=== PATIENT | male | born 1985 ===

== ENCOUNTER 2023-07-02 08:56 | Emergency (ER) | payer OTHER, SELFPAY ==
[2023-07-02 09:06] VITALS: BP 160/80; PULSE 89; RESP 18; TEMP 37.1; O2SAT 100; BMI 21.8
[2023-07-02 09:28] LABS: IDNOW Serial# BCCEAD1C
--- NOTE | 2023-07-02 09:34 | ED.GENADULT ---
HPI - General Adult General Chief complaint: Dizziness Stated complaint: dizziness Time Seen by Provider: 07/02/23 09:20 Source: patient Mode of arrival: ambulatory Limitations: no limitations History of Present Illness HPI narrative: This is a 37 years old male presented to the emergency department with chief complaint of chills malaise weakness. He states that he has been using cocaine. He does no want to go to rehab he states that he just got out of the rehab Onset (ago): day(s) (2) Radiation: non-radiation Severity: moderate Pain Consistency: constant Relieving factors: none Related Data Allergies Allergy/AdvReac Type Severity Reaction Status Date / Time No Known Allergies Allergy Unverified 05/13/20 17:17 [No Known Allergies*] Review of Systems Constitutional: Constitutional: Reports no additional constitutional complaints Cardiovascular: Cardiovascular: Reports no additional cardiovascular complaints Neurologic: Reports system reviewed and no additional complaints, except as documented [facility] Past Medical History [facility] Narrative: cocaine use Social History Social History Unable to assess alcohol history related to: Refusing to respond Smoked in Last 30 Days: Yes Use of substances other than those prescribed or required for medical reasons: Yes Substance Use Type: Crack/Cocaine and Marijuana Advance Directives: No Advance Directives Information Provided: No Physical Exam ED Vital Signs: Vital Signs - 24 hr 07/02/23 09:06 07/02/23 09:50 07/02/23 12:41 Temperature 98.8 F 98 F Pulse Rate 89 86 Respiratory Rate 18 20 14 Blood Pressure 160/80 H 110/70 Pulse Oximetry 100 96 Oxygen Delivery Method Room Air Room Air BMI result Body Mass Index 21.8 Const General: cooperative Nutritional Appearance: well nourished Orientation/consciousness: patient oriented x3 HENMT Head: Yes normal to inspection Ears: hearing grossly normal bilaterally Face and sinus: Yes normal facial exam Mouth: Normal oral and palatal mucosa present Throat: Yes posterior oropharynx normal Neck Neck: Yes normal visual inspection Thyroid: Thyroid normal Resp Effort & Inspection: normal respiratory effort Auscultation: clear to auscultation bilaterally Cardio Jugular venous distension: no JVD Palpation: normal PMI Rate: regular rate Rhythm: regular rhythm GI Inspection: Yes normal to inspection Palpation (GI): Soft to palpation, not firm and nontender Percussion: Yes normal to percussion Auscultation: normal bowel sounds Skin General skin exam: no rashes or lesions noted and elasticity normal Lesions: no lesions Rashes: no rashes Neuro General: patient oriented x3 Cranial nerves: Yes CN's II-XII intact bilaterally Course Reevaluation(s) Reevaluation #1: seen by reading recovery teacher decline detox Time: 14:17 Medications Administered Discontinued Medications Generic Name Dose Route Start Last Admin Trade Name fEraq PRN Reason Stop Dose Admin Ibuprofen 800 mg 07/02/23 09:25 07/02/23 09:39 Ibuprofen 800 Mg Tablet PO 07/02/23 09:26 800 mg ONCE ONE Administration Ondansetron HCl 4 mg 07/02/23 09:25 07/02/23 09:39 Ondansetron Odt 4 Mg Tab.Rapdis TRANSLINGU 07/02/23 09:26 4 mg ONCE ONE Administration Medical Decision Making Medical Decision Making [facility] Narrative: Patient presented complaining of generalized malaise dizziness he has been using cocaine. will obtain blood work and reassess Differential Diagnosis Differential Diagnoses: The differential diagnosis associated with the presentation includes Cocaine abuse/drug withdrawal/infection Admission/Observation Consideration of admission/observation: Escalation of care including admission/observation considered Lab Data [facility] Lab Attestation statement: I reviewed the patient's lab results. 07/02/23 09:44 07/02/23 09:44 Labs: Lab Results 07/02/23 07/02/23 Range/Units 09:09 09:44 WBC 10.2 (4.8-10.8) X10*3/uL RBC 4.73 (4.60-5.80) X10*6/uL Hgb 14.8 (14.0-18.0) g/dl Hct 42.5 (42.0-52.0) % MCV 89.9 (80.0-98.0) fL MCH 31.3 (27.0-33.0) pg MCHC 34.8 (31.0-36.0) g/dl RDW 12.7 (11.0-16.0) % Plt Count 383 (160-400) X10*3/uL MPV 8.5 L (9.4-12.4) fL Immature Gran % (Auto) 0.5 H (0.0-0.4) % Neut % (Auto) 63.1 (45-73) % Lymph % (Auto) 24.7 (20-40) % [place] % (Auto) 9.8 (2-11) % Eos % (Auto) 1.5 (0-4) % Baso % (Auto) 0.4 (0-2) % Lymph # (Auto) 2.5 (1.2-4.9) X10*3/uL [place] # (Auto) 1.0 (0.1-1.2) X10*3/uL Eos # (Auto) 0.2 (0.0-0.4) X10*3/uL Baso # (Auto) 0.0 (0.0-0.2) X10*3/uL Abs Immat Gran (auto) 0.05 H (0.00-0.03) X10*3/uL Absolute Neuts (auto) 6.5 (2.0-8.3) x10*3/uL Absolute Nucleated RBC 0.000 (0.0-0.012) X10*3/uL Nucleated RBC % (auto) 0.0 (0.0-0.2) /100WBC Sodium 140 (135-145) mmol/L Potassium 3.7 (3.3-5.1) mmol/L Chloride 102 (96-108) mmol/L Carbon Dioxide 25 (22-29) mmol/L Anion Gap 17 (12-20) BUN 13 (9-16) mg/dL Creatinine 0.94 (0.5-1.4) mg/dL Estim Creat Clear Calc 115.0 Estimated GFR > 60 Random Glucose 84 (60-115) mg/dL Calcium 10.2 (8.4-10.2) mg/dL Total Bilirubin 0.7 (0.0-1.0) mg/dL AST 20 (5-37) U/L ALT 14 (0-40) U/L Alkaline Phosphatase 67 (39-117) U/L Total Protein 8.1 H (6.5-8.0) g/dL Albumin 4.7 (3.5-5.0) g/dL COVID-19 ([facility]SELMO) Negative (Negative) COVID-19 Clin Com See Note Chronic Conditions Patient?s care impacted by: Other (substance abuse) Social Determinants Patient?s care significantly limited by Social Determinants of Health including: Inadequate housing homeless,drug abuse Discharge Plan Discharge Clinical Impression: Drug abuse, Cocaine abuse Patient Disposition: Home, Self-Care Instructions: Cocaine Abuse (ED) Additional Instructions: Follow-up with your primary care physician you declined detox return if you are worse Referrals: Physician,None [Primary Care Provider] - 2 days
[2023-07-02] MEDS: Ibuprofen 800 MG TABLET PO (09:39)
[2023-07-02] MEDS: Ondansetron ODT 4 MG TAB.RAPDIS TRANSLINGU (09:39)
[2023-07-02 09:50] VITALS: RESP 20; TEMP 36.6
[2023-07-02 09:50] LABS: MANUAL DIFF FLAG NO
[2023-07-02 09:52] LABS: Basophils Percent Auto 0.4 % (0-2); Eosinophils Absolute Auto 0.2 X10*3/uL (0.0-0.4); Eosinophils Percent Auto 1.5 % (0-4); Hematocrit 42.5 % (42.0-52.0); Hemoglobin 14.8 g/dl (14.0-18.0); Imm Gran Abs Auto 0.05 X10*3/uL (0.00-0.03); Imm Gran Pct Auto 0.5 % (0.0-0.4); Lymphocytes Absolute Auto 2.5 X10*3/uL (1.2-4.9); Lymphocytes Percent Auto 24.7 % (20-40); Mean Corpuscular HGB Conc 34.8 g/dl (31.0-36.0); Mean Corpuscular Hemoglobin 31.3 pg (27.0-33.0); Mean Corpuscular Volume 89.9 fL (80.0-98.0); Mean Platelet Volume 8.5 fL (9.4-12.4); Monocytes Percent Auto 9.8 % (2-11); Neutrophils Absolute Auto 6.5 x10*3/uL (2.0-8.3); Neutrophils Percent Auto 63.1 % (45-73); Platelet Count 383 X10*3/uL (160-400); Red Blood Count 4.73 X10*6/uL (4.60-5.80); Red Cell Distribution Width 12.7 % (11.0-16.0); White Blood Count 10.2 X10*3/uL (4.8-10.8)
[2023-07-02 10:13] LABS: Alanine Aminotransferase 14 U/L (0-40); Albumin Level 4.7 g/dL (3.5-5.0); Alkaline Phosphatase 67 U/L (39-117); Anion Gap 17 (12-20); Aspartate Amino Transferase 20 U/L (5-37); Bilirubin Total 0.7 mg/dL (0.0-1.0); Blood Urea Nitrogen 13 mg/dL (9-16); Calcium 10.2 mg/dL (8.4-10.2); Carbon Dioxide 25 mmol/L (22-29); Chloride 102 mmol/L (96-108); Estimated Glomerular Filt Rate > 60; Glucose Random 84 mg/dL (60-115); Potassium 3.7 mmol/L (3.3-5.1); Sodium 140 mmol/L (135-145); Total Protein 8.1 g/dL (6.5-8.0)
[2023-07-02 11:35] LABS: COVID-19 Test Negative (Negative)
[2023-07-02 12:41] VITALS: BP 110/70; PULSE 86; RESP 14; O2SAT 96
--- NOTE | 2023-07-02 12:43 | MHC.RECOVSUP ---
Met with pt in ED6h who is here for dizziness. Pt informs he has been using about an 8 ball of cocaine nasally every day but has no interest in ATS at this time. Pt provided resources and has no other questions or concerns at this time.
== END 2023-07-02 14:30 | disposition home or self-care (01) ==
PROVIDERS: Emergency Provider Emergency Medicine
DX: R42 Dizziness and giddiness (principal); F14.10 Cocaine abuse, uncomplicated; F12.90 Cannabis use, unspecified, uncomplicated; Z71.51 Drug abuse counseling and surveillance of drug abuser; Z11.52 Encounter for screening for COVID-19; Z20.822 Contact with and (suspected) exposure to COVID-19; Z79.899 Other long term (current) drug therapy
CPT/HCPCS: 36415; 80053; 85025; 87635; 99283; 99284

== ENCOUNTER 2023-09-06 11:33 | Emergency (ER) | payer OTHER, SELFPAY ==
--- NOTE | ~2023-09-06 | XR_ITS ---
EXAMINATION: XR CHEST 12:23 PM CLINICAL INFORMATION: Chest pain COMPARISON: None available. TECHNIQUE: Frontal view of the chest was obtained. FINDINGS: No significant abnormality is noted involving the heart, lungs, mediastinum, bony thorax or soft tissues. XR/XR chest 1V IMPRESSION: No acute disease
--- NOTE | 2023-09-06 11:34 | ECG_ITS ---
Test Reason : chest pain/OD Blood Pressure : / mmHG Vent. Rate : 070 BPM Atrial Rate : 070 BPM P-R Int : 154 ms QRS Dur : 090 ms QT Int : 394 ms P-R-T Axes : 082 055 076 degrees QTc Int : 425 ms Normal sinus rhythm Normal ECG When compared with ECG of 22-JUL-2008 12:40, No significant change was found Referred By: Generic ED Physician Electronically Signed By:SEBASTIEN MATA MD
[2023-09-06 11:50] VITALS: BP 110/73; PULSE 82; RESP 20; TEMP 36.6; O2SAT 98; BMI 19.8
[2023-09-06 12:35] LABS: MANUAL DIFF FLAG NO
[2023-09-06 12:37] LABS: Basophils Percent Auto 0.2 % (0-2); Eosinophils Percent Auto 0.1 % (0-4); Hematocrit 39.8 % (42.0-52.0); Hemoglobin 13.7 g/dl (14.0-18.0); Imm Gran Abs Auto 0.07 X10*3/uL (0.00-0.03); Imm Gran Pct Auto 0.4 % (0.0-0.4); Lymphocytes Absolute Auto 1.5 X10*3/uL (1.2-4.9); Lymphocytes Percent Auto 8.3 % (20-40); Mean Corpuscular HGB Conc 34.4 g/dl (31.0-36.0); Mean Corpuscular Hemoglobin 31.1 pg (27.0-33.0); Mean Corpuscular Volume 90.5 fL (80.0-98.0); Mean Platelet Volume 8.6 fL (9.4-12.4); Monocytes Absolute Auto 1.3 X10*3/uL (0.1-1.2); Neutrophils Absolute Auto 15.6 x10*3/uL (2.0-8.3); Platelet Count 322 X10*3/uL (160-400); Red Cell Distribution Width 14.4 % (11.0-16.0); White Blood Count 18.5 X10*3/uL (4.8-10.8)
[2023-09-06] MEDS: ondansetron HCL 4 MG/2 ML VIAL IVPUSH (12:38)
[2023-09-06] MEDS: 0.9 % Sodium Chloride 1,000 ML 999 ML IV (12:38)
--- NOTE | 2023-09-06 12:43 | ED_ITS ---
HPI - General Adult General Chief complaint: ETOH/Substance Use Stated complaint: OD? Time Seen by Provider: 09/06/23 12:05 Source: patient Mode of arrival: ambulatory Limitations: no limitations History of Present Illness HPI narrative: 37-year-old male came in for evaluation of left-sided chest pain after smoked crack cocaine about 2 hours earlier. Patient only use cocaine by smoking no IV abuse, no family history of heart disease, chest pain is localized to the left side of the chest with no radiation the about 10. in severity. Related Data Allergies Allergy/AdvReac Type Severity Reaction Status Date / Time No Known Allergies Allergy Unverified 05/13/20 17:17 [No Known Allergies*] Review of Systems 2 Review of Systems: All other systems are reviewed and are negative Constitutional: Reports as per HPI and Reports no additional constitutional complaints Eyes: Reports as per HPI and Reports no additional eye complaints Reports system reviewed and no additional complaints, except as documented Cardiovascular: Reports as per HPI and Reports no additional cardiovascular complaints Respiratory: Reports as per HPI and Reports no additional respiratory complaints Gastrointestinal: Reports as per HPI and Reports no additional gastrointestinal complaints Genitourinary: Reports no additional female genitourinary complaints Musculoskeletal: Reports no additional musculoskeletal complaints Skin/Breast: Reports system reviewed and no additional complaints, except as docu Psychiatric: Reports no additional psychiatric complaints Endocrine: Reports no additional endocrine complaints Hematologic/Lymphatic: Reports no additional hematologic/lymphatic complaints Allergic/Immunologic: Reports no additional allergic/immunologic complaints Reports system reviewed and no additional complaints, except as documented and Reports Abnormal speech present [facility] Social History Social History Unable to assess alcohol history related to: Refusing to respond Substance Use Type: Crack/Cocaine and Marijuana Advance Directives: No Physical Exam ED Vital Signs: Vital Signs - 24 hr 09/06/23 11:50 09/06/23 14:31 Temperature 97.9 F Pulse Rate 82 55 Respiratory Rate 20 14 Blood Pressure 110/73 103/67 Pulse Oximetry 98 100 Oxygen Delivery Method Room Air Room Air BMI result Body Mass Index 19.8 Vital signs have been reviewed and appear to be correct. Blood pressure elevated. Heart rate normal. Respiratory rate normal. Temperature normal. Oxygen saturation normal. Appearance: Alert. Oriented X3. No acute distress. Head: Normal external exam. Normocephalic. Atraumatic. No Child signs noted. No raccoon eyes noted Eyes: PERRLA. EOMI. Conjunctiva and sclera normal. Eyelids normal. ENT: TM's Normal. Pharynx normal. Uvula midline. Moist mucous membranes. No trismus noted. No drooling noted. No muffled voice noted. Neck: Normal inspection. Neck supple. FROM. No adenopathy. Thyroid Normal. No meningeal signs. No neck mass noted. CVS: Normal heart rate and rhythm. Heart sound normal. No murmurs noted. Pulses normal throughout. Respiratory: No respiratory distress. Painless inspiration. Breath sounds normal. No wheezes/rales/rhonchi noted. Chest nontender. No accessory muscle usage noted or decreased air movement noted. Abdomen: Soft and nontender. Bowel sounds normal in all 4 quadrants. No distention noted. No organomegaly noted. No visible injury noted. Back: No CVA tenderness. Full range of motion noted. Skin: Skin warm and dry. Normal skin color. Normal skin turgor. No rashes/lesions/lacerations noted. Extremities: No lower extremity edema. Extremities exhibit normal range of motion. Extremities nontender. Neuro: Oriented X 3. Cranial nerve exam: II-XII are grossly intact No motor deficit. No sensory deficit. Reflexes normal. Course Reevaluation(s) Reevaluation #1: 37-year-old male came in for chest pain after using cocaine, EKG is unremarkable and troponin is negative x2 patient now is chest pain-free. Time: 15:57 Medications Administered Discontinued Medications Generic Name Dose Route Start Last Admin Trade Name Freq PRN Reason Stop Dose Admin Sodium Chloride 1,000 mls @ 999 mls/hr 09/06/23 12:13 09/06/23 12:38 Ns IV 09/06/23 13:13 999 mls/hr .Q1H1M ONE Administration Ondansetron HCl 4 mg 09/06/23 12:13 09/06/23 12:38 Ondansetron Hcl 4 Mg/2 Ml Vial IVPUSH 09/06/23 12:14 4 mg ONCE ONE Administration Medical Decision Making Differential Diagnosis Differential Diagnoses: The differential diagnosis associated with the presentation includes ( ACS, pneumothorax, pleural effusion, pneumonia, electrolyte abnormality, severe anemia.) Admission/Observation Consideration of admission/observation: Escalation of care including admission/observation considered Lab Data [facility] Lab Attestation statement: I reviewed the patient's lab results. 09/06/23 12:29 09/06/23 12:29 Labs: Lab Results 09/06/23 09/06/23 Range/Units 12:29 15:16 WBC 18.5 H (4.8-10.8) X10*3/uL RBC 4.40 L (4.60-5.80) X10*6/uL Hgb 13.7 L (14.0-18.0) g/dl Hct 39.8 L (42.0-52.0) % MCV 90.5 (80.0-98.0) fL MCH 31.1 (27.0-33.0) pg MCHC 34.4 (31.0-36.0) g/dl RDW 14.4 (11.0-16.0) % Plt Count 322 (160-400) X10*3/uL MPV 8.6 L (9.4-12.4) fL Immature Gran % (Auto) 0.4 (0.0-0.4) % Neut % (Auto) 84.0 H (45-73) % Lymph % (Auto) 8.3 L (20-40) % [place] % (Auto) 7.0 (2-11) % Eos % (Auto) 0.1 (0-4) % Baso % (Auto) 0.2 (0-2) % Lymph # (Auto) 1.5 (1.2-4.9) X10*3/uL [place] # (Auto) 1.3 H (0.1-1.2) X10*3/uL Eos # (Auto) 0.0 (0.0-0.4) X10*3/uL Baso # (Auto) 0.0 (0.0-0.2) X10*3/uL Abs Immat Gran (auto) 0.07 H (0.00-0.03) X10*3/uL Absolute Neuts (auto) 15.6 H (2.0-8.3) x10*3/uL Absolute Nucleated RBC 0.000 (0.0-0.012) X10*3/uL Nucleated RBC % (auto) 0.0 (0.0-0.2) /100WBC Sodium 139 (135-145) mmol/L Potassium 4.0 (3.3-5.1) mmol/L Chloride 106 (96-108) mmol/L Carbon Dioxide 25 (22-29) mmol/L Anion Gap 12 (12-20) BUN 11 (9-16) mg/dL Creatinine 0.83 (0.5-1.4) mg/dL Estim Creat Clear Calc 118.4 Estimated GFR > 60 Random Glucose 63 (60-115) mg/dL Calcium 9.4 D (8.4-10.2) mg/dL Total Bilirubin 0.6 (0.0-1.0) mg/dL Direct Bilirubin 0.2 (0.0-0.5) mg/dL AST 15 (5-37) U/L ALT 9 (0-40) U/L Alkaline Phosphatase 50 (39-117) U/L Troponin I High Sens 4.3 6.1 (<3.5-35.0) ng/L B-Natriuretic Peptide 17 (<100) pg/mL Total Protein 6.4 L (6.5-8.0) g/dL Albumin 4.0 (3.5-5.0) g/dL Lipase 21 (8-78) U/L Influenza Type A (PCR) NEGATIVE (Negative) Influenza Type B (PCR) NEGATIVE (Negative) RSV RNA Qual (PCR) NEGATIVE (Negative) SARS-CoV-2 RNA (RT-PCR) NEGATIVE (Negative) Independent Interpretation I performed an independent interpretation of an: EKG ( Normal sinus rhythm at 70 beats per minutes, normal intervals, no ST-T changes. no change from prior EKG) and Plain X-Ray ( Chest: No acute intrathoracic pathology.) Radiology Impression Discussion of test interpretation with radiology: I have reviewed the radiologist's reading. Discharge Plan Discharge Clinical Impression: Chest pain, Substance abuse Patient Disposition: Home, Self-Care Instructions: Polysubstance Abuse (ED)
[2023-09-06 12:49] LABS: Alanine Aminotransferase 9 U/L (0-40); Alkaline Phosphatase 50 U/L (39-117); Anion Gap 12 (12-20); Aspartate Amino Transferase 15 U/L (5-37); Bilirubin Direct 0.2 mg/dL (0.0-0.5); Bilirubin Total 0.6 mg/dL (0.0-1.0); Blood Urea Nitrogen 11 mg/dL (9-16); Calcium 9.4 mg/dL (8.4-10.2); Carbon Dioxide 25 mmol/L (22-29); Chloride 106 mmol/L (96-108); Creatinine Clr Calc Pharmacy 118.4; Estimated Glomerular Filt Rate > 60; Glucose Random 63 mg/dL (60-115); Lipase 21 U/L (8-78); Sodium 139 mmol/L (135-145); Total Protein 6.4 g/dL (6.5-8.0)
[2023-09-06 12:54] LABS: B Type Natriuretic Peptide 17 pg/mL (<100)
[2023-09-06 12:56] LABS: Troponin-I High Sensitivity 4.3 ng/L (<3.5-35.0)
[2023-09-06 13:21] LABS: Influenza A PCR NEGATIVE (Negative); Influenza B PCR NEGATIVE (Negative); Resp Syncy Virus RNA Qual PCR NEGATIVE (Negative); SARS COV2 PCR INHOUSE NEGATIVE (Negative)
[2023-09-06 14:31] VITALS: BP 103/67; PULSE 55; RESP 14; O2SAT 100
[2023-09-06 15:42] LABS: Troponin-I High Sensitivity 6.1 ng/L (<3.5-35.0)
[2023-09-06 16:00] VITALS: BP 116/66; PULSE 51; RESP 16; TEMP 36.7; O2SAT 99
== END 2023-09-06 16:31 | disposition home or self-care (01) ==
PROVIDERS: Emergency Provider Emergency Medicine
DX: R07.9 Chest pain, unspecified (principal); F19.10 Other psychoactive substance abuse, uncomplicated; Z11.52 Encounter for screening for COVID-19; Z20.822 Contact with and (suspected) exposure to COVID-19
CPT/HCPCS: 0241U; 36415; 71045; 80048; 80076; 83690; 83880; 84484; 85025; 93005; 96374; 99284; J2405

== ENCOUNTER → 2023-09-06 11:34 | Outpatient (BNV) | payer OTHER, SELFPAY | PROVIDERS: Emergency Provider Emergency Medicine; Visit Provider Internal Medicine Cardiovascular Disease | DX: R07.9 Chest pain, unspecified (principal) | CPT/HCPCS: 93010 ==

== ENCOUNTER 2023-10-12 17:31 | Emergency (ER) | payer OTHER, SELFPAY ==
--- NOTE | 2023-10-12 | ECG_ITS ---
Test Reason : CP Blood Pressure : / mmHG Vent. Rate : 072 BPM Atrial Rate : 072 BPM P-R Int : 146 ms QRS Dur : 084 ms QT Int : 384 ms P-R-T Axes : 065 072 068 degrees QTc Int : 420 ms Normal sinus rhythm Normal ECG When compared with ECG of 06-SEP-2023 11:38, No significant change was found Referred By: Generic ED Physician Electronically Signed By:Joselito Dickson
--- NOTE | ~2023-10-12 | XR_ITS ---
EXAMINATION: XR CHEST CLINICAL INFORMATION: Chest pain. COMPARISON: Chest radiograph 09/06/2023. TECHNIQUE: PA view of the chest was obtained. FINDINGS: Normal heart size. No focal airspace opacities, pleural effusion or pneumothorax. No acute osseous findings. Visualized upper abdomen is within normal limits. XR/XR chest 1V IMPRESSION: No acute cardiopulmonary findings.
[2023-10-12 17:34] VITALS: BP 125/81; PULSE 86; RESP 18; TEMP 37.3; O2SAT 96; BMI 21.8
[2023-10-12 17:57] LABS: MANUAL DIFF FLAG NO
[2023-10-12 18:01] LABS: Basophils Percent Auto 0.3 % (0-2); Eosinophils Absolute Auto 0.1 X10*3/uL (0.0-0.4); Hematocrit 39.8 % (42.0-52.0); Hemoglobin 13.5 g/dl (14.0-18.0); Imm Gran Abs Auto 0.03 X10*3/uL (0.00-0.03); Imm Gran Pct Auto 0.3 % (0.0-0.4); Lymphocytes Absolute Auto 3.1 X10*3/uL (1.2-4.9); Lymphocytes Percent Auto 34.1 % (20-40); Mean Corpuscular HGB Conc 33.9 g/dl (31.0-36.0); Mean Corpuscular Hemoglobin 31.3 pg (27.0-33.0); Mean Corpuscular Volume 92.1 fL (80.0-98.0); Mean Platelet Volume 8.3 fL (9.4-12.4); Monocytes Absolute Auto 0.6 X10*3/uL (0.1-1.2); Monocytes Percent Auto 6.2 % (2-11); Neutrophils Absolute Auto 5.2 x10*3/uL (2.0-8.3); Neutrophils Percent Auto 58.1 % (45-73); Platelet Count 438 X10*3/uL (160-400); Red Blood Count 4.32 X10*6/uL (4.60-5.80); Red Cell Distribution Width 14.7 % (11.0-16.0); White Blood Count 8.9 X10*3/uL (4.8-10.8)
[2023-10-12 18:16] LABS: Anion Gap 11 (12-20); Blood Urea Nitrogen 10 mg/dL (9-16); Calcium 8.9 mg/dL (8.4-10.2); Carbon Dioxide 26 mmol/L (22-29); Chloride 108 mmol/L (96-108); Creatinine Clr Calc Pharmacy 146.6; Estimated Glomerular Filt Rate > 60; Glucose Random 98 mg/dL (60-115); Potassium 4.2 mmol/L (3.3-5.1); Sodium 141 mmol/L (135-145)
[2023-10-12 18:25] LABS: Troponin-I High Sensitivity < 2.7 ng/L (<3.5-35.0)
[2023-10-12 18:41] LABS: Influenza A PCR NEGATIVE (Negative); Influenza B PCR NEGATIVE (Negative); Resp Syncy Virus RNA Qual PCR NEGATIVE (Negative); SARS COV2 PCR INHOUSE NEGATIVE (Negative)
[2023-10-12 20:16] VITALS: BP 116/74; PULSE 57; RESP 17; TEMP 37.1; O2SAT 98
--- NOTE | 2023-10-12 21:00 | ED_ITS ---
HPI - Chest Pain General Chief Complaint: Chest Pain Stated Complaint: chest npain Time Seen by Provider: 10/12/23 20:59 Source: patient Mode of arrival: ambulatory Limitations: no limitations History of Present Illness HPI narrative: 38 yo male with remote history of asthma but no INH use recently he is a smoker presents with two complaints 1.) R lower dental pain for weeks but no facial swelling it comes and goes and hurts up and down his face. 2) uri symptoms cough runny nose and sore throat with chest tightness and sore chest to touch for 3 days no hx of cardiac issues. has taken no medications MD complaint: chest pain Onset (ago): day(s) (3) Timing of current episode: constant Prior episodes: Yes Onset: during rest Pain location: substernal Pain radiation: none Severity: moderate Quality: tightness Relieving factors: nothing Exacerbating factors: palpation Context: recent illness Associated symptoms: other (dental pain, runny nose cough, sore throat) Treatment prior to arrival: none Related Data Previous Rx's Medication Instructions Recorded albuterol sulfate 90 mcg/actuation 2 puff inhalation QID PRN 10/12/23 aerosol inhaler shortness of breath or wheezing #6.7 grams amoxicillin 500 mg capsule 500 mg PO TID 7 days #21 caps 10/12/23 ibuprofen 600 mg tablet 600 mg PO Q6H PRN pain #30 tabs 10/12/23 Allergies Allergy/AdvReac Type Severity Reaction Status Date / Time No Known Allergies Allergy Verified 10/12/23 17:36 [No Known Allergies*] Review of Systems 2 Review of Systems: Constitutional : No Fever, No Chills ENT/Mouth : No swallowing difficulty, no change in voice, positive dental pain, positive jaw pain, no facial swelling, pos runny nose, pos sore throat Eyes: No Eye Pain, No Swelling Cardiovascular : pos Chest Pain, No SOB Respiratory : pos Cough, No Sputum Gastrointestinal : No Nausea, No Vomiting, No Diarrhea Genitourinary : No Dysuria Musculoskeletal : No Myalgias Skin : No rash Neuro : No Weakness, No Numbness, No Headache All other systems reviewed and are negative [facility] Past Medical History Attestation statement: The following information was validated with the patient. Medical History Asthma Social History Social History (Updated 10/12/23 @ 21:25 by Anneliese Chu DO) Unable to assess alcohol history related to: Refusing to respond Patient Tobacco Use Status: Current everyday Tobacco user Substance Use Type: Crack/Cocaine and Marijuana Physical Exam 2 Vital Signs: Vital Signs: Last Vital Signs Temp 98.8 F 10/12/23 20:16 Pulse 57 10/12/23 20:16 Resp 17 10/12/23 20:16 BP 116/74 10/12/23 20:16 Pulse Ox 98 10/12/23 20:16 O2 Del Method Room Air 10/12/23 20:16 BMI result Body Mass Index 21.8 Appearance: Alert. Oriented X3. No acute distress. Eyes: Pupils equal, round and reactive to light. ENT: Pharynx normal. R lower molar impacted with sig decay and pulp exposed - no fluctuance, no trismus, no submandibular or sublingual swelling and no abscess seen or felt. R TM was normal Neck: Normal inspection. Neck supple. CVS: Normal heart rate and rhythm. Pulses normal. Chest: ttp along anterior chest wall costochondral border Respiratory: No respiratory distress. Breath sounds slightly diminished bilaterally. Abdomen: Soft and nontender. Skin: Skin warm and dry. Normal skin color. Normal skin turgor. Extremities: No lower extremity edema. Neuro: Oriented X 3. No motor deficit. No sensory deficit. Medical Decision Making Medical Decision Making [facility] Narrative: 38 yo male with smoker here with c/o toothache chest wall pain and with URI symptoms at this time no risk factors for ACS, he is PERC negative - suspect toothache and URI with costochondritis will obtain EKG, trop x 1 given pain for 3 days, CXR for pneumonia - start on INH, amoxicillin given exposed pulp of tooth and motrin. He has no deeper space infection of the mouth. Not toxic appearing. Differential Diagnosis Differential Diagnoses: The differential diagnosis associated with the presentation includes toothache, costochondritis, viral syndrome Admission/Observation Consideration of admission/observation: Escalation of care including admission/observation considered labs and EKG reassuring Lab Data [facility] Lab Attestation statement: I reviewed the patient's lab results. 10/12/23 17:52 10/12/23 17:52 Labs: Lab Results 10/12/23 Range/Units 17:52 WBC 8.9 (4.8-10.8) X10*3/uL RBC 4.32 L (4.60-5.80) X10*6/uL Hgb 13.5 L (14.0-18.0) g/dl Hct 39.8 L (42.0-52.0) % MCV 92.1 (80.0-98.0) fL MCH 31.3 (27.0-33.0) pg MCHC 33.9 (31.0-36.0) g/dl RDW 14.7 (11.0-16.0) % Plt Count 438 H D (160-400) X10*3/uL MPV 8.3 L (9.4-12.4) fL Immature Gran % (Auto) 0.3 (0.0-0.4) % Neut % (Auto) 58.1 (45-73) % Lymph % (Auto) 34.1 (20-40) % [place] % (Auto) 6.2 (2-11) % Eos % (Auto) 1.0 (0-4) % Baso % (Auto) 0.3 (0-2) % Lymph # (Auto) 3.1 (1.2-4.9) X10*3/uL [place] # (Auto) 0.6 (0.1-1.2) X10*3/uL Eos # (Auto) 0.1 (0.0-0.4) X10*3/uL Baso # (Auto) 0.0 (0.0-0.2) X10*3/uL Abs Immat Gran (auto) 0.03 (0.00-0.03) X10*3/uL Absolute Neuts (auto) 5.2 (2.0-8.3) x10*3/uL Absolute Nucleated RBC 0.000 (0.0-0.012) X10*3/uL Nucleated RBC % (auto) 0.0 (0.0-0.2) /100WBC Sodium 141 (135-145) mmol/L Potassium 4.2 (3.3-5.1) mmol/L Chloride 108 (96-108) mmol/L Carbon Dioxide 26 (22-29) mmol/L Anion Gap 11 L (12-20) BUN 10 (9-16) mg/dL Creatinine 0.73 (0.5-1.4) mg/dL Estim Creat Clear Calc 146.6 Estimated GFR > 60 Random Glucose 98 (60-115) mg/dL Calcium 8.9 (8.4-10.2) mg/dL Troponin I High Sens < 2.7 D (<3.5-35.0) ng/L Influenza Type A (PCR) NEGATIVE (Negative) Influenza Type B (PCR) NEGATIVE (Negative) RSV RNA Qual (PCR) NEGATIVE (Negative) SARS-CoV-2 RNA (RT-PCR) NEGATIVE (Negative) Independent Interpretation I performed an independent interpretation of an: EKG and Plain X-Ray (normal ) Interpretation: Rate: 72 Rhythm: NSR [place]: normal Normal P waves. Normal ADELINA. Normal QRS complex. ST T wave : normal no HOMAR qTC: normal prior studies: no acute ischemia The study has been interpreted contemporaneously by me. . Radiology Impression Discussion of test interpretation with radiology: I have reviewed the radiologist's reading. Prescription Management I considered prescription management with: Antibiotic and Other Discharge Plan Discharge Clinical Impression: Tooth ache, Acute costochondritis Patient Disposition: Home, Self-Care Instructions: Costochondritis (ED), Toothache (ED) Additional Instructions: return for worsening pain facial swelling fevers your blood tests, ekg and chest xray were normal your viral swabs for covid were negative finish all antibiotics you may have diarrhea please take a probioitic more than 8 loose stools a day is not normal Prescriptions: New amoxicillin 500 mg capsule 500 mg PO TID 7 Days Qty: 21 0RF ibuprofen 600 mg tablet 600 mg PO Q6H PRN (Reason: pain) Qty: 30 0RF albuterol sulfate 90 mcg/actuation HFA aerosol inhaler 2 puff inhalation QID PRN (Reason: shortness of breath or wheezing) Qty: 6.7 0RF
[2023-10-12] MEDS: Ibuprofen 600 MG TABLET PO (21:31)
[2023-10-12] MEDS: Albuterol Sulfate 90 MCG 8 GM INHALER 2 PUFF INHALE (21:31)
[2023-10-12] MEDS: Amoxicillin 500 MG CAPSULE PO (21:31)
== END 2023-10-12 21:52 | disposition home or self-care (01) ==
PROVIDERS: Emergency Provider Emergency Medicine
DX: M94.0 Chondrocostal junction syndrome [Tietze] (principal); K08.89 Other specified disorders of teeth and supporting structures; R07.89 Other chest pain; F17.200 Nicotine dependence, unspecified, uncomplicated; R05.9 Cough, unspecified; J02.9 Acute pharyngitis, unspecified; Z20.822 Contact with and (suspected) exposure to COVID-19; Z20.828 Contact with and (suspected) exposure to other viral communicable diseases
CPT/HCPCS: 0241U; 36415; 71045; 80048; 84484; 85025; 93005; 99284

== ENCOUNTER → 2023-10-12 17:45 | Outpatient (BNV) | payer OTHER, SELFPAY | PROVIDERS: Emergency Provider Emergency Medicine; Visit Provider Internal Medicine Cardiovascular Disease | DX: R07.9 Chest pain, unspecified (principal) | CPT/HCPCS: 93010 ==

== ENCOUNTER 2024-02-03 00:36 | Inpatient (IN) | payer OTHER, SELFPAY ==
[2024-02-03] VITALS (12 sets, daily range): BP systolic 112–130; BP diastolic 67–85; PULSE 58–94; RESP 17–20; TEMP 36.7–38.2; O2SAT 97–99; BMI 21.1
--- NOTE | ~2024-02-03 | CT_ITS ---
EXAMINATION: CT FEMUR WITH CONTRAST, RIGHT CLINICAL INFORMATION: COMPARISON: None available. TECHNIQUE: CT through the right femur was obtained after the uneventful administration of 85 mL of Omnipaque 350 intravenous contrast. Coronal and sagittal reformats were dated on a dedicated workstation for comparison. This CT examination was performed using dose optimization techniques as appropriate, variously including the following: *Automated exposure control *Adjustment of mA and/or kV according to patient size (this includes techniques or standardized protocols for targeted exams where dose is matched to indication/reason for exam; i.e. extremities or head) *Use of iterative reconstruction technique DLP: 470 mGy-cm FINDINGS: Marked skin thickening and subjacent subcutaneous fat stranding of the right anterolateral proximal thigh. Small, 2 cm focus of subcutaneous packing material centered near the location of greatest skin thickening, likely correlates to location of recent drainage. No discrete, rim-enhancing fluid collections identified. Inflammatory fat stranding about the anterior thigh musculature without definite evidence of intramuscular extension. Mildly enlarged right inguinal lymph nodes, measuring up to 1.2 cm in short axis, likely reactive. Osseous structures unremarkable without osseous cortical erosions, periosteal reaction, or osteopenia. Visualized right knee joint unremarkable. Visualized intrapelvic contents unremarkable. CT/CT femur RT w IV con IMPRESSION: 1. Marked skin thickening and subjacent subcutaneous fat stranding of the right anterolateral proximal thigh, in keeping with the provided history of skin/soft tissue infection. No discrete, rim-enhancing fluid collection identified or evidence of extension into the thigh musculature/osseous involvement. 2. Small, 2 cm focus of subcutaneous packing material centered near the location of greatest skin thickening, likely correlates to location of recent drainage. 3. Mildly enlarged right inguinal lymph nodes, likely reactive.
--- NOTE | ~2024-02-03 | CT_ITS ---
EXAMINATION: CT HEAD WITHOUT CONTRAST CLINICAL INFORMATION: Fall. Blurred vision. COMPARISON: None. TECHNIQUE: Contiguous axial imaging was performed from the skullbase to vertex without intravenous administration of contrast. This CT examination was performed using dose optimization techniques as appropriate, variously including the following: *Automated exposure control *Adjustment of mA and/or kV according to patient size (this includes techniques or standardized protocols for targeted exams where dose is matched to indication/reason for exam; i.e. extremities or head) *Use of iterative reconstruction technique DLP: 803 mGy-cm. FINDINGS: There is no evidence of acute intracranial hemorrhage or territorial infarction. No abnormal mass effect or midline shift is seen. No extra-axial fluid collections are identified. There is mild prominence of the lateral ventricles, otherwise nonspecific. The third and fourth ventricles are normal in size. There is no abnormal attenuation within the brain parenchyma. There is a fluid level in the aditus ad antrum with soft tissue opacification of the left mastoid air cells. Although not targeted for evaluation, the tympanic membrane on the left side appears retracted and a portion of the short process of the incus in the left middle ear cavity is eroded with focal soft tissue density at this site in the fossa incudis. There are some areas of osseous thinning in the tegmen mastoideum on the left side as well. The right mastoid air cells and visualized portions of the paranasal sinuses are fairly well aerated. The adenoid soft tissues are prominent, measuring up to 2 cm in oblique AP dimension. CT/CT head/brain wo IV con IMPRESSION: No acute intracranial pathology. Mild disproportionate prominence of the lateral ventricles may be developmental. No obvious obstructing lesion visible. Adenoid tonsillar hypertrophy. Fluid level in the aditus ad antrum with soft tissue opacification of the left mastoid air cells. Areas of osseous thinning in the tegmen mastoideum as well. Additional soft tissue density at the expected site of the reported short process of the incus in the epitympanum of the left middle ear cavity. Perceived retraction of the tympanic membrane. The possibility of chronic otomastoiditis and an underlying cholesteatoma cannot be ruled out. Recommend follow-up ENT evaluation to guide further management.
--- NOTE | ~2024-02-03 | US_ITS ---
EXAMINATION: US SCROTUM CLINICAL INFORMATION: Lump right scrotum. COMPARISON: None available. TECHNIQUE: A sonogram of the scrotum was performed assessing preston-scale appearance and color Doppler flow. Spectral Doppler analysis of the arterial and venous flow were performed in the testes bilaterally. FINDINGS: RIGHT: Right testicle measures 3.4 x 4.5 x 2.1 cm, volume 17.0 mL. Innumerable echogenic foci scattered within the testicle are characteristic of microcalcifications. Spectral Doppler analysis of the arterial and venous flow is normal in the right testis. 0.5 x 0.3 x 0.4 cm cyst in the right epididymal head. No right hydrocele or varicocele is seen. Right epididymal Doppler flow is normal. No significant hydrocele. No significant varicocele. LEFT: Left testicle measures 4.9 x 2.3 x 2.8 cm, volume 15.8 mL. Innumerable echogenic foci scattered within the testicle are characteristic of microcalcifications. Spectral Doppler analysis of the arterial and venous flow is normal in the left testis. Left epididymal head is normal in size. No left hydrocele or varicocele is seen. Left epididymal Doppler flow is normal. A small echogenic focus in the left scrotum may represent a scrotal colin. No significant hydrocele. No significant varicocele. US/US scrotum IMPRESSION: 1. 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 2. A 0.5 cm cyst in the right epididymal head. 3. A small echogenic focus in the left scrotum may represent a scrotal colin. This study was presented today February 05, 2024 for interpretation. Stat results provided at this time as requested by referring provider.
[2024-02-03 01:18] LABS: Basophils Absolute Auto 0.1 X10*3/uL (0.0-0.2); Basophils Percent Auto 0.3 % (0-2); Eosinophils Absolute Auto 0.1 X10*3/uL (0.0-0.4); Eosinophils Percent Auto 0.3 % (0-4); Hematocrit 36.6 % (42.0-52.0); Hemoglobin 12.6 g/dl (14.0-18.0); Imm Gran Abs Auto 0.09 X10*3/uL (0.00-0.03); Imm Gran Pct Auto 0.5 % (0.0-0.4); Lymphocytes Absolute Auto 1.4 X10*3/uL (1.2-4.9); Lymphocytes Percent Auto 7.9 % (20-40); MANUAL DIFF FLAG NO; Mean Corpuscular HGB Conc 34.4 g/dl (31.0-36.0); Mean Corpuscular Hemoglobin 31.6 pg (27.0-33.0); Mean Corpuscular Volume 91.7 fL (80.0-98.0); Mean Platelet Volume 8.2 fL (9.4-12.4); Monocytes Absolute Auto 1.2 X10*3/uL (0.1-1.2); Neutrophils Absolute Auto 14.8 x10*3/uL (2.0-8.3); Platelet Count 376 X10*3/uL (160-400); Red Blood Count 3.99 X10*6/uL (4.60-5.80); White Blood Count 17.6 X10*3/uL (4.8-10.8)
[2024-02-03 01:32] LABS: Alanine Aminotransferase 13 U/L (0-40); Alkaline Phosphatase 72 U/L (39-117); Anion Gap 14 (12-20); Aspartate Amino Transferase 18 U/L (5-37); Bilirubin Total 0.2 mg/dL (0.0-1.0); Blood Urea Nitrogen 10 mg/dL (9-16); Calcium 9.7 mg/dL (8.4-10.2); Carbon Dioxide 29 mmol/L (22-29); Chloride 98 mmol/L (96-108); Creatinine Clr Calc Pharmacy 138.4; Estimated Glomerular Filt Rate > 60; Glucose Random 101 mg/dL (60-115); Potassium 3.9 mmol/L (3.3-5.1); Sodium 137 mmol/L (135-145); Total Protein 7.5 g/dL (6.5-8.0)
--- NOTE | 2024-02-03 02:50 | ED_ITS ---
HPI - Skin/Abscess/Foreign Bdy General Chief complaint: Skin/Abscess/Foreign Body Stated complaint: leg pain Time Seen by Provider: 02/03/24 02:44 Source: patient Mode of arrival: EMS Limitations: no limitations History of Present Illness ED Provider: Dr. Vic Singleton HPI narrative: 38-year-old male with a history of asthma and cocaine use disorder who presents emergency department for evaluation of pain in his right upper thigh. Patient states that he uses crack cocaine mixed with fentanyl, he smokes 5-10 times a day and did smoke prior to coming to the emergency department. He states that when he uses drugs he picks at his skin after especially after using cocaine. He states he noticed a small red dot on his right thigh that then became larger and more painful. He states this is grown over the last 10 days. States the wound was draining white pus. He states that a fever at home. He states that the red areas very warm to the touch. He states he is feeling fatigued, he denied chest pain shortness of breath, nausea, vomiting or diarrhea. Related Data Previous Rx's ?Medication ?Instructions ?Recorded albuterol sulfate 90 mcg/actuation 2 puff inhalation QID PRN 10/12/23 aerosol inhaler shortness of breath or wheezing #6.7 grams amoxicillin 500 mg capsule 500 mg PO TID 7 days #21 caps 10/12/23 ibuprofen 600 mg tablet 600 mg PO Q6H PRN pain #30 tabs 10/12/23 Allergies Allergy/AdvReac Type Severity Reaction Status Date / Time No Known Allergies Allergy Verified 02/03/24 00:50 [No Known Allergies*] Review of Systems 2 Review of Systems: Yes all other systems are reviewed and are negative PMFSH Past Medical History Medical History Asthma Social History Social History Unable to assess alcohol history related to: Refusing to respond Patient Tobacco Use Status: Current everyday Tobacco user Substance Use Type: Crack/Cocaine and Marijuana Advance Directives: No Advance Directives Information Provided: No Physical Exam 2 Vital Signs: Vital Signs: Last Vital Signs Temp 99.2 F 02/03/24 02:05 Pulse 88 02/03/24 02:05 Resp 18 02/03/24 02:05 BP 115/71 02/03/24 02:05 Pulse Ox 97 02/03/24 02:05 O2 Del Method Room Air 02/03/24 02:05 BMI result Body Mass Index 21.1 Vital signs were no Exam: General: Awake, alert in no distress Head: Normocephalic, atraumatic EENT: PERRL, Lids normal, sclera normal, conjunctiva normal, nose normal , ears normal, throat without erythema or exudates Neck: Supple, no adenopathy Lung: breath sounds symmetric, no wheezing, rales or rhonchi Chest: symmetric movement, nontender Heart: regular rate and rhythm, normal S1, S2 no murmurs or rubs Abdomen: soft, non-tender, nondistended, normal bowel sounds Back: no vertebral tenderness, no CVAT Extremities: Right lateral thigh has a large area of erythema measuring approximately 10 cm, the area is firm but there is central flocculence. The erythema is warm to the touch. He has other small lesions on both legs which she states are due to him picking his skin Neuro: Awake, alert, oriented, normal speech, moves all extremities symmetrically Psych: Pleasant, cooperative Medical Decision Making Medical Decision Making MDM Narrative: 38-year-old male with a history of asthma he smokes cocaine and crack corneal in 5-10 times a day, used prior to coming to the emergency department who presents emergency department for evaluation of right lateral thigh redness, swelling and pain. He states that it started out as a small red dot that has grown to a large area of redness that has warm to the touch in his very painful to the touch. Patient states that the wound was draining white pus. He states that he had a fever at home, he felt fatigued had no other concerning symptoms. Vital signs were normal. Exam was significant for a large area of erythema to his right thigh which was firm but also had a central area of flocculence. Differential diagnosis: ?Includes but is not limited to abscess, indurated cellulitis, electrolyte abnormalities, anemia Following was ordered: CBC, CMP, CRP, ESR, blood cultures x2, lactic acid, wound culture. Patient was treated with the following: Zosyn 4.5 g IV, normal saline x1 L, patient does not want pain medications at this time Course: 03:30 My independent interpretation patient's laboratory evaluation as follows: Elevated WBC 99162 with a left shift 84 neutrophils 7 lymphocytes.. Normocytic anemia with an H&H of 12 and 36.6. I did incise and drain the abscess and only a small amount of purulent material (less than 10 cc) was expressed from the incision. I did open up the incision site and more deeply explored the wound with hemostats and was not able to get more purulent material out of the wound. The patient most likely has an indurated cellulitis. The wound was packed patient was ordered to get Zosyn 4.5 g IV and vancomycin 1750 mg IV Patient does not want pain medications at this time. I will obtain a CT scan of the soft tissue your around the femur to see if there is a deeper abscess that I was unable to access through my incision. I did discuss admission admission with the covering hospitalist, . Admission/Observation Consideration of admission/observation: Escalation of care including admission/observation considered Lab Data MDM Lab Attestation statement: I reviewed the patient's lab results. 02/03/24 01:13 02/03/24 01:13 Labs: Lab Results 02/03/24 Range/Units 01:13 WBC 17.6 H (4.8-10.8) X10*3/uL RBC 3.99 L (4.60-5.80) X10*6/uL Hgb 12.6 L (14.0-18.0) g/dl Hct 36.6 L (42.0-52.0) % MCV 91.7 (80.0-98.0) fL MCH 31.6 (27.0-33.0) pg MCHC 34.4 (31.0-36.0) g/dl RDW 13.0 (11.0-16.0) % Plt Count 376 (160-400) X10*3/uL MPV 8.2 L (9.4-12.4) fL Immature Gran % (Auto) 0.5 H (0.0-0.4) % Neut % (Auto) 84.0 H (45-73) % Lymph % (Auto) 7.9 L (20-40) % [place] % (Auto) 7.0 (2-11) % Eos % (Auto) 0.3 (0-4) % Baso % (Auto) 0.3 (0-2) % Lymph # (Auto) 1.4 (1.2-4.9) X10*3/uL [place] # (Auto) 1.2 (0.1-1.2) X10*3/uL Eos # (Auto) 0.1 (0.0-0.4) X10*3/uL Baso # (Auto) 0.1 (0.0-0.2) X10*3/uL Abs Immat Gran (auto) 0.09 H (0.00-0.03) X10*3/uL Absolute Neuts (auto) 14.8 H (2.0-8.3) x10*3/uL Absolute Nucleated RBC 0.000 (0.0-0.012) X10*3/uL Nucleated RBC % (auto) 0.0 (0.0-0.2) /100WBC Sodium 137 (135-145) mmol/L Potassium 3.9 (3.3-5.1) mmol/L Chloride 98 (96-108) mmol/L Carbon Dioxide 29 (22-29) mmol/L Anion Gap 14 (12-20) BUN 10 (9-16) mg/dL Creatinine 0.75 (0.5-1.4) mg/dL Estim Creat Clear Calc 138.4 Estimated GFR > 60 Random Glucose 101 (60-115) mg/dL Calcium 9.7 D (8.4-10.2) mg/dL Total Bilirubin 0.2 (0.0-1.0) mg/dL AST 18 (5-37) U/L ALT 13 (0-40) U/L Alkaline Phosphatase 72 (39-117) U/L Total Protein 7.5 (6.5-8.0) g/dL Albumin 4.0 (3.5-5.0) g/dL Chronic Conditions Patient?s care impacted by: Other (Polysubstance use disorder (cocaine and fentanyl-smokes it)) Procedures Abscess I/D Site: lower extremity (Right lateral thigh) Side (if applicable): right Local Anesthetic: lidocaine 1% Amount of anesthesia used (mL): 10 Technique: incised with blade Amount of fluid expressed (mL): 10 Sent for culture/gram staining?: Yes Irrigation: No Packing used?: plain Discharge Plan Discharge Prescriptions: No Action amoxicillin 500 mg capsule 500 mg PO TID 7 Days Qty: 21 0RF ibuprofen 600 mg tablet 600 mg PO Q6H PRN (Reason: pain) Qty: 30 0RF albuterol sulfate 90 mcg/actuation HFA aerosol inhaler 2 puff inhalation QID PRN (Reason: shortness of breath or wheezing) Qty: 6.7 0RF Print Language: Sudanese
--- NOTE | 2024-02-03 03:40 | MHC.EDTECH ---
wound to right to right upper thigh dressed with non adherent telfa and wrapped. Patient tolerated procedure well.
[2024-02-03 03:43] LABS: C Reactive Protein 8.24 mg/dL (< or = 0.50)
[2024-02-03] MEDS: iohexoL 350 MG/ML 100 ML INFUS..BTL 85 ML IV (04:00)
[2024-02-03 04:02] LABS: Erythrocyte Sedimentation Rate 27 MM/HR (0-15)
[2024-02-03] MEDS: Lidocaine HCl 1 % MPF 5 ML VIAL INFILTRATI ×4 (04:04)
[2024-02-03] MEDS: 0.9 % Sodium Chloride 1,000 ML 999 ML IV (04:05)
[2024-02-03] MEDS: vancomycin HCL 1,000 MG, vancomycin HCL 750 MG in 0.9 % Sodium Chloride 500 ML 267.5 MG IV (04:05)
--- NOTE | 2024-02-03 04:14 | P.HPHOSP_ITS ---
History of Present Illness Date of Service: 02/03/24 Chief Complaint: thigh infection This is a 38-year-old male with pertinent history of mild intermittent asthma not on home oxygen, Polysubstance use disorder who presents to the emergency department for concerns of right thigh infection. Patient states this has been ongoing for a while. Initially he noticed red spot on his right upper thigh with subsequently became larger. It is associated with warmth and is painful to touch. Patient has difficulty walking and hence presented to the ER on the day of presentation. He denies history of skin infections in the past. Endorses generalized malaise and fatigability. Patient does endorse that he picks at his skin. Smoked fentanyl mixed with crack cocaine on the day of presentation. No fever, chills, chest discomfort, palpitations, shortness of breath, abdominal pain, changes in urinary or bowel habits. In the emergency department, patient was found to be septic. Right thigh abscess drained by ER provider with foul-smelling purulent drainage Review of Systems 2 Constitutional: Constitutional: Reports malaise and Reports weakness ENT: Reports system reviewed and no additional complaints, except as documented Cardiovascular: Cardiovascular: Reports no additional cardiovascular complaints Respiratory: Respiratory: Reports no additional respiratory complaints Gastrointestinal: Gastrointestinal: Reports no additional gastrointestinal complaints Genitourinary: Genitourinary: Reports no additional male genitourinary complaints Neurologic: Reports weakness PMFSH Medical History Asthma Pertinent family history: No family history of early CAD Social History Unable to assess alcohol history related to: Refusing to respond Patient Tobacco Use Status: Current everyday Tobacco user Substance Use Type: Crack/Cocaine and Marijuana Advance Directives: No Advance Directives Information Provided: No Meds Allergies Allergy/AdvReac Type Severity Reaction Status Date / Time No Known Allergies Allergy Verified 02/03/24 00:50 [No Known Allergies*] Active Medications: Current Medications Sodium Chloride (Ns) 1,000 mls @ 999 mls/hr IV .Q1H1M STA Stop: 02/03/24 04:22 Last Admin: 02/03/24 04:05 Dose: 999 mls/hr Vancomycin HCl 1,000 mg/Vancomycin HCl 750 mg/ Sodium Chloride 535 mls @ 267.5 mls/hr IV ONCE ONE Stop: 02/03/24 05:37 Last Admin: 02/03/24 04:05 Dose: 267.5 mls/hr Physical Exam 2 Vital Signs and Narrative: Vital Signs: Last Vital Signs Temp 100.7 F H 02/03/24 04:00 Pulse 77 02/03/24 04:00 Resp 18 02/03/24 04:00 BP 129/83 02/03/24 04:00 Pulse Ox 99 02/03/24 04:00 O2 Del Method Room Air 02/03/24 04:00 BMI result Body Mass Index 21.1 Middle-aged male lying in bed in no distress Neck supple, no JVD Regular rate and rhythm, S1-S2 heard Regular breath sounds bilaterally, no wheezing or crackles appreciated Abdomen soft nontender, no guarding, no rigidity Patient is awake, alert and oriented to self, place, time and person ; no focal motor deficit Psych: Normal mood Right upper thigh with erythema, warmth, tenderness and fluctuance as pictured below Skin: Other: Results Labs 02/03/24 01:13 02/03/24 01:13 Labs: Laboratory Results - last 24 hr 02/03/24 01:13 MCV 91.7 MCH 31.6 MCHC 34.4 RDW 13.0 Plt Count 376 MPV 8.2 L Immature Gran % (Auto) 0.5 H Neut % (Auto) 84.0 H Lymph % (Auto) 7.9 L [place] % (Auto) 7.0 Eos % (Auto) 0.3 Baso % (Auto) 0.3 Lymph # (Auto) 1.4 [place] # (Auto) 1.2 Eos # (Auto) 0.1 Baso # (Auto) 0.1 Abs Immat Gran (auto) 0.09 H Absolute Neuts (auto) 14.8 H Absolute Nucleated RBC 0.000 Nucleated RBC % (auto) 0.0 ESR 27 H Anion Gap 14 Estim Creat Clear Calc 138.4 Estimated GFR > 60 Random Glucose 101 Calcium 9.7 D Total Bilirubin 0.2 AST 18 ALT 13 Alkaline Phosphatase 72 C-Reactive Protein 8.24 H Total Protein 7.5 Albumin 4.0 Assessment and Plan (1) Cellulitis of right thigh: Status: Acute (2) Abscess of right thigh: Status: Acute Plan This is a 38-year-old male with pertinent history of mild intermittent asthma not on home oxygen, Polysubstance use disorder who presents to the emergency department for concerns of right thigh infection. #. Sepsis due to right thigh abscess with cellulitis: Resuscitated with IV crystalloids. Initiating IV antibiotics. Lactic acid and blood culture obtained. Abscess was drained by ER provider and culture sent. CT pending to look for underlying abscess #. Mild intermittent asthma: Not on oxygen. No exacerbation during admission. Continue home inhaler #. Polysubstance use disorder: Monitor for withdrawal. Addiction Team consulted. COWS q shift DVT prophylaxis: Lovenox Full code Admit as inpatient and will require two night minimum hospital stay for IV antibiotics (as above), which is not possible in a lesser acute setting. Quality Stroke Does the patient have a stroke diagnosis?: No VTE Prior VTE?: No VTE Risk Level:: Medical - moderate - high VTE Device Contraindication: Treatment Not Indicated VTE Drug Contraindication: N/A - Med Ordered
[2024-02-03] MEDS: Enoxaparin Sodium 40 MG/0.4 ML SYRINGE SUBCUT (05:13)
[2024-02-03] MEDS: Acetaminophen 325 MG TABLET 650 MG PO ×2 (05:14→11:57)
--- NOTE | 2024-02-03 05:30 | PC.NURSE ---
abx delayed, awaiting pharmacy verification
--- NOTE | 2024-02-03 06:12 | PC.NURSE ---
med rec completed, pt reports he does not take any of the meds he is prescribed
[2024-02-03 06:19] LABS: Basophils Percent Auto 0.2 % (0-2); Eosinophils Absolute Auto 0.1 X10*3/uL (0.0-0.4); Eosinophils Percent Auto 0.4 % (0-4); Hematocrit 32.7 % (42.0-52.0); Hemoglobin 11.3 g/dl (14.0-18.0); Imm Gran Abs Auto 0.18 X10*3/uL (0.00-0.03); Imm Gran Pct Auto 1.1 % (0.0-0.4); Lymphocytes Absolute Auto 2.5 X10*3/uL (1.2-4.9); Lymphocytes Percent Auto 14.7 % (20-40); MANUAL DIFF FLAG SCAN; Mean Corpuscular HGB Conc 34.6 g/dl (31.0-36.0); Mean Corpuscular Hemoglobin 32.2 pg (27.0-33.0); Mean Corpuscular Volume 93.2 fL (80.0-98.0); Mean Platelet Volume 8.5 fL (9.4-12.4); Monocytes Absolute Auto 1.9 X10*3/uL (0.1-1.2); Monocytes Percent Auto 11.2 % (2-11); Neutrophils Absolute Auto 12.3 x10*3/uL (2.0-8.3); Neutrophils Percent Auto 72.4 % (45-73); Platelet Count 355 X10*3/uL (160-400); Red Blood Count 3.51 X10*6/uL (4.60-5.80); SCAN SMEAR FLAG 1
[2024-02-03 06:20] LABS: Anion Gap 8 (12-20); Blood Urea Nitrogen 7 mg/dL (9-16); Calcium 8.6 mg/dL (8.4-10.2); Carbon Dioxide 30 mmol/L (22-29); Chloride 102 mmol/L (96-108); Creatinine Clr Calc Pharmacy 142.2; Estimated Glomerular Filt Rate > 60; Glucose Random 124 mg/dL (60-115); Potassium 3.5 mmol/L (3.3-5.1); Sodium 136 mmol/L (135-145)
[2024-02-03 06:20] LABS: Amphetamine Screen Urine Not Detected (Not Detect); Barbiturates, Urine Not Detected (Not Detect); Benzodiazepines Screen Urine Not Detected (Not Detect); Buprenorphine Scr Not Detected (Not Detect); Cannabinoid Screen Urine POSITIVE (Not Detect); Cocaine Screen Urine POSITIVE (Not Detect); Fentanyl, urine POSITIVE (Not Detect); Methadone Screen, Urine Not Detected (Not Detect); Opiate Screen Urine POSITIVE (Not Detect); Oxycodone Screen Urine Not Detected (Not Detect); Phencyclidine Screen Urine Not Detected (Not Detect)
[2024-02-03] MEDS: Piperacillin Sodium/Tazobactam 4.5 GM in 0.9 % Sodium Chloride 100 ML IV ×4 (06:29→22:57)
[2024-02-03 07:04] LABS: Lactic Acid 0.7 mmol/L (0.5-2.0)
[2024-02-03 07:15] LABS: SLIDE REVIEW VERIFIED
--- NOTE | 2024-02-03 07:37 | PHA.PROG ---
Admission Date/Time: February 03, 2024 04:12 Indication: SEPSIS Weight in k.575 kg Adjusted body weight in K.97 Salol body weight in K.9 Obesity Dosing Indication % IBW: 21.1 Serum Creatinine - Last 168 Hours 02/03/24 02/03/24 01:13 06:00 Creatinine 0.75 0.73 Estimated CrCl and GFR - Last 168 Hours 02/03/24 02/03/24 01:13 06:00 Estim Creat Clear Calc 138.4 142.2 Estimated GFR > 60 > 60 Vancomycin Loading Dose: 1750 MG Current Vancomycin Dosing Regimen: 1250 MG Q12H Vancomycin Monitoring using AUC goal of 400 - 600 range with trough as surrogate marker:AUC 549 TROUGH 16.3 Date and Time for next Vancomycin Level to be drawn: 02/03 @1400 Pharmacist Comments on Vancomycin Plan: Vancomycin dosing will take advantage of [employer] as a clinical decision support tool that uses Bayesian modeling to calculate individual patient's pharmacokinetic parameters and forecast the patient's drug concentration time course with the target goal AUC 24 range of 400 - 600 mg/L/hr.
--- NOTE | 2024-02-03 09:23 | HO.PM.IMPN ---
Subjective Subjective Date of Service: 02/03/24 Interval History: feeling withdrawal Physical Exam Vital Signs: Vital Signs: Last Vital Signs Temp 99.4 F 02/03/24 08:15 Pulse 89 02/03/24 06:08 Resp 18 02/03/24 06:08 BP 112/74 02/03/24 06:08 Pulse Ox 97 02/03/24 06:08 O2 Del Method Room Air 02/03/24 06:08 BMI result Body Mass Index 21.1 General: AO X 3, diaphoretic Resp: CTA bilateral, no accessory muscles used CVS: S1,S2,RRR GI: soft, non tender, non distended Neuro: motor grossly intact, alert Psych: appropriate affect, appropriate insight skin: erytehma, bascess right thigh Objective Data Active Medications Acetaminophen (Acetaminophen 325 Mg Tablet) 650 mg PO Q6H PRN PRN Reason: Pain, Mild (Pain Scale 1-3) Last Admin: 02/03/24 05:14 Dose: 650 mg Documented By: LUCY Enoxaparin Sodium (Enoxaparin Sodium 40 Mg/0.4 Ml Syringe) 40 mg SUBCUT Q24H [facility] Last Admin: 02/03/24 05:13 Dose: 40 mg Documented By: LUCY Piperacillin Sod/Tazobactam (Sod 4.5 gm/ Sodium Chloride) 100 mls @ 200 mls/hr IV Q6H [facility] Last Infusion: 02/03/24 08:33 Dose: Infused Documented By: ALBERTO Vancomycin HCl 1,250 mg/ (Sodium Chloride) 250 mls @ 166.667 mls/hr IV Q12H [facility] Melatonin (Melatonin 3 Mg Tablet) 6 mg PO BEDTIME PRN PRN Reason: Insomnia Ondansetron HCl (Ondansetron Hcl 4 Mg/2 Ml Vial) 4 mg IVPUSH Q8H PRN PRN Reason: Nausea and Vomiting Pharmacy Consult (Consult Rx Vancomycin Dosing) 1 each MISCELLANE DAILY PRN PRN Reason: Consult order Sodium Chloride (0.9 % Sodium Chloride Flush 3 Ml Syringe) 3 ml IVFLUSH QSHIFT [facility] Labs 02/03/24 06:00 02/03/24 06:00 Labs: Laboratory Results - last 24 hr 02/03/24 02/03/24 02/03/24 01:13 05:58 06:00 MCV 91.7 93.2 MCH 31.6 32.2 MCHC 34.4 34.6 RDW 13.0 13.0 Plt Count 376 355 MPV 8.2 L 8.5 L Immature Gran % (Auto) 0.5 H 1.1 H Neut % (Auto) 84.0 H 72.4 Lymph % (Auto) 7.9 L 14.7 L [place] % (Auto) 7.0 11.2 H Eos % (Auto) 0.3 0.4 Baso % (Auto) 0.3 0.2 Lymph # (Auto) 1.4 2.5 [place] # (Auto) 1.2 1.9 H Eos # (Auto) 0.1 0.1 Baso # (Auto) 0.1 0.0 Abs Immat Gran (auto) 0.09 H 0.18 H Absolute Neuts (auto) 14.8 H 12.3 H Absolute Nucleated RBC 0.000 0.000 Nucleated RBC % (auto) 0.0 0.0 Smear Tech's Comments VERIFIED ESR 27 H Anion Gap 14 8 L Estim Creat Clear Calc 138.4 142.2 Estimated GFR > 60 > 60 Random Glucose 101 124 H Lactic Acid Calcium 9.7 D 8.6 D Total Bilirubin 0.2 AST 18 ALT 13 Alkaline Phosphatase 72 C-Reactive Protein 8.24 H Total Protein 7.5 Albumin 4.0 Urine Opiates Screen POSITIVE H Ur Buprenorphine Scrn Not Detected Ur Oxycodone Screen Not Detected Urine Methadone Screen Not Detected Urine Fentanyl Screen POSITIVE H Ur Barbiturates Screen Not Detected Ur Phencyclidine Scrn Not Detected Ur Amphetamines Screen Not Detected U Benzodiazepines Scrn Not Detected Urine Cocaine Screen POSITIVE H U Marijuana (THC) Screen POSITIVE H 02/03/24 06:31 MCV MCH MCHC RDW Plt Count MPV Immature Gran % (Auto) Neut % (Auto) Lymph % (Auto) [place] % (Auto) Eos % (Auto) Baso % (Auto) Lymph # (Auto) [place] # (Auto) Eos # (Auto) Baso # (Auto) Abs Immat Gran (auto) Absolute Neuts (auto) Absolute Nucleated RBC Nucleated RBC % (auto) Smear Tech's Comments ESR Anion Gap Estim Creat Clear Calc Estimated GFR Random Glucose Lactic Acid 0.7 Calcium Total Bilirubin AST ALT Alkaline Phosphatase C-Reactive Protein Total Protein Albumin Urine Opiates Screen Ur Buprenorphine Scrn Ur Oxycodone Screen Urine Methadone Screen Urine Fentanyl Screen Ur Barbiturates Screen Ur Phencyclidine Scrn Ur Amphetamines Screen U Benzodiazepines Scrn Urine Cocaine Screen U Marijuana (THC) Screen Microbiology Microbiology Results: Microbiology 02/03/24 Unknown Gram Stain - Final Leg Right Assessment and Plan (1) Cellulitis of right thigh: Status: Acute Plan 38M PMH mild intermittent asthma, polysubstance use disorder presented with fevers, erythema and pain of the right thigh Sepsis due to right thigh abscess and cellulitis Continue IV vancomycin and Zosyn, follow-up cultures Polysubstance dependence with withdrawal Addiction team eval Mild intermittent asthma P.r.n. bronchodilators DVT prophylaxis with Lovenox Full Code Reason for continued hospitalization: Awaiting cultures Quality Stroke Does the patient have a stroke diagnosis?: No VTE Prior VTE?: No VTE Risk Level:: Medical - moderate - high VTE Device Contraindication: Treatment Not Indicated VTE Drug Contraindication: N/A - Med Ordered
[2024-02-03] MEDS: 0.9 % Sodium Chloride Flush 3 ML SYRINGE IVFLUSH ×3 (09:36→22:57)
--- NOTE | 2024-02-03 10:19 | PHA.MEDREC ---
Pharmacy Consult ? Medication Reconciliation Pharmacy has completed the medication reconciliation. Tried to talk to patient but he kept falling asleep while talking so used pharmacy claims for med rec (Dr. Johnson was made aware of this).
[2024-02-03] MEDS: Ibuprofen 400 MG TABLET PO (11:57)
[2024-02-03] MEDS: vancomycin HCL 1,250 MG in 0.9 % Sodium Chloride 250 ML 166.67 MG IV (15:23)
[2024-02-03] MEDS: buPROPion HCl XL 150 MG TAB.ER.24H PO (16:37)
[2024-02-03] MEDS: methADONE HCl 20 MG/2 ML ORAL.CONC 10 MG PO (16:37)
[2024-02-03] MEDS: Nicotine 21 MG PATCH.TD24 TRANSDERMA (16:37)
[2024-02-03] MEDS: hydrOXYzine HCL 50 MG TABLET 100 MG PO (20:54)
[2024-02-03] MEDS: cloNIDine HCL 0.1 MG TABLET PO (20:57)
[2024-02-04] VITALS (11 sets, daily range): BP systolic 100–125; BP diastolic 55–81; PULSE 54–64; RESP 18; TEMP 36.4–37.4; O2SAT 98–99
[2024-02-04] MEDS: Acetaminophen 325 MG TABLET 650 MG PO ×3 (02:58→15:36)
[2024-02-04] MEDS: vancomycin HCL 1,250 MG in 0.9 % Sodium Chloride 250 ML 166.67 MG IV (03:59)
--- NOTE | 2024-02-04 05:16 | PC.NURSE ---
MESSAGE RECEIVED FROM MEDICAL ADMINISTRATIVE ASSISTANT THAT PATIENT HAD A PRELIMINARY BLOOD CULTURE RESULT OF ONE OUT OF TWO SETS GRAM + COCCI IN CLUSTERS. HOSPITALIST ON DUTY WAS SENT A NOTE TO VERIFY THAT HE ALSO RECEIVED MESSAGE AND TO LET HIM KNOW PATIENT ALREADY ON ZOSYN AND VANCOMYCIN. HOSPITALIST DID RESPOND OKAY TO HAVING READ BOTH. WILL CONTINUE TO MONITOR PATIENT ALSO DECLINED HIS SCHEDULED LOVENOX INJECTION AND ALERTED TO THAT TOO.
[2024-02-04] MEDS: Piperacillin Sodium/Tazobactam 4.5 GM in 0.9 % Sodium Chloride 100 ML IV (05:34)
[2024-02-04 06:14] LABS: Hematocrit 35.9 % (42.0-52.0); Hemoglobin 12.2 g/dl (14.0-18.0); Mean Corpuscular Hemoglobin 32.3 pg (27.0-33.0); Mean Platelet Volume 8.5 fL (9.4-12.4); Platelet Count 390 X10*3/uL (160-400); Red Blood Count 3.78 X10*6/uL (4.60-5.80); Red Cell Distribution Width 13.3 % (11.0-16.0); White Blood Count 11.9 X10*3/uL (4.8-10.8)
[2024-02-04 06:28] LABS: Anion Gap 11 (12-20); Blood Urea Nitrogen 8 mg/dL (9-16); Calcium 9.4 mg/dL (8.4-10.2); Carbon Dioxide 30 mmol/L (22-29); Chloride 105 mmol/L (96-108); Creatinine Clr Calc Pharmacy 119.3; Estimated Glomerular Filt Rate > 60; Glucose Fasting 108 mg/dL (60-99); Potassium 4.7 mmol/L (3.3-5.1); Sodium 141 mmol/L (135-145)
--- NOTE | 2024-02-04 07:00 | CA_ITS ---
Transthoracic Echocardiogram Patient (Last, First, Middle): Maurice Cabrera, Gender: Male Date of : 1985 Age: 38 Procedure Date: 02/04/2024 Procedure Type: Transthoracic Echocardiogram Location: S3E Height: 185.42 cm Weight: 72.58 kg BSA: 1.96 m2 Heart Rate: 54 bpm BP: 120 / 57 mmHg Salt Lifter: SB Referring MD: Rosalio Johnson MD Symptoms: staph bacteremia Study Quality: Adequate ECG Rhythm: Bradycardia Conclusions: - The left ventricular systolic function is normal. The calculated ejection fraction is 61% by biplane method. - No obvious valvular pathology seen on this study. - There is mild dilatation of the ascending aorta measuring 3.60 cm. - Long, linear structure in sinus of valsalva (1.1cm), possibly aortic plaque. Findings Left Ventricle Mildly increased left ventricular cavity size. There is normal left ventricular wall thickness. The left ventricular systolic function is normal. The calculated ejection fraction is 61% by biplane method. There is no evidence of regional wall motion abnormalities. Diastolic function is normal for age. Right Ventricle Mildly increased right ventricular cavity size. There is normal right ventricular systolic function. Atria Mild biatrial enlargement. Aortic Valve There is a normal trileaflet aortic valve. There is no aortic valve stenosis. There is no aortic valve regurgitation. Mitral Valve The mitral valve appears normal. There is trace mitral valve regurgitation. There is no mitral valve stenosis. Pulmonic Valve There is trace pulmonic valve regurgitation. Tricuspid Valve Normal tricuspid valve structure. There is mild tricuspid valve regurgitation. There is no evidence of pulmonary hypertension. Great Vessels The aortic arch is normal in size. There is mild dilatation of the ascending aorta measuring 3.60 cm. Long, linear structure in sinus of valsalva (1.1cm), possibly aortic plaque. Venous The inferior vena cava is normal in size and collapses greater than 50% with inspiration. Pericardium/Pleural There is no evidence of pericardial effusion. Prior Study Comparison No prior study available for comparison. Recommendations, Care & Conclusions No obvious valvular pathology seen on this study. Measurements 2D Linear Measurements IVSd: 0.80 0.6-0.9/0.6-1.0 cm LVIDd: 5.70 3.9-5.3/4.2-5.9 cm LVIDd Index: 2.91 2.4-3.2/2.2-3.1 cm/m2 LVIDs: 3.52 2.0-3.6 cm LVPWd: 0.83 0.7-1.1 cm LA Diam: 4.00 2.7-3.8/3.0-4.0 cm LAIDs Index: 2.04 1.5-2.3 cm/m2 LV Mass: 216.99 67-162/88-224 g LV Mass Index: 110.71 43-95/49-115 g/m2 LVOT Diam: 2.60 3.0+(-)1.3 cm 2D Systolic Function EF 4C: 59.90 >55% EF 2C: 63.60 >55% EF BiP: 61.40 >55% Mitral Valve MV Pk E: 0.79 MV PK A: 0.40 MV Decel Time: 227.00 E/A: 2.00 E'Lateral: 14.40 E'Medial: 11.00 E/E' Med: 7.20 E/E' Lat: 5.50 PHT: 66.00 MVA PHT: 3.33 Decel [place]: 3.48 Aortic Valve AoV Pk Pato: 1.33 AoV Pk Grad: 7.00 BRIAN: 4.84 LVOT LVOT Pk Pato: 1.21 LVOT Mn Pato: 0.82 LVOT VTI: 0.22 LVOT Pk Grad: 6.00 LVOT Mn Grad: 3.00 LVOT Diam: 2.60 LVOT Area: 5.31 Diastolic Function MV Pk E: 0.79 MV Pk A: 0.40 E/A: 2.00 E'Medial: 11.00 E/E' Med: 7.20 E' Laterial: 14.40 E/E' Lat: 5.50 Right Ventricle TAPSE (mm): 26.30 TVS' Pato: 17.30 Tricuspid Valve TR Pk Pato: 2.18 TR Pk Grad: 19.00 RA Press: 3.00 RVSP: 22.00 Great Vessels Aorta Sinus of Valsalva: 3.20 2.0-3.5 cm Ao Asc: 3.60 2.1-3.4 cm Ao Arch: 2.90 Ao Desc: 1.70 Pulmonary Veins Pulm Vein S/D 0.90 Pulmonary Valve PV Pk Pato: 0.96 Peak PV Grad: 4.00 Updated in Other Vendor System with Status of Final Perico Wilburn MD electronically signed on 02/05/2024 10:39:27 AM with status of Final
[2024-02-04] MEDS: buPROPion HCl XL 150 MG TAB.ER.24H PO (08:50)
[2024-02-04] MEDS: cloNIDine HCL 0.1 MG TABLET PO ×2 (08:50→20:55)
[2024-02-04] MEDS: Nicotine 21 MG PATCH.TD24 TRANSDERMA (08:50)
[2024-02-04] MEDS: 0.9 % Sodium Chloride Flush 3 ML SYRINGE IVFLUSH ×3 (08:53→20:57)
--- NOTE | 2024-02-04 09:10 | HO.PM.IMPN ---
Subjective Subjective Date of Service: 02/04/24 Interval History: withdrawal symptoms Physical Exam Vital Signs: Vital Signs: Last Vital Signs Temp 97.5 F 02/04/24 07:30 Pulse 63 02/04/24 07:30 Resp 18 02/04/24 07:30 BP 120/57 L 02/04/24 08:50 Pulse Ox 98 02/04/24 07:30 O2 Del Method Room Air 02/04/24 07:30 BMI result Body Mass Index 21.1 General: AO X 3, no acute distress Resp: CTA bilateral, no accessory muscles used CVS: S1,S2,RRR GI: soft, non tender, non distended Neuro: motor grossly intact, alert Psych: appropriate affect, appropriate insight skin: erytehma, bascess right thigh Objective Data Active Medications Acetaminophen (Acetaminophen 325 Mg Tablet) 650 mg PO Q6H PRN PRN Reason: Pain, Mild (Pain Scale 1-3) Last Admin: 02/04/24 08:53 Dose: 650 mg Documented By: SARBJIT Albuterol Sulfate (Albuterol Sulfate 90 Mcg 8 Gm Inhaler) 2 puff INHALE QID PRN PRN Reason: wheezing Bupropion HCl (Bupropion Hcl Xl 150 Mg Tab.Er.24h) 150 mg PO DAILY [facility] Last Admin: 02/04/24 08:50 Dose: 150 mg Documented By: SARBJIT Clonidine HCl (Clonidine Hcl 0.1 Mg Tablet) 0.1 mg PO BID [facility]; Protocol Last Admin: 02/04/24 08:50 Dose: 0.1 mg Documented By: SARBJIT Enoxaparin Sodium (Enoxaparin Sodium 40 Mg/0.4 Ml Syringe) 40 mg SUBCUT Q24H [facility] Last Admin: 02/04/24 04:02 Dose: Not Given Documented By: KENTON Non-Admin Reason: Patient Refused Hydroxyzine HCl (Hydroxyzine Hcl 50 Mg Tablet) 100 mg PO BEDTIME [facility] Last Admin: 02/03/24 20:54 Dose: 100 mg Documented By: KENTON Vancomycin HCl 1,250 mg/ (Sodium Chloride) 250 mls @ 166.667 mls/hr IV Q12H [facility] Last Infusion: 02/04/24 05:29 Dose: Infused Documented By: KENTON Melatonin (Melatonin 3 Mg Tablet) 6 mg PO BEDTIME PRN PRN Reason: Insomnia Nicotine (Nicotine 21 Mg Patch.Td24) 21 mg TRANSDERMA DAILY [facility] Last Admin: 02/04/24 08:50 Dose: 21 mg Documented By: SARBJIT Ondansetron HCl (Ondansetron Hcl 4 Mg/2 Ml Vial) 4 mg IVPUSH Q8H PRN PRN Reason: Nausea and Vomiting Pharmacy Consult (Consult Rx Vancomycin Dosing) 1 each MISCELLANE DAILY PRN PRN Reason: Consult order Sodium Chloride (0.9 % Sodium Chloride Flush 3 Ml Syringe) 3 ml IVFLUSH QSHIFT [facility] Last Admin: 02/04/24 08:53 Dose: 3 ml Documented By: SARBJIT Labs 02/04/24 05:48 02/04/24 05:48 Labs: Laboratory Results - last 24 hr 02/04/24 05:48 MCV 95.0 MCH 32.3 MCHC 34.0 RDW 13.3 Plt Count 390 MPV 8.5 L Absolute Nucleated RBC 0.000 Nucleated RBC % (auto) 0.0 Anion Gap 11 L Estim Creat Clear Calc 119.3 Estimated GFR > 60 Fasting Glucose 108 H Calcium 9.4 D Microbiology Microbiology Results: Microbiology 02/03/24 Unknown Gram Stain - Final Leg Right Routine Culture - Preliminary Staphylococcus aureus 02/03/24 03:43 Blood Culture - Preliminary Blood - Venous Staphylococcus aureus 02/03/24 01:13 Blood Culture - Preliminary Blood - Venous No growth after 24 hours. Assessment and Plan (1) Cellulitis of right thigh: Status: Acute Plan 38M PMH mild intermittent asthma, polysubstance use disorder presented with fevers, erythema and pain of the right thigh Sepsis due to right thigh abscess and cellulitis complicated by staph aureus bacteremia Continue IV vancomycin Will DC Andriyn, follow-up cultures ID rebeca barker Polysubstance dependence with withdrawal Addiction team eval Mild intermittent asthma P.r.n. bronchodilators DVT prophylaxis with Lovenox Full Code Reason for continued hospitalization: Awaiting cultures Quality Stroke Does the patient have a stroke diagnosis?: No VTE Prior VTE?: No VTE Risk Level:: Medical - moderate - high VTE Device Contraindication: Treatment Not Indicated VTE Drug Contraindication: N/A - Med Ordered
[2024-02-04] MEDS: methADONE HCl 20 MG/2 ML ORAL.CONC 30 MG PO (09:38)
--- NOTE | 2024-02-04 10:16 | HO.ADDICTCON ---
History of Present Illness Date of Service: 02/04/24 Chief Complaint: thigh infection Reason for Consult: opiate use-withdrawal Sources of Information: patient interviewed and chart reviewed HPI Narrative: Patient is a 38 year old male currently medically admitted with abscess of the right thigh Consult requested as patient reported substance use at time of admission. Initially patient declined MOUD (methadone) but after some time and increase in withdrawal sx, he was open to it and received methadone 30mg with good effect. Seen in room 354, he was awake, alert, pleasant and engaged in interview. Reports that methadone made him feel so much better . Denies any withdrawal sx Substance use history: -starting using cocaine at age 17 -starting using opiates in July 2023 -smokes both cocaine and heroin daily--using 3-4 bags of heroin/fentanyl daily -reports history of alcohol use disorder, but has not had any alcohol in a long time -Denies any other substance use -Reports 6 lifetime overdoses -strong family history of addiction--father, and many siblings Treatment History -numerous admissions to various levels of substance use treatment -2 [place] commitments (which patient sought out for himself) February 2023 and November 2023 -reports he was started on vivitrol during most recent [place] 35 stay -no other medications trialed Review of Systems Constitutional: Reports as per HPI Diagnostics Vital Signs (24Hr): Vital Signs - 24 hr 02/03/24 15:08 02/03/24 19:33 02/03/24 20:57 Temperature 98.6 F 98.9 F Pulse Rate 68 58 Respiratory Rate 17 18 Blood Pressure 118/85 125/77 130/78 Pulse Oximetry 98 98 Oxygen Delivery Method Room Air Room Air 02/04/24 02:47 02/04/24 03:58 02/04/24 04:06 Temperature 99.3 F 98.5 F 98.5 F Pulse Rate 62 Respiratory Rate 18 18 Blood Pressure 100/55 L Pulse Oximetry 99 Oxygen Delivery Method Room Air 02/04/24 07:30 02/04/24 08:50 Temperature 97.5 F Pulse Rate 63 Respiratory Rate 18 Blood Pressure 115/71 120/57 L Pulse Oximetry 98 Oxygen Delivery Method Room Air BMI result Body Mass Index 21.1 Labs 02/04/24 05:48 02/04/24 05:48 Labs: Laboratory Results - last 48 hr 06/05/2002/03/24 02/03/24 01:13 05:58 06:00 WBC 17.6 H 17.0 H RBC 3.99 L 3.51 L Hgb 12.6 L 11.3 L Hct 36.6 L 32.7 L MCV 91.7 93.2 MCH 31.6 32.2 MCHC 34.4 34.6 RDW 13.0 13.0 Plt Count 376 355 MPV 8.2 L 8.5 L Immature Gran % (Auto) 0.5 H 1.1 H Neut % (Auto) 84.0 H 72.4 Lymph % (Auto) 7.9 L 14.7 L Esmeralda % (Auto) 7.0 11.2 H Eos % (Auto) 0.3 0.4 Baso % (Auto) 0.3 0.2 Lymph # (Auto) 1.4 2.5 Esmeralda # (Auto) 1.2 1.9 H Eos # (Auto) 0.1 0.1 Baso # (Auto) 0.1 0.0 Abs Immat Gran (auto) 0.09 H 0.18 H Absolute Neuts (auto) 14.8 H 12.3 H Absolute Nucleated RBC 0.000 0.000 Nucleated RBC % (auto) 0.0 0.0 Smear Tech's Comments VERIFIED ESR 27 H Sodium 137 136 Potassium 3.9 3.5 Chloride 98 102 Carbon Dioxide 29 30 H Anion Gap 14 8 L BUN 10 7 L Creatinine 0.75 0.73 Estim Creat Clear Calc 138.4 142.2 Estimated GFR > 60 > 60 Random Glucose 101 124 H Fasting Glucose Lactic Acid Calcium 9.7 D 8.6 D Total Bilirubin 0.2 AST 18 ALT 13 Alkaline Phosphatase 72 C-Reactive Protein 8.24 H Total Protein 7.5 Albumin 4.0 Urine Opiates Screen POSITIVE H Ur Buprenorphine Scrn Not Detected Ur Oxycodone Screen Not Detected Urine Methadone Screen Not Detected Urine Fentanyl Screen POSITIVE H Ur Barbiturates Screen Not Detected Ur Phencyclidine Scrn Not Detected Ur Amphetamines Screen Not Detected U Benzodiazepines Scrn Not Detected Urine Cocaine Screen POSITIVE H U Marijuana (THC) Screen POSITIVE H 02/03/24 02/04/24 06:31 05:48 WBC 11.9 H RBC 3.78 L Hgb 12.2 L Hct 35.9 L MCV 95.0 MCH 32.3 MCHC 34.0 RDW 13.3 Plt Count 390 MPV 8.5 L Immature Gran % (Auto) Neut % (Auto) Lymph % (Auto) Esmeralda % (Auto) Eos % (Auto) Baso % (Auto) Lymph # (Auto) Esmeralda # (Auto) Eos # (Auto) Baso # (Auto) Abs Immat Gran (auto) Absolute Neuts (auto) Absolute Nucleated RBC 0.000 Nucleated RBC % (auto) 0.0 Smear Tech's Comments ESR Sodium 141 Potassium 4.7 D Chloride 105 Carbon Dioxide 30 H Anion Gap 11 L BUN 8 L Creatinine 0.87 Estim Creat Clear Calc 119.3 Estimated GFR > 60 Random Glucose Fasting Glucose 108 H Lactic Acid 0.7 Calcium 9.4 D Total Bilirubin AST ALT Alkaline Phosphatase C-Reactive Protein Total Protein Albumin Urine Opiates Screen Ur Buprenorphine Scrn Ur Oxycodone Screen Urine Methadone Screen Urine Fentanyl Screen Ur Barbiturates Screen Ur Phencyclidine Scrn Ur Amphetamines Screen U Benzodiazepines Scrn Urine Cocaine Screen U Marijuana (THC) Screen Imaging Radiology Impressions: ITS Impressions Femur CT 02/03/24 04:07 IMPRESSION: 1. Marked skin thickening and subjacent subcutaneous fat stranding of the right anterolateral proximal thigh, in keeping with the provided history of skin/soft tissue infection. No discrete, rim-enhancing fluid collection identified or evidence of extension into the thigh musculature/osseous involvement. 2. Small, 2 cm focus of subcutaneous packing material centered near the location of greatest skin thickening, likely correlates to location of recent drainage. 3. Mildly enlarged right inguinal lymph nodes, likely reactive. Mental Status Exam Mental Status Exam Patient Appearance: Appropriate Level of Consciousness: Awake, Appropriate and Alert Patient Behavior: Talkative and Cooperative Mood Description: Calm Affect Description: Calm Judgement: Fair Medications Medications Current Medications Acetaminophen (Acetaminophen 325 Mg Tablet) 650 mg PO Q6H PRN PRN Reason: Pain, Mild (Pain Scale 1-3) Last Admin: 02/04/24 08:53 Dose: 650 mg Albuterol Sulfate (Albuterol Sulfate 90 Mcg 8 Gm Inhaler) 2 puff INHALE QID PRN PRN Reason: wheezing Bupropion HCl (Bupropion Hcl Xl 150 Mg Tab.Er.24h) 150 mg PO DAILY [facility] Last Admin: 02/04/24 08:50 Dose: 150 mg Clonidine HCl (Clonidine Hcl 0.1 Mg Tablet) 0.1 mg PO BID [facility]; Protocol Last Admin: 02/04/24 08:50 Dose: 0.1 mg Enoxaparin Sodium (Enoxaparin Sodium 40 Mg/0.4 Ml Syringe) 40 mg SUBCUT Q24H [facility] Last Admin: 02/04/24 04:02 Dose: Not Given Hydroxyzine HCl (Hydroxyzine Hcl 50 Mg Tablet) 100 mg PO BEDTIME [facility] Last Admin: 02/03/24 20:54 Dose: 100 mg Vancomycin HCl 1,250 mg/ (Sodium Chloride) 250 mls @ 166.667 mls/hr IV Q12H [facility] Last Infusion: 02/04/24 05:29 Dose: Infused Melatonin (Melatonin 3 Mg Tablet) 6 mg PO BEDTIME PRN PRN Reason: Insomnia Nicotine (Nicotine 21 Mg Patch.Td24) 21 mg TRANSDERMA DAILY [facility] Last Admin: 02/04/24 08:50 Dose: 21 mg Ondansetron HCl (Ondansetron Hcl 4 Mg/2 Ml Vial) 4 mg IVPUSH Q8H PRN PRN Reason: Nausea and Vomiting Pharmacy Consult (Consult Rx Vancomycin Dosing) 1 each MISCELLANE DAILY PRN PRN Reason: Consult order Sodium Chloride (0.9 % Sodium Chloride Flush 3 Ml Syringe) 3 ml IVFLUSH QSHIFT [facility] Last Admin: 02/04/24 08:53 Dose: 3 ml Allergies Allergies Allergy/AdvReac Type Severity Reaction Status Date / Time No Known Allergies Allergy Verified 02/03/24 00:50 [No Known Allergies*] Assessment & Plan Assessment & Plan (1) Opioid use disorder: Status: Acute Code(s): F11.90 - Opioid use, unspecified, uncomplicated Assessment and Plan: methadone 30mg X1 today, will continue at this dose tomorrow patient reporting anxiety with being in room, encouraged to let nursing staff know and to keep blinds open sales program coordinator to send referral to [facility] verbalizing that he would like to enter treatment in another part of the state--advised him that medical clearance was necessary prior to any referrals being place. Patient agreeable Total time managing care of this patient today45 ____ minutes. [facility] Past Medical History Medical History (Updated 02/04/24 @ 16:43 by Dena Cano MD) Staphylococcus aureus bacteremia Asthma Social History Social History Household Members: Other Household Members Other:: rooomates Housing: Apartment Do you presently have visiting nurse or other home services: No Unable to assess alcohol history related to: Refusing to respond Alcohol intake: current Alcohol intake frequency: a few times a week Alcohol type: hard liquor Patient Tobacco Use Status: Current everyday Tobacco user Tobacco use type: Cigarette Cigarettes Per Day: 8 Substance Use Type: Crack/Cocaine, Marijuana and Opiates service: No
--- NOTE | 2024-02-04 11:00 | MHC.CM.PN ---
PT LIVES WITH ROOMATE,HAS SERVICES THRU [facility] , HAS A RIDE HOME PCP LIST GIVEN TO PT DC PLAN HOME
--- NOTE | 2024-02-04 14:08 | HO.WOUND ---
Wound Consult: Initial 38yr old?Male admitted to [facility] [place] on 02/03/24 - See progress notes and H&P for detailed history.? Wound consult placed for Right Thigh s/p I&D site.? Patient agreeable to assessment and photo documentation. Patient reports the area started as an ingrown hair and he repeatedly picked at the site. S/P I&D in ED per chart review. Right Lateral Thigh Etiology: S/P I&D site Measurements: see charting for detailed measurements Wound Bed: unable to visualize wound bed red moist tissue and adherent slough noted Drainage / Odor: creamy serosang drainage noted - no odor noted at this time of my consult Edges: ? linear Gabi wound: ?Red warm blanchable erythema, firm induration and dark purple pigmentation noted Pain: significant pain reported Goals of Treatment: ? Packing strip gauze to wound bed and secondary dressing change daily. Of note the patient c/o tenderness and swelling to groin and right scrotum. The groin has no erythema, no warmth suspect lymphnode reaction - will notify provide via TT. the right scrotum does not have erythem or swelling noted no pigmentation changes however there is a small round lump noted - intact tissue will notify provider via TT. Neither site needs topical intervention at this time. Recommendations: 1. Right Lateral Thigh - Cleanse and irrigate with NS, pat dry. Apply skin prep to the periwound allow to dry. Lightly pack wound bed with packing strip gauze be sure to leave wick for easy removal, cover with foam dressing and change daily. Re-consult wound care Nurse for wound deterioration or wound changes.
--- NOTE | 2024-02-04 15:01 | HE.PHANOTE ---
Re: Lucretia Pt has good renal function. Trough returned at 8.0 mg/L. Patient is sub-therapeutic. Dose increased to 1500mg Q12H, with predicted AUC 485 mg/L and predicted trough of 10.9 mg/L. Next random trough to be drawn 02/04 at 14:00.
--- NOTE | 2024-02-04 16:41 | W.PM.IDCN ---
History of Present Illness Data of Consult Service Date: 02/04/24 Requesting physician: Rosalio Johnson Primary Care Provider: None Physician HPI Reason for consult: staph aureus bacteremia He presents with right thigh redness and pain. He reports started taking heroin last month to get off cocaine. He has no received treatment for OUD. Review of Systems Review of Systems: Yes all other systems are reviewed and are negative PMFSH Past Medical History Medical History (Updated 02/04/24 @ 16:43 by Dena Cano MD) Staphylococcus aureus bacteremia Asthma Family History Family history: reviewed and not pertinent Social History Social History Household Members: Other Household Members Other:: rooomates Housing: Apartment Do you presently have visiting nurse or other home services: No Unable to assess alcohol history related to: Refusing to respond Alcohol intake: current Alcohol intake frequency: a few times a week Alcohol type: hard liquor Patient Tobacco Use Status: Current everyday Tobacco user Tobacco use type: Cigarette Cigarettes Per Day: 8 Substance Use Type: Crack/Cocaine, Marijuana and Opiates service: No Meds Allergies Allergy/AdvReac Type Severity Reaction Status Date / Time No Known Allergies Allergy Verified 02/03/24 00:50 [No Known Allergies*] Active Medications: Current Medications Acetaminophen (Acetaminophen 325 Mg Tablet) 650 mg PO Q6H PRN PRN Reason: Pain, Mild (Pain Scale 1-3) Last Admin: 02/04/24 15:36 Dose: 650 mg Albuterol Sulfate (Albuterol Sulfate 90 Mcg 8 Gm Inhaler) 2 puff INHALE QID PRN PRN Reason: wheezing Bupropion HCl (Bupropion Hcl Xl 150 Mg Tab.Er.24h) 150 mg PO DAILY [facility] Last Admin: 02/04/24 08:50 Dose: 150 mg Clonidine HCl (Clonidine Hcl 0.1 Mg Tablet) 0.1 mg PO BID [facility]; Protocol Last Admin: 02/04/24 08:50 Dose: 0.1 mg Enoxaparin Sodium (Enoxaparin Sodium 40 Mg/0.4 Ml Syringe) 40 mg SUBCUT Q24H [facility] Last Admin: 02/04/24 04:02 Dose: Not Given Hydroxyzine HCl (Hydroxyzine Hcl 50 Mg Tablet) 100 mg PO BEDTIME [facility] Last Admin: 02/03/24 20:54 Dose: 100 mg Vancomycin HCl 1,500 mg/ (Sodium Chloride) 500 mls @ 333.333 mls/hr IV Q12H [facility] Melatonin (Melatonin 3 Mg Tablet) 6 mg PO BEDTIME PRN PRN Reason: Insomnia Methadone HCl (Methadone Hcl 20 Mg/2 Ml Oral.Conc) 30 mg PO DAILY [facility] Nicotine (Nicotine 21 Mg Patch.Td24) 21 mg TRANSDERMA DAILY [facility] Last Admin: 02/04/24 08:50 Dose: 21 mg Ondansetron HCl (Ondansetron Hcl 4 Mg/2 Ml Vial) 4 mg IVPUSH Q8H PRN PRN Reason: Nausea and Vomiting Pharmacy Consult (Consult Rx Vancomycin Dosing) 1 each MISCELLANE DAILY PRN PRN Reason: Consult order Sodium Chloride (0.9 % Sodium Chloride Flush 3 Ml Syringe) 3 ml IVFLUSH QSHIFT [facility] Last Admin: 02/04/24 15:35 Dose: 3 ml Home Medications ?Medication ?Instructions ?Recorded ?Confirmed ?Last Taken ?Type albuterol sulfate 90 mcg/actuation 2 puff inhalation QID PRN wheezing 02/03/24 02/03/24 Unknown History aerosol inhaler (Ventolin HFA) bupropion HCl 150 mg 24 hr tablet, 150 mg PO QAM 02/03/24 02/03/24 Unknown History extended release clonidine HCl 0.1 mg tablet 0.1 mg PO BID 02/03/24 02/03/24 Unknown History hydroxyzine pamoate 100 mg capsule 100 mg PO BEDTIME 02/03/24 02/03/24 Unknown History Physical Exam Vital Signs: Vital Signs: Last Vital Signs Temp 97.5 F 02/04/24 15:31 Pulse 56 02/04/24 15:31 Resp 18 02/04/24 15:31 BP 124/81 02/04/24 15:31 Pulse Ox 99 02/04/24 15:31 O2 Del Method Room Air 02/04/24 15:31 BMI result Body Mass Index 21.1 Const: General: cooperative HEENT: Head: Yes normal to inspection Face and sinus: Yes normal facial exam Mouth: Normal oral and palatal mucosa present Teeth and gingiva: dentition normal Eyes: General: appearance normal, both eyes and all related structures Pupils: Equal, round and reactive pupils present Resp: Effort & Inspection: normal respiratory effort Cardio: Rate: regular rate Rhythm: regular rhythm GI: Palpation (GI): Soft to palpation and nontender : General: Yes no CVA tenderness Back/Spine/Pelvis: Back: no CVA tenderness Skin: General skin exam: no rashes or lesions noted Neuro: General: moves all extremities Cranial nerves: Yes Equal, round and reactive pupils present Extrem: Other: right upper thigh lateral redness Psych: Appearance: grossly normal Results Labs 02/04/24 05:48 02/04/24 05:48 Labs: Short CBC 02/04/24 Range/Units 05:48 WBC 11.9 H (4.8-10.8) X10*3/uL Hgb 12.2 L (14.0-18.0) g/dl Hct 35.9 L (42.0-52.0) % Plt Count 390 (160-400) X10*3/uL BMP 02/04/24 05:48 Sodium 141 Potassium 4.7 D Chloride 105 Carbon Dioxide 30 H BUN 8 L Creatinine 0.87 Calcium 9.4 D Microbiology Microbiology Results: Microbiology 02/03/24 Unknown Leg Right Gram Stain - Final 02/03/24 Unknown Leg Right Routine Culture - Preliminary Staphylococcus aureus 02/03/24 03:43 Blood - Venous Blood Culture - Preliminary Staphylococcus aureus 02/03/24 01:13 Blood - Venous Blood Culture - Preliminary No growth after 24 hours. Assessment and Plan (1) Opioid use disorder: Status: Acute (2) Cellulitis of right thigh: Status: Acute (3) Staphylococcus aureus bacteremia: Status: Acute Plan Either MSSA or MRSA Continue Vancomycin Wait sensitivities Check echo Check HIV and Hepatitis C. Probable four weeks IV.
[2024-02-04] MEDS: vancomycin HCL 1,500 MG in 0.9 % Sodium Chloride 500 ML 333.33 MG IV (17:06)
--- NOTE | 2024-02-04 19:14 | MHC.RECOVSUP ---
? Reason for consult Recovery support o Current location: 354-1 o Identified substance use concern: Heroin - Support ? Intervention: o Community resources provided o Harm reduction discussion ? Plan: o Patient to follow up with H after discharge ? Additional information: Met with Patient and we talked about Recovery and what that looks like.. We talked about harm reduction, and resources.
[2024-02-04] MEDS: hydrOXYzine HCL 50 MG TABLET 100 MG PO (20:54)
[2024-02-05] VITALS (7 sets, daily range): BP systolic 98–137; BP diastolic 58–88; PULSE 55–64; RESP 16–18; TEMP 36–36.8; O2SAT 96–99
[2024-02-05] MEDS: vancomycin HCL 1,500 MG in 0.9 % Sodium Chloride 500 ML 333.33 MG IV ×2 (03:37→15:56)
[2024-02-05 06:26] LABS: Anion Gap 12 (12-20); Blood Urea Nitrogen 9 mg/dL (9-16); Calcium 8.9 mg/dL (8.4-10.2); Carbon Dioxide 26 mmol/L (22-29); Chloride 106 mmol/L (96-108); Creatinine Clr Calc Pharmacy 133.1; Estimated Glomerular Filt Rate > 60; Glucose Fasting 114 mg/dL (60-99); Sodium 140 mmol/L (135-145)
[2024-02-05 06:28] LABS: Hematocrit 34.8 % (42.0-52.0); Hemoglobin 11.9 g/dl (14.0-18.0); Mean Corpuscular HGB Conc 34.2 g/dl (31.0-36.0); Mean Corpuscular Hemoglobin 31.9 pg (27.0-33.0); Mean Corpuscular Volume 93.3 fL (80.0-98.0); Mean Platelet Volume 8.5 fL (9.4-12.4); Platelet Count 440 X10*3/uL (160-400); Red Blood Count 3.73 X10*6/uL (4.60-5.80); Red Cell Distribution Width 13.4 % (11.0-16.0); White Blood Count 11.3 X10*3/uL (4.8-10.8)
[2024-02-05 07:27] LABS: HIV AB/AG Nonreactive (Nonreactive); HIV Num 1 0.05 S/CO (0.00-0.99)
[2024-02-05 07:30] LABS: ~HepC Num1 0.08 S/CO (0.00-0.79); ~Hepatitis C Antibody Nonreactive (Nonreactive)
[2024-02-05] MEDS: methADONE HCl 20 MG/2 ML ORAL.CONC 30 MG PO (08:12)
[2024-02-05] MEDS: Nicotine 21 MG PATCH.TD24 TRANSDERMA (08:12)
[2024-02-05] MEDS: cloNIDine HCL 0.1 MG TABLET PO ×2 (08:12→21:27)
[2024-02-05] MEDS: buPROPion HCl XL 150 MG TAB.ER.24H PO (08:12)
[2024-02-05] MEDS: 0.9 % Sodium Chloride Flush 3 ML SYRINGE IVFLUSH ×2 (08:17→15:56)
--- NOTE | 2024-02-05 08:34 | P.PNIM_ITS ---
Subjective Subjective Date of Service: 02/05/24 Interval History: improved withdrawal symptoms Physical Exam 2 Vital Signs: Vital Signs: Last Vital Signs Temp 97.9 F 02/05/24 07:41 Pulse 57 02/05/24 07:41 Resp 17 02/05/24 07:41 BP 109/63 02/05/24 07:41 Pulse Ox 98 02/05/24 07:41 O2 Del Method Room Air 02/05/24 07:41 BMI result Body Mass Index 21.1 Const: General: cooperative HEENT: Head: Yes normal to inspection Face and sinus: Yes normal facial exam Mouth: Normal oral and palatal mucosa present Teeth and gingiva: d entition normal Eyes: General: appearance normal, both eyes and all related structures P upils: Equal, round and reactive pupils present Resp: Effort & Inspection: normal respiratory effort Cardio: Rate: regular rate Rhythm: regular rhythm GI: Palpation (GI): Soft to palpation and nontender : General: Yes no CVA tenderness Back/Spine/Pelvis: Back: no CVA tenderness Skin: General skin exam: no rashes or lesions noted Neuro: General: moves all extremities Cranial nerves: Yes Equal, round and reactive pupils present Extrem: Other: right upper thigh lateral redness Psych: Appearance: grossly normal Objective Data Active Medications Acetaminophen (Acetaminophen 325 Mg Tablet) 650 mg PO Q6H PRN PRN Reason: Pain, Mild (Pain Scale 1-3) Last Admin: 02/04/24 15:36 Dose: 650 mg Documented By: SARBJIT Albuterol Sulfate (Albuterol Sulfate 90 Mcg 8 Gm Inhaler) 2 puff INHALE QID PRN PRN Reason: wheezing Bupropion HCl (Bupropion Hcl Xl 150 Mg Tab.Er.24h) 150 mg PO DAILY [facility] Last Admin: 02/05/24 08:12 Dose: 150 mg Documented By: SARBJIT Clonidine HCl (Clonidine Hcl 0.1 Mg Tablet) 0.1 mg PO BID [facility]; Protocol Last Admin: 02/05/24 08:12 Dose: 0.1 mg Documented By: SARBJIT Enoxaparin Sodium (Enoxaparin Sodium 40 Mg/0.4 Ml Syringe) 40 mg SUBCUT Q24H [facility] Last Admin: 02/05/24 03:41 Dose: Not Given Documented By: KENTON Non-Admin Reason: pt declined, walking frequ, moving in bed Hydroxyzine HCl (Hydroxyzine Hcl 50 Mg Tablet) 100 mg PO BEDTIME [facility] Last Admin: 02/04/24 20:54 Dose: 100 mg Documented By: KENTON Vancomycin HCl 1,500 mg/ (Sodium Chloride) 500 mls @ 333.333 mls/hr IV Q12H [facility] Last Infusion: 02/05/24 05:08 Dose: Infused Documented By: KENTON Melatonin (Melatonin 3 Mg Tablet) 6 mg PO BEDTIME PRN PRN Reason: Insomnia Methadone HCl (Methadone Hcl 20 Mg/2 Ml Oral.Conc) 30 mg PO DAILY [facility] Last Admin: 02/05/24 08:12 Dose: 30 mg Documented By: SARBJIT Nicotine (Nicotine 21 Mg Patch.Td24) 21 mg TRANSDERMA DAILY [facility] Last Admin: 02/05/24 08:12 Dose: 21 mg Documented By: SARBJIT Ondansetron HCl (Ondansetron Hcl 4 Mg/2 Ml Vial) 4 mg IVPUSH Q8H PRN PRN Reason: Nausea and Vomiting Pharmacy Consult (Consult Rx Vancomycin Dosing) 1 each MISCELLANE DAILY PRN PRN Reason: Consult order Sodium Chloride (0.9 % Sodium Chloride Flush 3 Ml Syringe) 3 ml IVFLUSH QSHIFT [facility] Last Admin: 02/05/24 08:17 Dose: 3 ml Documented By: SARBJIT Labs 02/05/24 05:51 02/05/24 05:51 Labs: Laboratory Results - last 24 hr 02/04/24 02/05/24 14:34 05:51 MCV 93.3 MCH 31.9 MCHC 34.2 RDW 13.4 Plt Count 440 H MPV 8.5 L Absolute Nucleated RBC 0.000 Nucleated RBC % (auto) 0.0 Anion Gap 12 Estim Creat Clear Calc 133.1 Estimated GFR > 60 Fasting Glucose 114 H Calcium 8.9 Vancomycin Trough 8.0 L Hepatitis C Ab (EIA) Nonreactive HIV 1&2 Ab/P24 Ag 4thGn Nonreactive Microbiology Microbiology Results: Microbiology 02/03/24 Unknown Gram Stain - Final Leg Right Routine Culture - Final Methicillin Res Staph Aureus 02/03/24 01:13 Blood Culture - Preliminary Blood - Venous No growth after 48 hours. 02/03/24 03:43 Blood Culture - Preliminary Blood - Venous Staphylococcus aureus Assessment and Plan (1) Cellulitis of right thigh: Status: Acute Plan 38M PMH mild intermittent asthma, polysubstance use disorder presented with fevers, erythema and pain of the right thigh Sepsis due to right thigh abscess and cellulitis complicated by MRSA bacteremia Continue IV vancomycin (will need to complete at SNF due to polysubstance dependence) follow-up cultures echo scrotal lump follow up us ?epidydmal cyst Polysubstance dependence with withdrawal Addiction team following, continue methadone hiv and hcv negative Mild intermittent asthma P.r.n. bronchodilators DVT prophylaxis with Lovenox Full Code Reason for continued hospitalization: Awaiting culture clearance Quality Stroke Does the patient have a stroke diagnosis?: No VTE Prior VTE?: No VTE Risk Level:: Medical - moderate - high VTE Device Contraindication: Treatment Not Indicated VTE Drug Contraindication: N/A - Med Ordered
[2024-02-05 14:35] LABS: Vancomycin Random 14.1 mcg/mL (15-20)
--- NOTE | 2024-02-05 15:36 | MHC.RECOVRN ---
Met with pt in 354 to follow up and provide support. Pt sitting in bed, awake, alert, easily engages in conversation, appears comfortable. Pt denies withdrawal symptoms, reports 30 mg methadone is a good dose. Pt reports sleeping and eating well. Pt reports he may need 4 weeks of IV antibiotics, however, will decline and conduct a self directed discharge. Pt states I can't go sit at another facility for 4 weeks. Pt would like to continue methadone and be connected to [facility]. Pt denies other questions or concerns for t/w. Discussed with Aziaz Mondragon APRN. Referral sent to [facility].
[2024-02-05] MEDS: hydrOXYzine HCL 50 MG TABLET 100 MG PO (21:28)
[2024-02-05] MEDS: Acetaminophen 325 MG TABLET 650 MG PO (21:35)
[2024-02-06] VITALS (9 sets, daily range): BP systolic 102–136; BP diastolic 61–88; PULSE 54–80; RESP 18; TEMP 36–36.4; O2SAT 97–99
[2024-02-06] MEDS: vancomycin HCL 1,500 MG in 0.9 % Sodium Chloride 500 ML 333.33 MG IV ×2 (03:27→15:37)
[2024-02-06] MEDS: Acetaminophen 325 MG TABLET 650 MG PO (03:35)
[2024-02-06] MEDS: Ketorolac Tromethamine 30 MG/ML VIAL IVPUSH (05:44)
[2024-02-06] MEDS: 0.9 % Sodium Chloride Flush 3 ML SYRINGE IVFLUSH ×3 (08:54→19:57)
[2024-02-06] MEDS: Nicotine 21 MG PATCH.TD24 TRANSDERMA (08:54)
[2024-02-06] MEDS: cloNIDine HCL 0.1 MG TABLET PO ×2 (08:56→19:55)
[2024-02-06] MEDS: buPROPion HCl XL 150 MG TAB.ER.24H PO (08:56)
[2024-02-06] MEDS: methADONE HCl 20 MG/2 ML ORAL.CONC 30 MG PO (08:57)
[2024-02-06 09:35] LABS: Creatinine Clr Calc Pharmacy 128.1; Estimated Glomerular Filt Rate > 60
--- NOTE | 2024-02-06 12:10 | P.PNIM_ITS ---
Subjective Subjective Date of Service: 02/06/24 Interval History: seen and evaluated this morning wound still indurated and secreting large amount of pus no fever or chills cultures pending Review of Systems Review of Systems: Yes all other systems are reviewed and are negative Physical Exam 2 Vital Signs: Vital Signs: Last Vital Signs Temp 97.6 F 02/06/24 08:00 Pulse 57 02/06/24 08:58 Resp 18 02/06/24 08:00 BP 102/67 02/06/24 08:56 Pulse Ox 97 02/06/24 08:58 O2 Del Method Room Air 02/06/24 08:58 BMI result Body Mass Index 21.1 Const: Other: Constitutional : Awake, interactive, not in distress Neck : Normal inspection, Supple Cardiovascular : RRR, no JVP, no lower extremity edema Respiratory : good bilateral air entry, no crackles, wheezes or rhonchi Gastrointestinal: soft, lax, Normal bowel sounds, Non tender Skin : Warm, Dry, large indurated right thigh wound with packing, indurated, pus drainage Neurological : Alert & oriented x3, No focal deficit Objective Data Active Medications Acetaminophen (Acetaminophen 325 Mg Tablet) 975 mg PO Q6H PRN PRN Reason: mild pain, headache or fever Albuterol Sulfate (Albuterol Sulfate 90 Mcg 8 Gm Inhaler) 2 puff INHALE QID PRN PRN Reason: wheezing Bupropion HCl (Bupropion Hcl Xl 150 Mg Tab.Er.24h) 150 mg PO DAILY [facility] Last Admin: 02/06/24 08:56 Dose: 150 mg Documented By: SONALI Clonidine HCl (Clonidine Hcl 0.1 Mg Tablet) 0.1 mg PO BID [facility]; Protocol Last Admin: 02/06/24 08:56 Dose: 0.1 mg Documented By: SONALI Enoxaparin Sodium (Enoxaparin Sodium 40 Mg/0.4 Ml Syringe) 40 mg SUBCUT Q24H [facility] Last Admin: 02/06/24 03:38 Dose: Not Given Documented By: REJI Non-Admin Reason: Patient Refused Hydroxyzine HCl (Hydroxyzine Hcl 50 Mg Tablet) 100 mg PO BEDTIME [facility] Last Admin: 02/05/24 21:28 Dose: 100 mg Documented By: ISSA Vancomycin HCl 1,500 mg/ (Sodium Chloride) 500 mls @ 333.333 mls/hr IV Q12H [facility] Last Infusion: 02/06/24 05:03 Dose: Infused Documented By: REJI Melatonin (Melatonin 3 Mg Tablet) 6 mg PO BEDTIME PRN PRN Reason: Insomnia Methadone HCl (Methadone Hcl 20 Mg/2 Ml Oral.Conc) 30 mg PO DAILY [facility] Last Admin: 02/06/24 08:57 Dose: 30 mg Documented By: SONALI Nicotine (Nicotine 21 Mg Patch.Td24) 21 mg TRANSDERMA DAILY [facility] Last Admin: 02/06/24 08:54 Dose: 21 mg Documented By: SONALI Ondansetron HCl (Ondansetron Hcl 4 Mg/2 Ml Vial) 4 mg IVPUSH Q8H PRN PRN Reason: Nausea and Vomiting Pharmacy Consult (Consult Rx Vancomycin Dosing) 1 each MISCELLANE DAILY PRN PRN Reason: Consult order Sodium Chloride (0.9 % Sodium Chloride Flush 3 Ml Syringe) 3 ml IVFLUSH QSHIFT [facility] Last Admin: 02/06/24 08:54 Dose: 3 ml Documented By: SONALI Labs 02/05/24 05:51 02/06/24 09:04 Labs: Laboratory Results - last 24 hr 02/05/24 02/06/24 13:59 09:04 Hold Purple Top SEE NOTE Estim Creat Clear Calc 128.1 Estimated GFR > 60 Random Vancomycin 14.1 L Microbiology Microbiology Results: Microbiology 02/05/24 05:51 Blood Culture - Preliminary Blood - Venous No growth after 24 hours. 02/05/24 05:51 Blood Culture - Preliminary Blood - Venous No growth after 24 hours. 02/03/24 Unknown Gram Stain - Final Leg Right Routine Culture - Final Methicillin Res Staph Aureus 02/03/24 03:43 Blood Culture - Final Blood - Venous Methicillin Res Staph Aureus Assessment and Plan (1) Staphylococcus aureus bacteremia: Status: Acute (2) Cellulitis of right thigh: Status: Acute (3) Abscess of right thigh: Status: Acute (4) Sepsis: Status: Acute Plan 38M PMH mild intermittent asthma, polysubstance use disorder presented with fevers, erythema and pain of the right thigh Sepsis due to right thigh abscess and cellulitis complicated by MRSA bacteremia Continue IV vancomycin (will need to complete at [facility] due to polysubstance dependence) follow-up repeat cultures, still pending echo not reporting any vegetations PICC line and placement once cultures negative Surgery to eval the wound for induration ID consult follow Vancomycin trough scrotal lump US scrotum showing 0.5 epidydmal cyst can be followed as outpatient Polysubstance dependence with withdrawal Addiction team following, continue methadone hiv and hcv negative Mild intermittent asthma P.r.n. bronchodilators DVT prophylaxis with Lovenox Full Code Reason for continued hospitalization: Awaiting culture clearance on IV antibiotics , pending surgery evaluation Quality Stroke Does the patient have a stroke diagnosis?: No VTE Prior VTE?: No VTE Risk Level:: Medical - moderate - high VTE Device Contraindication: Treatment Not Indicated VTE Drug Contraindication: N/A - Med Ordered
--- NOTE | 2024-02-06 12:50 | MHC.RECOVRN ---
Met with pt to follow up and provide support. Pt sitting in chair, awake, alert, easily engages in conversation. Pt reports anxiety related to being in the hospital, states I'm not an indoor person. Pt reports methadone is continuing to go well. Pt reports he is unsure today if he will be willing to go to SNF for IV antibiotics. Pt denies questions or concerns for t/w. Discussed with Aziza Mondragon APRN.
--- NOTE | 2024-02-06 14:02 | HO.WOUND ---
Wound Consult: Follow up 38yr old?[place] [facility] - See progress notes and H&P for detailed history.? Wound consult follow up for Right Thigh s/p I&D site.? Patient agreeable to assessment and photo documentation. Patient reports the area started as an ingrown hair and he repeatedly picked at the site. Overall improved - less erythema and swelling noted. Firm induration remains. Less pain reported by patient. Right Lateral Thigh 02/04/24 Etiology: S/P I&D site Wound Bed: unable to visualize wound bed red moist tissue and adherent slough noted Drainage / Odor: appears to remain creamy serosang drainage noted - no odor noted at this time of my consult Edges: ?irregular Gabi wound: ?improved pink blanchable erythema, firm induration and dark purple pigmentation noted - yellow slough adherent to the wound bed around the packing Pain: decrease in pain reported Goals of Treatment: ? Packing strip gauze to wound bed and secondary dressing change daily. TT to Dr. Martínez with improving status. No new topical recommendations needed at this time. Recommendations: 1. Right Lateral Thigh - Cleanse and irrigate with NS, pat dry. Apply skin prep to the periwound allow to dry. Lightly pack wound bed with packing strip gauze be sure to leave wick for easy removal, cover with foam dressing and change daily. Re-consult wound care Nurse for wound deterioration or wound changes.
--- NOTE | 2024-02-06 14:15 | P.CONGS_ITS ---
History of Present Illness Consult details Consult date: 02/06/24 Requesting physician: Madeline Martínez Narrative: 38-year-old male patient with history of IV drug use found to have a tender red area of his right upper thigh, presenting to the emergency department on 02/03/2024 for further evaluation. At that time and incision and drainage was performed and the wound was packed with packing. He was admitted to the hospitalist service and started on IV antibiotics. Surgical consultation was requested regarding the thigh wound due to the purulent discharge noted still from the wound. Patient reports that the wound is still sore to the touch. He is uncertain if there is any improvement. Review of Systems 2 Review of Systems: Yes all other systems are reviewed and are negative PMFSH Past Medical History Medical History Staphylococcus aureus bacteremia Asthma Family History Family history: reviewed and not pertinent Social History Social History Household Members: Other Household Members Other:: rooomates Housing: Apartment Do you presently have visiting nurse or other home services: No Unable to assess alcohol history related to: Refusing to respond Alcohol intake: current Alcohol intake frequency: a few times a week Alcohol type: hard liquor Patient Tobacco Use Status: Current everyday Tobacco user Tobacco use type: Cigarette Cigarettes Per Day: 8 Substance Use Type: Crack/Cocaine, Marijuana and Opiates service: No Meds Allergies Allergy/AdvReac Type Severity Reaction Status Date / Time No Known Allergies Allergy Verified 02/03/24 00:50 [No Known Allergies*] Active Medications: Current Medications Acetaminophen (Acetaminophen 325 Mg Tablet) 975 mg PO Q6H PRN PRN Reason: mild pain, headache or fever Albuterol Sulfate (Albuterol Sulfate 90 Mcg 8 Gm Inhaler) 2 puff INHALE QID PRN PRN Reason: wheezing Bupropion HCl (Bupropion Hcl Xl 150 Mg Tab.Er.24h) 150 mg PO DAILY [facility] Last Admin: 02/06/24 08:56 Dose: 150 mg Clonidine HCl (Clonidine Hcl 0.1 Mg Tablet) 0.1 mg PO BID [facility]; Protocol Last Admin: 02/06/24 08:56 Dose: 0.1 mg Enoxaparin Sodium (Enoxaparin Sodium 40 Mg/0.4 Ml Syringe) 40 mg SUBCUT Q24H [facility] Last Admin: 02/06/24 03:38 Dose: Not Given Hydroxyzine HCl (Hydroxyzine Hcl 50 Mg Tablet) 100 mg PO BEDTIME [facility] Last Admin: 02/05/24 21:28 Dose: 100 mg Vancomycin HCl 1,500 mg/ (Sodium Chloride) 500 mls @ 333.333 mls/hr IV Q12H [facility] Last Infusion: 02/06/24 05:03 Dose: Infused Melatonin (Melatonin 3 Mg Tablet) 6 mg PO BEDTIME PRN PRN Reason: Insomnia Methadone HCl (Methadone Hcl 20 Mg/2 Ml Oral.Conc) 30 mg PO DAILY [facility] Last Admin: 02/06/24 08:57 Dose: 30 mg Nicotine (Nicotine 21 Mg Patch.Td24) 21 mg TRANSDERMA DAILY [facility] Last Admin: 02/06/24 08:54 Dose: 21 mg Ondansetron HCl (Ondansetron Hcl 4 Mg/2 Ml Vial) 4 mg IVPUSH Q8H PRN PRN Reason: Nausea and Vomiting Pharmacy Consult (Consult Rx Vancomycin Dosing) 1 each MISCELLANE DAILY PRN PRN Reason: Consult order Sodium Chloride (0.9 % Sodium Chloride Flush 3 Ml Syringe) 3 ml IVFLUSH QSHIFT [facility] Last Admin: 02/06/24 08:54 Dose: 3 ml Home Medications ?Medication ?Instructions ?Recorded ?Confirmed ?Last Taken ?Type albuterol sulfate 90 mcg/actuation 2 puff inhalation QID PRN wheezing 02/03/24 02/03/24 Unknown History aerosol inhaler (Ventolin HFA) bupropion HCl 150 mg 24 hr tablet, 150 mg PO QAM 02/03/24 02/03/24 Unknown History extended release clonidine HCl 0.1 mg tablet 0.1 mg PO BID 02/03/24 02/03/24 Unknown History hydroxyzine pamoate 100 mg capsule 100 mg PO BEDTIME 02/03/24 02/03/24 Unknown History Physical Exam 2 Vital Signs: Vital Signs: Last Vital Signs Temp 97.6 F 02/06/24 08:00 Pulse 57 02/06/24 08:58 Resp 18 02/06/24 08:00 BP 102/67 02/06/24 08:56 Pulse Ox 97 02/06/24 08:58 O2 Del Method Room Air 02/06/24 08:58 BMI result Body Mass Index 21.1 Const: General: comfortable Nutritional Appearance: well nourished O rientation/consciousness: patient oriented x3 Resp: Effort & Inspection: normal respiratory effort, no audible wheezes and no cough GI: Inspection: Yes normal to inspection Palpation (GI): Soft to palpation Skin: Other: Right leg below Neuro: General: patient oriented x3 Extrem: Other: Open wound in the right upper lateral thigh with surrounding area of excoriation. Wound is open and packed with quarter-inch Nu Gauze. No palpable abscess remains. There is purulence discharge noted coming from the wound however no undrained abscess is noted. Results Labs 02/05/24 05:51 02/06/24 09:04 Labs: Abnormal lab results 02/05/24 Range/Units 13:59 Random Vancomycin 14.1 L (15-20) mcg/mL BMP 02/06/24 09:04 Creatinine 0.81 All other labs normal. Assessment and Plan (1) Staphylococcus aureus bacteremia: Status: Acute (2) Abscess of right thigh: Status: Acute Plan Abscess of right thigh due to IV drug use. No evidence of undrained abscess following I and D in the emergency department. Recommend using dry sterile dressings to wound rather than pink foam pad which seems to be holding moisture against the skin. No further surgical intervention is required at this time. Procedures Date of Service Date of Service: 02/06/24
--- NOTE | 2024-02-06 14:44 | PC.NURSE ---
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 Martínez notified
--- NOTE | 2024-02-06 14:44 | MHC.CM.PN ---
Per MD rounds no discharge today. A surgical consult has been ordered. No surgical intervention planned at this time. A clinical update has been sent to [facility]. MANDA [facility] via BLS. CM will follow for discharge.
[2024-02-06 14:51] LABS: Vancomycin Random 14.3 mcg/mL (15-20)
[2024-02-06] MEDS: Acetaminophen 325 MG TABLET 975 MG PO (19:54)
[2024-02-06] MEDS: hydrOXYzine HCL 50 MG TABLET 100 MG PO (19:56)
[2024-02-06] MEDS: Melatonin 3 MG TABLET 6 MG PO (19:57)
[2024-02-07] VITALS (7 sets, daily range): BP systolic 106–123; BP diastolic 62–77; PULSE 50–60; RESP 18; TEMP 36.3–36.4; O2SAT 98–100
[2024-02-07] MEDS: vancomycin HCL 1,500 MG in 0.9 % Sodium Chloride 500 ML 333.3 MG IV (03:07)
--- NOTE | 2024-02-07 08:14 | PC.NURSE ---
lat entery: administered PO tylenol for scale 7/10 as pt requesting tylenol with additional ibuprofen
[2024-02-07] MEDS: Acetaminophen 325 MG TABLET 975 MG PO ×2 (08:26→21:28)
[2024-02-07] MEDS: buPROPion HCl XL 150 MG TAB.ER.24H PO (08:26)
[2024-02-07] MEDS: cloNIDine HCL 0.1 MG TABLET PO ×2 (08:26→21:29)
[2024-02-07] MEDS: methADONE HCl 20 MG/2 ML ORAL.CONC 30 MG PO (08:26)
[2024-02-07] MEDS: 0.9 % Sodium Chloride Flush 3 ML SYRINGE IVFLUSH ×3 (08:29→21:37)
--- NOTE | 2024-02-07 09:25 | P.PNIM_ITS ---
Subjective Subjective Date of Service: 02/07/24 Interval History: seen and evaluated this morning wound still indurated , surgery did not feel the need for more drainage no fever or chills Negative repeat cultures Review of Systems Review of Systems: Yes all other systems are reviewed and are negative Physical Exam 2 Vital Signs: Vital Signs: Last Vital Signs Temp 97.5 F 02/07/24 07:35 Pulse 56 02/07/24 07:35 Resp 18 02/07/24 07:35 BP 108/69 02/07/24 07:35 Pulse Ox 100 02/07/24 07:35 O2 Del Method Room Air 02/07/24 07:35 BMI result Body Mass Index 21.1 Const: Other: Constitutional : Awake, interactive, not in distress Neck : Normal inspection, Supple Cardiovascular : RRR, no JVP, no lower extremity edema Respiratory : good bilateral air entry, no crackles, wheezes or rhonchi Gastrointestinal: soft, lax, Normal bowel sounds, Non tender Skin : Warm, Dry, large indurated right thigh wound with packing, indurated, pus drainage Neurological : Alert & oriented x3, No focal deficit Objective Data Active Medications Acetaminophen (Acetaminophen 325 Mg Tablet) 975 mg PO Q6H PRN PRN Reason: mild pain, headache or fever Last Admin: 02/07/24 08:26 Dose: 975 mg Documented By: LAST Albuterol Sulfate (Albuterol Sulfate 90 Mcg 8 Gm Inhaler) 2 puff INHALE QID PRN PRN Reason: wheezing Bupropion HCl (Bupropion Hcl Xl 150 Mg Tab.Er.24h) 150 mg PO DAILY [facility] Last Admin: 02/07/24 08:26 Dose: 150 mg Documented By: LAST Clonidine HCl (Clonidine Hcl 0.1 Mg Tablet) 0.1 mg PO BID [facility]; Protocol Last Admin: 02/07/24 08:26 Dose: 0.1 mg Documented By: LAST Enoxaparin Sodium (Enoxaparin Sodium 40 Mg/0.4 Ml Syringe) 40 mg SUBCUT Q24H [facility] Last Admin: 02/07/24 03:22 Dose: Not Given Documented By: REJI Non-Admin Reason: Patient Refused Hydroxyzine HCl (Hydroxyzine Hcl 50 Mg Tablet) 100 mg PO BEDTIME [facility] Last Admin: 02/06/24 19:56 Dose: 100 mg Documented By: REJI Vancomycin HCl 1,500 mg/ (Sodium Chloride) 500 mls @ 333.333 mls/hr IV Q12H [facility] Last Infusion: 02/07/24 04:40 Dose: Infused Documented By: REJI Ibuprofen (Ibuprofen 400 Mg Tablet) 400 mg PO TIDWM [facility] Melatonin (Melatonin 3 Mg Tablet) 6 mg PO BEDTIME PRN PRN Reason: Insomnia Last Admin: 02/06/24 19:57 Dose: 6 mg Documented By: REJI Methadone HCl (Methadone Hcl 20 Mg/2 Ml Oral.Conc) 30 mg PO DAILY [facility] Last Admin: 02/07/24 08:26 Dose: 30 mg Documented By: LAST Nicotine (Nicotine 21 Mg Patch.Td24) 21 mg TRANSDERMA DAILY [facility] Last Admin: 02/07/24 08:34 Dose: Not Given Documented By: LAST Non-Admin Reason: Patient Refused Ondansetron HCl (Ondansetron Hcl 4 Mg/2 Ml Vial) 4 mg IVPUSH Q8H PRN PRN Reason: Nausea and Vomiting Oxycodone HCl (Oxycodone Hcl Immed Release 5 Mg Tablet) 5 mg PO Q6H PRN PRN Reason: Pain, Severe (Pain Scale 7-10) Pharmacy Consult (Consult Rx Vancomycin Dosing) 1 each MISCELLANE DAILY PRN PRN Reason: Consult order Sodium Chloride (0.9 % Sodium Chloride Flush 3 Ml Syringe) 3 ml IVFLUSH QSHIFT [facility] Last Admin: 02/07/24 08:29 Dose: 3 ml Documented By: LAST Labs 02/05/24 05:51 02/06/24 09:04 Labs: Laboratory Results - last 24 hr 02/06/24 02/06/24 09:04 14:02 Estim Creat Clear Calc 128.1 Estimated GFR > 60 Random Vancomycin 14.3 L Microbiology Microbiology Results: Microbiology 02/05/24 05:51 Blood Culture - Preliminary Blood - Venous No growth after 48 hours. 02/05/24 05:51 Blood Culture - Preliminary Blood - Venous No growth after 48 hours. Assessment and Plan (1) Staphylococcus aureus bacteremia: Status: Acute (2) Sepsis: Status: Acute (3) Abscess of right thigh: Status: Acute Plan 38M PMH mild intermittent asthma, polysubstance use disorder presented with fevers, erythema and pain of the right thigh Sepsis due to right thigh abscess and cellulitis complicated by MRSA bacteremia Continue IV vancomycin (will need to complete at SNF due to polysubstance dependence) negative repeat cultures, to place PICC line echo not reporting any vegetations PICC line and placement once cultures negative Surgery did not feel the need for further drainage at this point and suggested medical management and wound care. ID consult, 4 weeks IV Abx follow Vancomycin trough scrotal lump US scrotum showing 0.5 epidydmal cyst can be followed as outpatient Polysubstance dependence with withdrawal Addiction team following, continue methadone hiv and hcv negative Mild intermittent asthma P.r.n. bronchodilators DVT prophylaxis with Lovenox Full Code Reason for continued hospitalization: Awaiting culture clearance on IV antibiotics Quality Stroke Does the patient have a stroke diagnosis?: No VTE Prior VTE?: No VTE Risk Level:: Medical - moderate - high VTE Device Contraindication: Treatment Not Indicated VTE Drug Contraindication: N/A - Med Ordered
[2024-02-07] MEDS: oxyCODONE HCl Immed Release 5 MG TABLET PO ×3 (09:43→21:29)
[2024-02-07 11:04] LABS: Hematocrit 37.9 % (42.0-52.0); Hemoglobin 12.4 g/dl (14.0-18.0); Mean Corpuscular HGB Conc 32.7 g/dl (31.0-36.0); Mean Corpuscular Hemoglobin 31.4 pg (27.0-33.0); Mean Corpuscular Volume 95.9 fL (80.0-98.0); Mean Platelet Volume 8.3 fL (9.4-12.4); Platelet Count 484 X10*3/uL (160-400); Red Blood Count 3.95 X10*6/uL (4.60-5.80); Red Cell Distribution Width 13.6 % (11.0-16.0); White Blood Count 9.3 X10*3/uL (4.8-10.8)
[2024-02-07 11:16] LABS: Anion Gap 9 (12-20); Blood Urea Nitrogen 7 mg/dL (9-16); Calcium 9.2 mg/dL (8.4-10.2); Carbon Dioxide 32 mmol/L (22-29); Chloride 102 mmol/L (96-108); Estimated Glomerular Filt Rate > 60; Glucose Random 105 mg/dL (60-115); Potassium 4.2 mmol/L (3.3-5.1); Sodium 139 mmol/L (135-145)
[2024-02-07] MEDS: Ibuprofen 400 MG TABLET PO (11:56)
[2024-02-07 14:33] LABS: Vancomycin Random 15.4 mcg/mL (15-20)
--- NOTE | 2024-02-07 14:45 | HE.PHANOTE ---
Re: Silviao Fluctuating renal function. Trough returned at 15.4. Patient is therapeutic. Continue dose at 1500 mg Q12H with predicted AUC 565 and predicted trough 14.5.
--- NOTE | 2024-02-07 15:05 | MHC.CM.PN ---
[facility] is offering a bed pending guest dosing set up. Recovery nurse notified that guest dosing is needed for discharge. IR has been notified that the patient has a bed. Request made for PICC line insertion sent via [employer]. updated. CM will follow for discharge.
--- NOTE | 2024-02-07 15:34 | MHC.RECOVRN ---
Pts referral has been sent to [facility].
[2024-02-07] MEDS: vancomycin HCL 1,500 MG in 0.9 % Sodium Chloride 500 ML 333 MG IV (15:57)
[2024-02-07] MEDS: hydrOXYzine HCL 50 MG TABLET 100 MG PO (21:29)
[2024-02-07] MEDS: Melatonin 3 MG TABLET 6 MG PO (21:29)
[2024-02-08 01:44] VITALS: BP 110/72; PULSE 60; RESP 16; TEMP 36.3; O2SAT 97
[2024-02-08] MEDS: oxyCODONE HCl Immed Release 5 MG TABLET PO ×4 (04:30→22:32)
[2024-02-08] MEDS: vancomycin HCL 1,500 MG in 0.9 % Sodium Chloride 500 ML 333.33 MG IV (04:45)
[2024-02-08 07:38] VITALS: BP 119/65; PULSE 54; RESP 18; TEMP 36.1; O2SAT 99
--- NOTE | 2024-02-08 08:03 | PM.PNGS ---
Subjective Subjective Date of Service: 02/08/24 Interval history: Patient complaining of left antecubital fossa intravenous causing swelling in the left arm. Denies significant pain in his right leg. Physical Exam Vital Signs: Vital Signs: Last Vital Signs Temp 97.0 F 02/08/24 07:38 Pulse 54 02/08/24 07:38 Resp 18 02/08/24 07:38 BP 119/65 02/08/24 07:38 Pulse Ox 99 02/08/24 07:38 O2 Del Method Room Air 02/08/24 07:38 BMI result Body Mass Index 21.1 Const: General: no acute distress Nutritional Appearance: well nourished Orientation/consciousness: patient oriented x3 Resp: Effort & Inspection: normal respiratory effort Neuro: General: patient oriented x3 Extrem: Other: Right thigh I&D site dressings changed. Packing removed and dressings changed to a dry sterile dressing rather than pink foam dressing. No undrained abscess identified. Objective Data Active Medications Acetaminophen (Acetaminophen 325 Mg Tablet) 975 mg PO Q6H PRN PRN Reason: mild pain, headache or fever Last Admin: 02/07/24 21:28 Dose: 975 mg Documented By: DOLLY Albuterol Sulfate (Albuterol Sulfate 90 Mcg 8 Gm Inhaler) 2 puff INHALE QID PRN PRN Reason: wheezing Bupropion HCl (Bupropion Hcl Xl 150 Mg Tab.Er.24h) 150 mg PO DAILY [facility] Last Admin: 02/07/24 08:26 Dose: 150 mg Documented By: LAST Clonidine HCl (Clonidine Hcl 0.1 Mg Tablet) 0.1 mg PO BID [facility]; Protocol Last Admin: 02/07/24 21:29 Dose: 0.1 mg Documented By: DOLLY Enoxaparin Sodium (Enoxaparin Sodium 40 Mg/0.4 Ml Syringe) 40 mg SUBCUT Q24H [facility] Last Admin: 02/08/24 04:31 Dose: Not Given Documented By: DOLLY Non-Admin Reason: Patient Refused Hydroxyzine HCl (Hydroxyzine Hcl 50 Mg Tablet) 100 mg PO BEDTIME [facility] Last Admin: 02/07/24 21:29 Dose: 100 mg Documented By: DOLLY Vancomycin HCl 1,500 mg/ (Sodium Chloride) 500 mls @ 333.333 mls/hr IV Q12H [facility] Last Infusion: 02/08/24 06:20 Dose: Infused Documented By: DOLLY Ibuprofen (Ibuprofen 400 Mg Tablet) 400 mg PO TIDWM [facility] Last Admin: 02/07/24 18:11 Dose: Not Given Documented By: LAST Non-Admin Reason: Patient Refused Melatonin (Melatonin 3 Mg Tablet) 6 mg PO BEDTIME PRN PRN Reason: Insomnia Last Admin: 02/07/24 21:29 Dose: 6 mg Documented By: DOLLY Methadone HCl (Methadone Hcl 20 Mg/2 Ml Oral.Conc) 30 mg PO DAILY [facility] Last Admin: 02/07/24 08:26 Dose: 30 mg Documented By: LAST Nicotine (Nicotine 21 Mg Patch.Td24) 21 mg TRANSDERMA DAILY [facility] Last Admin: 02/07/24 08:34 Dose: Not Given Documented By: LAST Non-Admin Reason: Patient Refused Ondansetron HCl (Ondansetron Hcl 4 Mg/2 Ml Vial) 4 mg IVPUSH Q8H PRN PRN Reason: Nausea and Vomiting Oxycodone HCl (Oxycodone Hcl Immed Release 5 Mg Tablet) 5 mg PO Q6H PRN PRN Reason: Pain, Severe (Pain Scale 7-10) Last Admin: 02/08/24 04:30 Dose: 5 mg Documented By: DOLLY Pharmacy Consult (Consult Rx Vancomycin Dosing) 1 each MISCELLANE DAILY PRN PRN Reason: Consult order Sodium Chloride (0.9 % Sodium Chloride Flush 3 Ml Syringe) 3 ml IVFLUSH QSHIFT [facility] Last Admin: 02/07/24 21:37 Dose: 3 ml Documented By: DOLLY Labs 02/07/24 10:33 02/07/24 10:33 Labs: Laboratory Results - last 24 hr 02/07/24 02/07/24 10:33 14:00 MCV 95.9 MCH 31.4 MCHC 32.7 RDW 13.6 Plt Count 484 H MPV 8.3 L Absolute Nucleated RBC 0.000 Nucleated RBC % (auto) 0.0 Anion Gap 9 L Estim Creat Clear Calc 114.0 Estimated GFR > 60 Random Glucose 105 Calcium 9.2 Random Vancomycin 15.4 Microbiology Microbiology Results: Microbiology 02/03/24 01:13 Blood Culture - Final Blood - Venous No growth after 5 days. 06/11/24 05:51 Blood Culture - Preliminary Blood - Venous No growth after 48 hours. 02/05/24 05:51 Blood Culture - Preliminary Blood - Venous No growth after 48 hours. Procedures Date of Service Date of Service: 02/08/24 Progress Note: A&P Assessment and plan (1) Abscess of right thigh: Status: Acute Plan 38-year-old male patient status post incision and drainage of an abscess of the right leg, culture positive for MRSA. Dressings changed to dry sterile dressings rather than pink foam dressing. Packing removed. Will need dressing changes twice daily. Time Spent With Patient Time: Total time managing care of this patient today ____ minutes. Quality Stroke Does the patient have a stroke diagnosis?: No VTE Prior VTE?: No VTE Risk Level:: Medical - moderate - high VTE Device Contraindication: Treatment Not Indicated VTE Drug Contraindication: N/A - Med Ordered
[2024-02-08 08:34] LABS: Creatinine Clr Calc Pharmacy 131.4; Estimated Glomerular Filt Rate > 60
[2024-02-08] MEDS: Ibuprofen 400 MG TABLET PO ×3 (08:48→17:46)
[2024-02-08] MEDS: cloNIDine HCL 0.1 MG TABLET PO ×2 (08:49→22:32)
[2024-02-08] MEDS: buPROPion HCl XL 150 MG TAB.ER.24H PO (08:49)
[2024-02-08] MEDS: 0.9 % Sodium Chloride Flush 3 ML SYRINGE IVFLUSH ×2 (08:50→16:15)
[2024-02-08] MEDS: methADONE HCl 20 MG/2 ML ORAL.CONC 30 MG PO (08:51)
--- NOTE | 2024-02-08 11:13 | HO.PM.IMPN ---
Subjective Subjective Date of Service: 02/08/24 Interval History: seen and evaluated this morning wound still indurated , surgery did not feel the need for more drainage no fever or chills Negative repeat cultures Physical Exam Vital Signs: Vital Signs: Last Vital Signs Temp 97.0 F 02/08/24 07:38 Pulse 54 02/08/24 07:38 Resp 18 02/08/24 07:38 BP 119/65 02/08/24 07:38 Pulse Ox 99 02/08/24 07:38 O2 Del Method Room Air 02/08/24 07:38 BMI result Body Mass Index 21.1 Const: Other: Constitutional : Awake, interactive, not in distress Neck : Normal inspection, Supple Cardiovascular : RRR, no JVP, no lower extremity edema Respiratory : good bilateral air entry, no crackles, wheezes or rhonchi Gastrointestinal: soft, lax, Normal bowel sounds, Non tender Skin : Warm, Dry, large indurated right thigh wound with packing, indurated, pus drainage Neurological : Alert & oriented x3, No focal deficit Objective Data Active Medications Acetaminophen (Acetaminophen 325 Mg Tablet) 975 mg PO Q6H PRN PRN Reason: mild pain, headache or fever Last Admin: 02/07/24 21:28 Dose: 975 mg Documented By: DOLLY Albuterol Sulfate (Albuterol Sulfate 90 Mcg 8 Gm Inhaler) 2 puff INHALE QID PRN PRN Reason: wheezing Bupropion HCl (Bupropion Hcl Xl 150 Mg Tab.Er.24h) 150 mg PO DAILY [facility] Last Admin: 02/08/24 08:49 Dose: 150 mg Documented By: LAST Clonidine HCl (Clonidine Hcl 0.1 Mg Tablet) 0.1 mg PO BID [facility]; Protocol Last Admin: 02/08/24 08:49 Dose: 0.1 mg Documented By: LAST Enoxaparin Sodium (Enoxaparin Sodium 40 Mg/0.4 Ml Syringe) 40 mg SUBCUT Q24H [facility] Last Admin: 02/08/24 04:31 Dose: Not Given Documented By: DOLLY Non-Admin Reason: Patient Refused Hydroxyzine HCl (Hydroxyzine Hcl 50 Mg Tablet) 100 mg PO BEDTIME [facility] Last Admin: 02/07/24 21:29 Dose: 100 mg Documented By: DOLLY Vancomycin HCl 1,500 mg/ (Sodium Chloride) 500 mls @ 333.333 mls/hr IV Q12H [facility] Last Infusion: 02/08/24 06:20 Dose: Infused Documented By: DOLLY Ibuprofen (Ibuprofen 400 Mg Tablet) 400 mg PO TIDWM [facility] Last Admin: 02/08/24 08:48 Dose: 400 mg Documented By: LAST Melatonin (Melatonin 3 Mg Tablet) 6 mg PO BEDTIME PRN PRN Reason: Insomnia Last Admin: 02/07/24 21:29 Dose: 6 mg Documented By: DOLLY Methadone HCl (Methadone Hcl 20 Mg/2 Ml Oral.Conc) 30 mg PO DAILY [facility] Last Admin: 02/08/24 08:51 Dose: 30 mg Documented By: LAST Nicotine (Nicotine 21 Mg Patch.Td24) 21 mg TRANSDERMA DAILY [facility] Last Admin: 02/08/24 08:52 Dose: Not Given Documented By: LAST Non-Admin Reason: Patient Refused Ondansetron HCl (Ondansetron Hcl 4 Mg/2 Ml Vial) 4 mg IVPUSH Q8H PRN PRN Reason: Nausea and Vomiting Oxycodone HCl (Oxycodone Hcl Immed Release 5 Mg Tablet) 5 mg PO Q6H PRN PRN Reason: Pain, Severe (Pain Scale 7-10) Last Admin: 02/08/24 10:37 Dose: 5 mg Documented By: LAST Pharmacy Consult (Consult Rx Vancomycin Dosing) 1 each MISCELLANE DAILY PRN PRN Reason: Consult order Sodium Chloride (0.9 % Sodium Chloride Flush 3 Ml Syringe) 3 ml IVFLUSH QSHIFT [facility] Last Admin: 02/08/24 08:50 Dose: 3 ml Documented By: LAST Labs 02/07/24 10:33 02/08/24 07:48 Labs: Laboratory Results - last 24 hr 02/07/24 02/07/24 02/08/24 10:33 14:00 07:48 Hold Purple Top Anion Gap 9 L Estim Creat Clear Calc 114.0 131.4 Estimated GFR > 60 > 60 Random Glucose 105 Calcium 9.2 Random Vancomycin 15.4 02/08/24 08:01 Hold Purple Top SEE NOTE Anion Gap Estim Creat Clear Calc Estimated GFR Random Glucose Calcium Random Vancomycin Microbiology Microbiology Results: Microbiology 02/03/24 01:13 Blood Culture - Final Blood - Venous No growth after 5 days. 02/05/24 05:51 Blood Culture - Preliminary Blood - Venous No growth after 48 hours. 02/05/24 05:51 Blood Culture - Preliminary Blood - Venous No growth after 48 hours. Assessment and Plan (1) Staphylococcus aureus bacteremia: Status: Acute Plan 38M PMH mild intermittent asthma, polysubstance use disorder presented with fevers, erythema and pain of the right thigh Sepsis due to right thigh abscess and cellulitis complicated by MRSA bacteremia Continue IV vancomycin (will need to complete at SNF due to polysubstance dependence) negative repeat cultures, to place PICC line echo not reporting any vegetations Surgery removed packing, rec dress changing twice daily ID consult, 4 weeks IV Abx PICC line placement follow Vancomycin trough scrotal lump US scrotum showing 0.5 epidydmal cyst can be followed as outpatient Polysubstance dependence with withdrawal Addiction team following, continue methadone hiv and hcv negative Mild intermittent asthma P.r.n. bronchodilators DVT prophylaxis with Lovenox Full Code Reason for continued hospitalization: on IV antibiotics pending accepting facility Quality Stroke Does the patient have a stroke diagnosis?: No VTE Prior VTE?: No VTE Risk Level:: Medical - moderate - high VTE Device Contraindication: Treatment Not Indicated VTE Drug Contraindication: N/A - Med Ordered
--- NOTE | 2024-02-08 14:17 | HO.PICC ---
PICC Line Insertion NPICC Diagnosis: Right upper thigh redness Indication: chcf antibx Pertinent Labs:Reviewed Technique: Following informed consent including risks, benefits and alternatives and using sterile technique including cap and mask, sterile gown, glove and drape, the Left arm was prepped and draped in the usual sterile fashion of full barrier technique with [facility]. Following completion of [place] Protocol the skin and soft tissues were anesthetized with 1% Lidocaine plain. Using ultrasound guidance, Left brachial vein access was obtained on 2nd attempt. Over an 0.018 wire through peel-away sheath, a 4 FR PICC Single Lumen PASV line was positioned Catheter length is 42cm internal length, 0cm external length, for a total trimmed length of 42cm. The procedure was performed in Rm 272. Tip verification was performed by Miguel Martinez with Sherlock 3CG. Tip located in SVC. Ultrasound was used to document vein patency and for needle entry. A formal ultrasound picture and cardiac rhythm strip was recorded. Vascular Slip Cover Seamstress has released the line for use and it is currently dressed with a StatLock, Tegaderm, and CHG disc. Verification has been performed for blood return and line patency. Arm Circumference: 29cm Equipment: Energie Etiche PowerPicc Solo catheter with Sherlock 3CG Catheter Type: 4 FR PICC Single Lumen PASV Line Lot #: [id number]
--- NOTE | 2024-02-08 14:43 | PC.NURSE ---
Pt came back from Picc line placement. Phlebotomy in to draw labs. After cotton opener finished drawing labs, he stated that pt asked him if he could keep the tourniquet. Pt was told no.
--- NOTE | 2024-02-08 14:46 | MHC.CM.PN ---
MANDA [facility] [place] @ [place]. He will receive LT IV ABX as well as wound care and assessment. Patient will transport via BLS. Discharge is anticipated Sunday.
[2024-02-08 15:08] LABS: Vancomycin Random 16.3 mcg/mL (15-20)
[2024-02-08 15:15] VITALS: BP 119/75; PULSE 50; RESP 18; TEMP 36.4; O2SAT 99
--- NOTE | 2024-02-08 15:42 | HE.PHANOTE ---
Re Vancomycin Random from 02/07 @ 1439 = 16.3, within goal and SCr normalizing. Okay to continue same regimen for now. Projected AUC ~514. Next level due 02/09 @1400.
[2024-02-08] MEDS: vancomycin HCL 1,500 MG in 0.9 % Sodium Chloride 500 ML 333 MG IV (16:12)
[2024-02-08] MEDS: 0.9 % Sodium Chloride Flush 10 ML SYRINGE 5 ML IVFLUSH ×2 (16:14→22:35)
[2024-02-08 19:02] VITALS: BP 123/76; PULSE 53; RESP 18; TEMP 36.3; O2SAT 99
[2024-02-08] MEDS: hydrOXYzine HCL 50 MG TABLET 100 MG PO (22:32)
[2024-02-08] MEDS: Melatonin 3 MG TABLET 6 MG PO (22:33)
[2024-02-09 04:00] VITALS: BP 120/73; PULSE 57; RESP 16; TEMP 36.3; O2SAT 98
[2024-02-09] MEDS: oxyCODONE HCl Immed Release 5 MG TABLET PO ×3 (04:17→22:18)
[2024-02-09] MEDS: vancomycin HCL 1,500 MG in 0.9 % Sodium Chloride 500 ML 333.33 MG IV ×2 (04:21→15:39)
[2024-02-09 06:52] LABS: Creatinine Clr Calc Pharmacy 129.7; Estimated Glomerular Filt Rate > 60
--- NOTE | 2024-02-09 07:05 | HE.PHANOTE ---
RE JACQUELINEO CONTINUE CURRENT DOSE. SCR REMAINS STABLE. RANDOM DUE 02/09 @1400 [facility]
[2024-02-09 07:38] VITALS: BP 122/55; PULSE 52; RESP 16; TEMP 36.2; O2SAT 97
[2024-02-09 09:18] VITALS: BP 122/59
[2024-02-09] MEDS: buPROPion HCl XL 150 MG TAB.ER.24H PO ×2 (09:18→10:14)
[2024-02-09] MEDS: Ibuprofen 400 MG TABLET PO ×3 (09:18→17:05)
[2024-02-09] MEDS: Nicotine 21 MG PATCH.TD24 TRANSDERMA (09:18)
[2024-02-09] MEDS: cloNIDine HCL 0.1 MG TABLET PO ×2 (09:18→20:08)
[2024-02-09] MEDS: 0.9 % Sodium Chloride Flush 10 ML SYRINGE 5 ML IVFLUSH ×3 (09:19→20:22)
[2024-02-09] MEDS: 0.9 % Sodium Chloride Flush 3 ML SYRINGE IVFLUSH ×4 (09:19→20:20)
[2024-02-09] MEDS: methADONE HCl 20 MG/2 ML ORAL.CONC 30 MG PO (09:20)
--- NOTE | 2024-02-09 09:54 | HO.PM.IMPN ---
Subjective Subjective Date of Service: 02/09/24 Interval History: no fever tolerating ABX thigh pain controlled + remains open, draining pus depressed; no SI Review of Systems Review of Systems: Yes all other systems are reviewed and are negative Physical Exam Vital Signs: Vital Signs: Last Vital Signs Temp 97.2 F 02/09/24 07:38 Pulse 52 02/09/24 07:38 Resp 16 02/09/24 07:38 BP 122/59 L 02/09/24 09:18 Pulse Ox 97 02/09/24 07:38 O2 Del Method Room Air 02/09/24 07:38 BMI result Body Mass Index 21.1 Gen: in no acute distress HEENT: sclera anicteric, moist mucus membranes Neck: supple Lungs: clear to auscultation bilaterally Heart: regular rate and rhythm, no murmurs Abd: soft, non-tender, non-distended Ext: no edema, PICC L brachial Skin: warm/well-perfused, R thigh s/p I+D, wound open and draining with no residual fluctuance Neuro: alert and oriented x3, no focal findings Psych: appropriate affect Objective Data Active Medications Acetaminophen (Acetaminophen 325 Mg Tablet) 975 mg PO Q6H PRN PRN Reason: mild pain, headache or fever Last Admin: 02/07/24 21:28 Dose: 975 mg Documented By: DOLLY Albuterol Sulfate (Albuterol Sulfate 90 Mcg 8 Gm Inhaler) 2 puff INHALE QID PRN PRN Reason: wheezing Clonidine HCl (Clonidine Hcl 0.1 Mg Tablet) 0.1 mg PO BID [facility]; Protocol Last Admin: 02/09/24 09:18 Dose: 0.1 mg Documented By: MILAGROS Enoxaparin Sodium (Enoxaparin Sodium 40 Mg/0.4 Ml Syringe) 40 mg SUBCUT Q24H [facility] Last Admin: 02/09/24 04:57 Dose: Not Given Documented By: DOLLY Non-Admin Reason: Patient Refused Hydroxyzine HCl (Hydroxyzine Hcl 50 Mg Tablet) 100 mg PO BEDTIME [facility] Last Admin: 02/08/24 22:32 Dose: 100 mg Documented By: DOLLY Vancomycin HCl 1,500 mg/ (Sodium Chloride) 500 mls @ 333.333 mls/hr IV Q12H [facility] Last Infusion: 02/09/24 06:00 Dose: Infused Documented By: DOLLY Ibuprofen (Ibuprofen 400 Mg Tablet) 400 mg PO TIDWM [facility] Last Admin: 02/09/24 09:18 Dose: 400 mg Documented By: MILAGROS Melatonin (Melatonin 3 Mg Tablet) 6 mg PO BEDTIME PRN PRN Reason: Insomnia Last Admin: 02/08/24 22:33 Dose: 6 mg Documented By: DOLLY Methadone HCl (Methadone Hcl 20 Mg/2 Ml Oral.Conc) 30 mg PO DAILY [facility] Last Admin: 02/09/24 09:20 Dose: 30 mg Documented By: MILAGROS Nicotine (Nicotine 21 Mg Patch.Td24) 21 mg TRANSDERMA DAILY [facility] Last Admin: 02/09/24 09:18 Dose: 21 mg Documented By: MILAGROS Ondansetron HCl (Ondansetron Hcl 4 Mg/2 Ml Vial) 4 mg IVPUSH Q8H PRN PRN Reason: Nausea and Vomiting Oxycodone HCl (Oxycodone Hcl Immed Release 5 Mg Tablet) 5 mg PO Q6H PRN PRN Reason: Pain, Severe (Pain Scale 7-10) Last Admin: 02/09/24 04:17 Dose: 5 mg Documented By: DOLLY Pharmacy Consult (Consult Rx Vancomycin Dosing) 1 each MISCELLANE DAILY PRN PRN Reason: Consult order Sodium Chloride (0.9 % Sodium Chloride Flush 3 Ml Syringe) 3 ml IVFLUSH QSHIFT [facility] Last Admin: 02/09/24 09:19 Dose: 3 ml Documented By: MILAGROS Sodium Chloride (0.9 % Sodium Chloride Flush 10 Ml Syringe) 5 ml IVFLUSH TID [facility] Last Admin: 02/09/24 09:19 Dose: 5 ml Documented By: MILAGROS Labs 02/07/24 10:33 02/09/24 05:54 Labs: Laboratory Results - last 24 hr 02/08/24 02/09/24 14:39 05:54 Hold Purple Top SEE NOTE Estim Creat Clear Calc 129.7 Estimated GFR > 60 Random Vancomycin 16.3 Assessment and Plan (1) Staphylococcus aureus bacteremia: Status: Acute Plan d7 38yo M with mild intermittent asthma, polysubstance abuse presenting with fever + R thigh abscess found to have sepsis due to MRSA bacteremia + purulent cellulitis, I+D done in ED 02/02 then admitted to medical-surgical unit sepsis due to MRSA bacteremia with purulent cellultiis - IV vancomycin, 4 wk from clear BCx date of 02/04, so end date of 03/04, PICC placed, TTE without vegetations, Surgery removed packing yesterday and recommends changing dressing bid - repeat vancomycin trough + SCr tomorrow; monitor weekly upon discharge polysubstance dependence with withdrawal - continue methadone as per Addiction Medicine - HCV/HIV negative, screen HBV epidydimal cyst - outpt Uro consult, not urgent mood disorder - increase bupropion mild intermittent asthma not in acute exac - prn albuterol VTE ppx - LMWH dispo - STR for prolonged IV ABX In my clinical judgment, the patient requires continued inpatient hospitalization for the following reasons: placement, IV ABX Total time managing care of this patient today: 45 minutes. Quality Stroke Does the patient have a stroke diagnosis?: No VTE Prior VTE?: No VTE Risk Level:: Medical - moderate - high VTE Device Contraindication: Treatment Not Indicated VTE Drug Contraindication: N/A - Med Ordered
[2024-02-09 16:00] VITALS: BP 136/93; PULSE 69; RESP 18; TEMP 36.1; O2SAT 100
[2024-02-09 19:11] VITALS: BP 155/86; PULSE 60; RESP 18; TEMP 36.6; O2SAT 97
[2024-02-09] MEDS: hydrOXYzine HCL 50 MG TABLET 100 MG PO (20:08)
[2024-02-09] MEDS: diphenhydrAMINE HCL 25 MG CAPSULE PO (22:18)
[2024-02-09 23:15] VITALS: RESP 16
[2024-02-10] VITALS (7 sets, daily range): BP systolic 115–156; BP diastolic 61–90; PULSE 51–61; RESP 16–18; TEMP 36.4–36.8; O2SAT 98–100
[2024-02-10] MEDS: vancomycin HCL 1,500 MG in 0.9 % Sodium Chloride 500 ML 333.33 MG IV ×2 (03:42→16:07)
[2024-02-10] MEDS: oxyCODONE HCl Immed Release 5 MG TABLET PO ×2 (03:48→21:15)
[2024-02-10] MEDS: Ibuprofen 400 MG TABLET PO ×3 (08:13→16:14)
[2024-02-10] MEDS: buPROPion HCl XL 300 MG TAB.ER.24H PO (08:14)
[2024-02-10] MEDS: methADONE HCl 20 MG/2 ML ORAL.CONC 30 MG PO (08:14)
[2024-02-10] MEDS: cloNIDine HCL 0.1 MG TABLET PO ×2 (08:14→21:10)
[2024-02-10] MEDS: Nicotine 21 MG PATCH.TD24 TRANSDERMA (08:14)
[2024-02-10] MEDS: 0.9 % Sodium Chloride Flush 10 ML SYRINGE 5 ML IVFLUSH ×3 (08:15→21:11)
--- NOTE | 2024-02-10 09:33 | P.PNIM_ITS ---
Subjective Subjective Date of Service: 02/10/24 Interval History: pain controlled no fever Review of Systems Review of Systems: Yes all other systems are reviewed and are negative Physical Exam 2 Vital Signs: Vital Signs: Last Vital Signs Temp 97.5 F 02/10/24 07:10 Pulse 51 02/10/24 07:10 Resp 18 02/10/24 07:10 BP 122/81 02/10/24 08:14 Pulse Ox 99 02/10/24 07:10 O2 Del Method Room Air 02/10/24 07:10 BMI result Body Mass Index 21.1 Gen: in no acute distress HEENT: sclera anicteric, moist mucus membranes Neck: supple Lungs: clear to auscultation bilaterally Heart: regular rate and rhythm, no murmurs Abd: soft, non-tender, non-distended Ext: no edema, PICC L brachial Skin: warm/well-perfused, R thigh s/p I+D, wound open and draining with no residual fluctuance Neuro: alert and oriented x3, no focal findings Psych: appropriate affect Objective Data Active Medications Acetaminophen (Acetaminophen 325 Mg Tablet) 975 mg PO Q6H PRN PRN Reason: mild pain, headache or fever Last Admin: 02/07/24 21:28 Dose: 975 mg Documented By: DOLLY Albuterol Sulfate (Albuterol Sulfate 90 Mcg 8 Gm Inhaler) 2 puff INHALE QID PRN PRN Reason: wheezing Bupropion HCl (Bupropion Hcl Xl 300 Mg Tab.Er.24h) 300 mg PO DAILY [facility] Last Admin: 02/10/24 08:14 Dose: 300 mg Documented By: MILAGROS Clonidine HCl (Clonidine Hcl 0.1 Mg Tablet) 0.1 mg PO BID [facility]; Protocol Last Admin: 02/10/24 08:14 Dose: 0.1 mg Documented By: MILAGROS Enoxaparin Sodium (Enoxaparin Sodium 40 Mg/0.4 Ml Syringe) 40 mg SUBCUT Q24H [facility] Last Admin: 02/10/24 04:22 Dose: Not Given Documented By: FREDO Non-Admin Reason: Patient Refused Hydroxyzine HCl (Hydroxyzine Hcl 50 Mg Tablet) 100 mg PO BEDTIME [facility] Last Admin: 02/09/24 20:08 Dose: 100 mg Documented By: BAKARI Vancomycin HCl 1,500 mg/ (Sodium Chloride) 500 mls @ 333.333 mls/hr IV Q12H [facility] Last Infusion: 02/10/24 05:31 Dose: Infused Documented By: FREDO Ibuprofen (Ibuprofen 400 Mg Tablet) 400 mg PO TIDWM [facility] Last Admin: 02/10/24 08:13 Dose: 400 mg Documented By: MILAGROS Melatonin (Melatonin 3 Mg Tablet) 6 mg PO BEDTIME PRN PRN Reason: Insomnia Last Admin: 02/08/24 22:33 Dose: 6 mg Documented By: DOLLY Methadone HCl (Methadone Hcl 20 Mg/2 Ml Oral.Conc) 30 mg PO DAILY [facility] Last Admin: 02/10/24 08:14 Dose: 30 mg Documented By: MILAGROS Nicotine (Nicotine 21 Mg Patch.Td24) 21 mg TRANSDERMA DAILY [facility] Last Admin: 02/10/24 08:14 Dose: 21 mg Documented By: MILAGROS Ondansetron HCl (Ondansetron Hcl 4 Mg/2 Ml Vial) 4 mg IVPUSH Q8H PRN PRN Reason: Nausea and Vomiting Oxycodone HCl (Oxycodone Hcl Immed Release 5 Mg Tablet) 5 mg PO Q6H PRN PRN Reason: Pain, Severe (Pain Scale 7-10) Last Admin: 02/10/24 03:48 Dose: 5 mg Documented By: FREDO Pharmacy Consult (Consult Rx Vancomycin Dosing) 1 each MISCELLANE DAILY PRN PRN Reason: Consult order Sodium Chloride (0.9 % Sodium Chloride Flush 3 Ml Syringe) 3 ml IVFLUSH QSHIFT [facility] Last Admin: 02/09/24 20:20 Dose: 3 ml Documented By: BAKARI Sodium Chloride (0.9 % Sodium Chloride Flush 10 Ml Syringe) 5 ml IVFLUSH TID [facility] Last Admin: 02/10/24 08:15 Dose: 5 ml Documented By: MILAGROS Labs 02/07/24 10:33 02/09/24 05:54 Microbiology Microbiology Results: Microbiology 02/05/24 05:51 Blood Culture - Final Blood - Venous No growth after 5 days. 02/05/24 05:51 Blood Culture - Final Blood - Venous No growth after 5 days. Assessment and Plan (1) Staphylococcus aureus bacteremia: Status: Acute Plan d8 38yo M with mild intermittent asthma, polysubstance abuse presenting with fever + R thigh abscess found to have sepsis due to MRSA bacteremia + purulent cellulitis, I+D done in ED 02/02 then admitted to medical-surgical unit sepsis due to MRSA bacteremia with purulent cellultiis - IV vancomycin, 4 wk from clear BCx date of 02/04 [thus end date of 03/04], PICC placed 02/07, TTE 02/03 without vegetations, Surgery removed packing 02/07 and recommends dry 4x4 gauze with paper tape, changed bid - repeat vancomycin trough + SCr this afternoon; monitor weekly upon discharge polysubstance dependence with withdrawal - continue methadone as per Addiction Medicine - HCV/HIV negative, screen for HBV 0.5 cm epidydimal cyst - outpt Uro consult, not urgent mood disorder - increased bupropion 150->300 mg daily 02/08 mild intermittent asthma not in acute exac - prn albuterol VTE ppx - LMWH dispo - STR for prolonged IV ABX In my clinical judgment, the patient requires continued inpatient hospitalization for the following reasons: placement, IV ABX Total time managing care of this patient today: 35 minutes. Quality Stroke Does the patient have a stroke diagnosis?: No VTE Prior VTE?: No VTE Risk Level:: Medical - moderate - high VTE Device Contraindication: Treatment Not Indicated VTE Drug Contraindication: N/A - Med Ordered
--- NOTE | 2024-02-10 09:36 | PM.DS ---
DS: Providers Provider Date of admission: 02/03/24 04:12 Primary care physician: None Physician Consults: 02/03/24 04:13 Addiction Medicine Routine Consulting Provider: Addiction Covering Reason for consultation: polysusbstance use disorder 02/03/24 15:52 Consult to Wound Care Routine Reason for consultation: right thigh wound 02/04/24 09:09 Consult to Infectious Diseases Routine Consulting Provider: [facility] Reason for consultation: staph aureus bacteremia 02/06/24 09:39 Consult to General Surgery Routine Consulting Provider: [facility] General Surgeons Reason for consultation: Right thigh wound , needs drainage? DS: Diagnosis Discharge Diagnosis (1) Staphylococcus aureus bacteremia: Status: Acute Physical Exam Vital Signs: Vital Signs: Last Vital Signs Temp 97.5 F 02/10/24 07:10 Pulse 51 02/10/24 07:10 Resp 18 02/10/24 07:10 BP 122/81 02/10/24 08:14 Pulse Ox 99 02/10/24 07:10 O2 Del Method Room Air 02/10/24 07:10 BMI result Body Mass Index 21.1 Discharge Plan Discharge Referrals: Physician,None [Primary Care Provider] - 1 Week Discharge Medications: No Action hydroxyzine pamoate 100 mg capsule 100 mg PO BEDTIME clonidine HCl 0.1 mg tablet 0.1 mg PO BID albuterol sulfate [Ventolin HFA] 90 mcg/actuation HFA aerosol inhaler 2 puff inhalation QID PRN (Reason: wheezing) bupropion HCl 150 mg tablet extended release 24 hr 150 mg PO QAM Print Language: Czech
[2024-02-10 09:48] LABS: Creatinine Clr Calc Pharmacy 119.3; Estimated Glomerular Filt Rate > 60
--- NOTE | 2024-02-10 11:13 | P.DS_ITS ---
DS: Providers Provider Date of Service: 02/11/24 Date of admission: 02/03/24 04:12 Primary care physician: None Physician Consults: 02/03/24 04:13 Addiction Medicine Routine Consulting Provider: Addiction Covering Reason for consultation: polysusbstance use disorder 02/03/24 15:52 Consult to Wound Care Routine Reason for consultation: right thigh wound 02/04/24 09:09 Consult to Infectious Diseases Routine Consulting Provider: [facility] Reason for consultation: staph aureus bacteremia 02/06/24 09:39 Consult to General Surgery Routine Consulting Provider: [facility] Sur[facility] Reason for consultation: Right thigh wound , needs drainage? DS: Diagnosis Discharge Diagnosis (1) MRSA bacteremia: Status: Acute (2) Cellulitis of right thigh: Status: Acute (3) Abscess of right thigh: Status: Acute (4) Opioid use disorder: Status: Acute (5) Sepsis: Status: Acute DS: Summary Hospital Course Hospital Course: From the history and physical by the admitting hospitalist, Ayaan Neumann MD, 02/03/24: This is a 38-year-old male with pertinent history of mild intermittent asthma not on home oxygen, Polysubstance use disorder who presents to the emergency department for concerns of right thigh infection. Patient states this has been ongoing for a while. Initially he noticed red spot on his right upper thigh with subsequently became larger. It is associated with warmth and is painful to touch. Patient has difficulty walking and hence presented to the ER on the day of presentation. He denies history of skin infections in the past. Endorses generalized malaise and fatigability. Patient does endorse that he picks at his skin. Smoked fentanyl mixed with crack cocaine on the day of presentation. No fever, chills, chest discomfort, palpitations, shortness of breath, abdominal pain, changes in urinary or bowel habits. In the emergency department, patient was found to be septic. Right thigh abscess drained by ER provider with foul-smelling purulent drainage Hospital course: 38yo M with mild intermittent asthma, polysubstance abuse, and depression presented to the [facility] ED with fever + R thigh abscess; found to have sepsis due to MRSA bacteremia + purulent cellulitis; I+D done in ED 02/02 then admitted to medical-surgical unit. Echocardiogram negative for vegetations and blood cultures cleared as of 6/11. Infectious Disease recommended 4 weeks of IV vancomycin, thus end date of 03/04. PICC placed 02/07. Abscess packing removed 02/07 and recommend bid dressing changes with dry 4x4 gauze + paper tape. Weekly vancomycin trough and creatinine while on vancomycin IV. Methadone continued. HCV/HIV screen negative. Incidental 0.5 cm epididymal cyst that can followed with an outpatient Urology consult. For depression, bupropion dose increased from 150 to 300 mg daily. He was discharged to [facility] for IV antibiotic treatment of Vancomycin with a plan to finish by 03/04/2024. Discharge plan IV vancomycin via PICC until 03/04/24 then remove PICC weekly SCr + vancomycin trough while on vancomycin continue methadone avoid drug use Recommend follow-up ENT evaluation to guide further management. Time Attestation Discharge Coordination Time (in mins): 35 Quality: Safe Use of Opioids Does Pt have an Active Cancer Diagnosis on the Problem List?: No Quality: Stroke Does the patient have a stroke diagnosis?: No Physical Exam Vital Signs: Vital Signs: Last Vital Signs Temp 97.5 F 02/10/24 07:10 Pulse 51 02/10/24 07:10 Resp 18 02/10/24 07:10 BP 122/81 02/10/24 08:14 Pulse Ox 99 02/10/24 07:10 O2 Del Method Room Air 02/10/24 07:10 BMI result Body Mass Index 21.1 Gen: in no acute distress HEENT: sclera anicteric, moist mucus membranes Neck: supple Lungs: clear to auscultation bilaterally Heart: regular rate and rhythm, no murmurs Abd: soft, non-tender, non-distended Ext: no edema, PICC L brachial Skin: warm/well-perfused, R thigh s/p I+D, wound open and draining with no residual fluctuance Neuro: alert and oriented x3, no focal findings Psych: appropriate affect DS: Data Data Completed and Pending Completed studies during hospitalization [Text1]: Laboratory Results WBC 9.3 X10*3/uL (4.8-10.8) 02/07/24 10:33 RBC 3.95 X10*6/uL (4.60-5.80) L 02/07/24 10:33 Hgb 12.4 g/dl (14.0-18.0) L 02/07/24 10:33 Hct 37.9 % (42.0-52.0) L 02/07/24 10:33 MCV 95.9 fL (80.0-98.0) 02/07/24 10:33 MCH 31.4 pg (27.0-33.0) 02/07/24 10:33 MCHC 32.7 g/dl (31.0-36.0) 02/07/24 10:33 RDW 13.6 % (11.0-16.0) 02/07/24 10:33 Plt Count 484 X10*3/uL (160-400) H 02/07/24 10:33 MPV 8.3 fL (9.4-12.4) L 02/07/24 10:33 Immature Gran % (Auto) 1.1 % (0.0-0.4) H 02/03/24 06:00 Neut % (Auto) 72.4 % (45-73) 02/03/24 06:00 Lymph % (Auto) 14.7 % (20-40) L 02/03/24 06:00 Coleman % (Auto) 11.2 % (2-11) H 02/03/24 06:00 Eos % (Auto) 0.4 % (0-4) 02/03/24 06:00 Baso % (Auto) 0.2 % (0-2) 02/03/24 06:00 Lymph # (Auto) 2.5 X10*3/uL (1.2-4.9) 02/03/24 06:00 Coleman # (Auto) 1.9 X10*3/uL (0.1-1.2) H 02/03/24 06:00 Eos # (Auto) 0.1 X10*3/uL (0.0-0.4) 02/03/24 06:00 Baso # (Auto) 0.0 X10*3/uL (0.0-0.2) 02/03/24 06:00 Abs Immat Gran (auto) 0.18 X10*3/uL (0.00-0.03) H 02/03/24 06:00 Absolute Neuts (auto) 12.3 x10*3/uL (2.0-8.3) H 02/03/24 06:00 Absolute Nucleated RBC 0.000 X10*3/uL (0.0-0.012) 02/07/24 10:33 Nucleated RBC % (auto) 0.0 /100WBC (0.0-0.2) 02/07/24 10:33 Smear Tech's Comments VERIFIED 02/03/24 06:00 ESR 27 MM/HR (0-15) H 02/03/24 01:13 Hold Purple Top SEE NOTE 02/09/24 05:54 Sodium 139 mmol/L (135-145) 02/07/24 10:33 Potassium 4.2 mmol/L (3.3-5.1) 02/07/24 10:33 Chloride 102 mmol/L (96-108) 02/07/24 10:33 Carbon Dioxide 32 mmol/L (22-29) H 02/07/24 10:33 Anion Gap 9 (12-20) L 02/07/24 10:33 BUN 7 mg/dL (9-16) L 02/07/24 10:33 Creatinine 0.87 mg/dL (0.5-1.4) 02/10/24 09:20 Estim Creat Clear Calc 119.3 02/10/24 09:20 Estimated GFR > 60 02/10/24 09:20 Random Glucose 105 mg/dL (60-115) 02/07/24 10:33 Fasting Glucose 114 mg/dL (60-99) H 02/05/24 05:51 Lactic Acid 0.7 mmol/L (0.5-2.0) 02/03/24 06:31 Calcium 9.2 mg/dL (8.4-10.2) 02/07/24 10:33 Total Bilirubin 0.2 mg/dL (0.0-1.0) 02/03/24 01:13 AST 18 U/L (5-37) 02/03/24 01:13 ALT 13 U/L (0-40) 02/03/24 01:13 Alkaline Phosphatase 72 U/L (39-117) 02/03/24 01:13 C-Reactive Protein 8.24 mg/dL (< or = 0.50) H 02/03/24 01:13 Total Protein 7.5 g/dL (6.5-8.0) 02/03/24 01:13 Albumin 4.0 g/dL (3.5-5.0) 02/03/24 01:13 Vancomycin Trough 8.0 mcg/mL (10.0-20.0) L 02/04/24 14:34 Random Vancomycin 16.3 mcg/mL (15-20) 02/08/24 14:39 Urine Opiates Screen POSITIVE (Not Detect) H 02/03/24 05:58 Ur Buprenorphine Scrn Not Detected ng/mL (Not Detect) 02/03/24 05:58 Ur Oxycodone Screen Not Detected ng/mL (Not Detect) 02/03/24 05:58 Urine Methadone Screen Not Detected ng/mL (Not Detect) 02/03/24 05:58 Urine Fentanyl Screen POSITIVE (Not Detect) H 02/03/24 05:58 Ur Barbiturates Screen Not Detected (Not Detect) 02/03/24 05:58 Ur Phencyclidine Scrn Not Detected (Not Detect) 02/03/24 05:58 Ur Amphetamines Screen Not Detected (Not Detect) 02/03/24 05:58 U Benzodiazepines Scrn Not Detected (Not Detect) 02/03/24 05:58 Urine Cocaine Screen POSITIVE (Not Detect) H 02/03/24 05:58 U Marijuana (THC) Screen POSITIVE (Not Detect) H 02/03/24 05:58 Hepatitis C Ab (EIA) Nonreactive (Nonreactive) 02/05/24 05:51 HIV 1&2 Ab/P24 Ag 4thGn Nonreactive (Nonreactive) 02/05/24 05:[address] 02/03/24 04:07 IMPRESSION: 1. Marked skin thickening and subjacent subcutaneous fat stranding of the right anterolateral proximal thigh, in keeping with the provided history of skin/soft tissue infection. No discrete, rim-enhancing fluid collection identified or evidence of extension into the thigh musculature/osseous involvement. 2. Small, 2 cm focus of subcutaneous packing material centered near the location of greatest skin thickening, likely correlates to location of recent drainage. 3. Mildly enlarged right inguinal lymph nodes, likely reactive. Scrotum Ultrasound 02/04/24 15:18 IMPRESSION: 1. 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 2. A 0.5 cm cyst in the right epididymal head. 3. A small echogenic focus in the left scrotum may represent a scrotal colin. This study was presented today February 05, 2024 for interpretation. Stat results provided at this time as requested by referring provider. TTE 02/04/24 - The left ventricular systolic function is normal. The calculated ejection fraction is 61% by biplane method. - No obvious valvular pathology seen on this study. - There is mild dilatation of the ascending aorta measuring 3.60 cm. - Long, linear structure in sinus of valsalva (1.1cm), possibly aortic plaque. Discharge Plan Discharge Anticipated Discharge Date/Time: 02/11/24 16:36 Patient Disposition: [facility] Discharge Diagnosis: sepsis due to MRSA bacteremia with purulent cellulitis/abscess of thigh Referrals: [facility] [Provider Group] - 1 Week [facility] [Outside] - 1 Week Torrey Silva [Physician] - 1 Week (he possibility of chronic otomastoiditis and an underlying cholesteatoma cannot be ruled out) PhysicianLuis [Primary Care Provider] - 1 Week Discharge Medications: New vancomycin 1.5 gram recon soln 1.5 g IV Q12H nicotine 21 mg/24 hr Patch 24 Hour 21 mg transdermal DAILY Qty: 30 0RF acetaminophen 325 mg Tablet 975 mg PO Q6H PRN (Reason: mild pain, headache or fever) Qty: 1 0RF methadone [Methadose] 10 mg/mL Concentrate 30 mg PO DAILY Qty: 1 0RF Rx Instructions: Partial Fill upon patient request. oxycodone 5 mg Tablet 5 mg PO Q8H PRN (Reason: Pain, Severe (Pain Scale 7-10)) Qty: 10 0RF Rx Instructions: Partial Fill upon patient request. bupropion HCl 300 mg Tablet Extended Release 24 Hr 300 mg PO DAILY Qty: 1 0RF hydroxyzine HCl 25 mg Tablet 25 mg PO Q8H PRN (Reason: Anxiety) Qty: 30 0RF Continued hydroxyzine pamoate 100 mg capsule 100 mg PO BEDTIME clonidine HCl 0.1 mg tablet 0.1 mg PO BID albuterol sulfate [Ventolin HFA] 90 mcg/actuation HFA aerosol inhaler 2 puff inhalation QID PRN (Reason: wheezing) Discontinued bupropion HCl 150 mg tablet extended release 24 hr 150 mg PO QAM Discharge Orders: Discharge Order (Routine); Ordered 02/15/24 Ordered By: Madeline Martínez Diet: Advance to usual diet Activity on Discharge: As tolerated Stand Alone Forms: Patient Portal Discharge page Print Language: Prydeinig Care Plan Goals: IV vancomycin via PICC until 03/04/24 then remove PICC weekly SCr + vancomycin trough while on vancomycin continue methadone avoid drug use Recommend follow-up ENT evaluation to guide further management. establish primary care [facility] Concerns: sepsis due to MRSA bacteremia with purulent cellulitis/abscess of thigh Plan of Treatment: Read below Assessment: See Discharge Summary. Discharge Date/Time: 02/15/24 13:45
--- NOTE | 2024-02-10 11:49 | PC.NURSE ---
Pt states he changed his own dressing this AM, this RN educated pt on reasons why staff nurse should participate in dressing changes to visualize/assess the wound and use sterile technique. Pt states he changes his dressing all the time , reinforcement needed with education.
[2024-02-10] MEDS: hydrOXYzine HCL 25 MG TABLET PO (12:39)
[2024-02-10 14:50] LABS: Vancomycin Random 15.2 mcg/mL (15-20)
[2024-02-10] MEDS: 0.9 % Sodium Chloride Flush 3 ML SYRINGE IVFLUSH (16:07)
[2024-02-10] MEDS: hydrOXYzine HCL 50 MG TABLET 100 MG PO (21:11)
[2024-02-11 02:47] VITALS: BP 115/76; PULSE 56; RESP 16; TEMP 36.3; O2SAT 96
[2024-02-11 03:42] LABS: HBc Num1 0.11 S/CO (0.00-0.79); HBsAGNum1 0.27 S/CO (0.00-0.99); Hepatitis B Core Antibody Nonreactive (Nonreactive); Hepatitis B Surface Antigen Negative (Negative); ~Hepatitis B Surface Antibody NONREACTIVE (Nonreactive)
[2024-02-11] MEDS: vancomycin HCL 1,500 MG in 0.9 % Sodium Chloride 500 ML 333.33 MG IV ×2 (03:51→16:26)
[2024-02-11] MEDS: oxyCODONE HCl Immed Release 5 MG TABLET PO ×2 (03:56→16:26)
[2024-02-11 05:55] LABS: Creatinine Clr Calc Pharmacy 120.7; Estimated Glomerular Filt Rate > 60
[2024-02-11 07:37] VITALS: BP 134/91; PULSE 54; RESP 16; TEMP 36.3; O2SAT 100
[2024-02-11] MEDS: Ibuprofen 400 MG TABLET PO ×3 (08:31→16:26)
[2024-02-11 08:32] VITALS: BP 134/91
[2024-02-11] MEDS: buPROPion HCl XL 300 MG TAB.ER.24H PO (08:32)
[2024-02-11] MEDS: cloNIDine HCL 0.1 MG TABLET PO ×2 (08:32→20:43)
[2024-02-11] MEDS: methADONE HCl 20 MG/2 ML ORAL.CONC 30 MG PO (08:32)
[2024-02-11] MEDS: 0.9 % Sodium Chloride Flush 10 ML SYRINGE 5 ML IVFLUSH ×3 (08:33→23:17)
[2024-02-11] MEDS: Nicotine 21 MG PATCH.TD24 TRANSDERMA (08:33)
--- NOTE | 2024-02-11 08:50 | PC.NURSE ---
Pt stated to Primary RN today that he fell in the shower. Upon interview pt stated that he did not fall, my left leg got weak but I didn't hit the floor while in the shower. (02/09) This was not reported to staff yesterday.
--- NOTE | 2024-02-11 10:17 | HO.PM.IMPN ---
Subjective Subjective Date of Service: 02/11/24 Interval History: reports feeling weak, falling without injury Physical Exam Vital Signs: Vital Signs: Last Vital Signs Temp 97.4 F 02/11/24 07:37 Pulse 54 02/11/24 07:37 Resp 16 02/11/24 07:37 BP 134/91 H 02/11/24 08:32 Pulse Ox 100 02/11/24 07:37 O2 Del Method Room Air 02/11/24 07:37 BMI result Body Mass Index 21.1 Gen: in no acute distress HEENT: sclera anicteric, moist mucus membranes Neck: supple Lungs: clear to auscultation bilaterally Heart: regular rate and rhythm, no murmurs Abd: soft, non-tender, non-distended Ext: no edema, PICC L brachial Skin: warm/well-perfused, R thigh s/p I+D, wound open and draining with no residual fluctuance Neuro: alert and oriented x3, no focal findings Psych: appropriate affect Objective Data Active Medications Acetaminophen (Acetaminophen 325 Mg Tablet) 975 mg PO Q6H PRN PRN Reason: mild pain, headache or fever Last Admin: 02/07/24 21:28 Dose: 975 mg Documented By: DOLLY Albuterol Sulfate (Albuterol Sulfate 90 Mcg 8 Gm Inhaler) 2 puff INHALE QID PRN PRN Reason: wheezing Bupropion HCl (Bupropion Hcl Xl 300 Mg Tab.Er.24h) 300 mg PO DAILY [facility] Last Admin: 02/11/24 08:32 Dose: 300 mg Documented By: CHUY Clonidine HCl (Clonidine Hcl 0.1 Mg Tablet) 0.1 mg PO BID [facility]; Protocol Last Admin: 02/11/24 08:32 Dose: 0.1 mg Documented By: CHUY Enoxaparin Sodium (Enoxaparin Sodium 40 Mg/0.4 Ml Syringe) 40 mg SUBCUT Q24H [facility] Last Admin: 02/11/24 04:59 Dose: Not Given Documented By: OTIS Non-Admin Reason: Patient Refused Hydroxyzine HCl (Hydroxyzine Hcl 50 Mg Tablet) 100 mg PO BEDTIME [facility] Last Admin: 02/10/24 21:11 Dose: 100 mg Documented By: OTIS Hydroxyzine HCl (Hydroxyzine Hcl 25 Mg Tablet) 25 mg PO Q8H PRN PRN Reason: Anxiety Last Admin: 02/10/24 12:39 Dose: 25 mg Documented By: MILAGROS Vancomycin HCl 1,500 mg/ (Sodium Chloride) 500 mls @ 333.333 mls/hr IV Q12H [facility] Last Infusion: 02/11/24 05:22 Dose: Infused Documented By: OTIS Ibuprofen (Ibuprofen 400 Mg Tablet) 400 mg PO TIDWM [facility] Last Admin: 02/11/24 08:31 Dose: 400 mg Documented By: CHUY Melatonin (Melatonin 3 Mg Tablet) 6 mg PO BEDTIME PRN PRN Reason: Insomnia Last Admin: 02/08/24 22:33 Dose: 6 mg Documented By: DOLLY Methadone HCl (Methadone Hcl 20 Mg/2 Ml Oral.Conc) 30 mg PO DAILY [facility] Last Admin: 02/11/24 08:32 Dose: 30 mg Documented By: CHUY Nicotine (Nicotine 21 Mg Patch.Td24) 21 mg TRANSDERMA DAILY [facility] Last Admin: 02/11/24 08:33 Dose: 21 mg Documented By: CHUY Ondansetron HCl (Ondansetron Hcl 4 Mg/2 Ml Vial) 4 mg IVPUSH Q8H PRN PRN Reason: Nausea and Vomiting Oxycodone HCl (Oxycodone Hcl Immed Release 5 Mg Tablet) 5 mg PO Q6H PRN PRN Reason: Pain, Severe (Pain Scale 7-10) Last Admin: 02/11/24 03:56 Dose: 5 mg Documented By: OTIS Pharmacy Consult (Consult Rx Vancomycin Dosing) 1 each MISCELLANE DAILY PRN PRN Reason: Consult order Sodium Chloride (0.9 % Sodium Chloride Flush 3 Ml Syringe) 3 ml IVFLUSH QSHIFT [facility] Last Admin: 02/11/24 08:39 Dose: Not Given Documented By: CHUY Non-Admin Reason: Given as 5mL per MAR. Sodium Chloride (0.9 % Sodium Chloride Flush 10 Ml Syringe) 5 ml IVFLUSH TID [facility] Last Admin: 02/11/24 08:33 Dose: 5 ml Documented By: CHUY Labs 02/07/24 10:33 02/11/24 05:29 Labs: Laboratory Results - last 24 hr 02/10/24 02/11/24 14:17 05:29 Hold Purple Top SEE NOTE Estim Creat Clear Calc 120.7 Estimated GFR > 60 Random Vancomycin 15.2 Hep Bs Antigen Negative Hep Bs Antibody NONREACTIVE Hep B Core Total Ab Nonreactive Microbiology Microbiology Results: Microbiology 02/05/24 05:51 Blood Culture - Final Blood - Venous No growth after 5 days. 02/05/24 05:51 Blood Culture - Final Blood - Venous No growth after 5 days. Assessment and Plan (1) Staphylococcus aureus bacteremia: Status: Acute Plan d9 38yo M with mild intermittent asthma, polysubstance abuse presenting with fever + R thigh abscess found to have sepsis due to MRSA bacteremia + purulent cellulitis, I+D done in ED 02/02 then admitted to medical-surgical unit sepsis due to MRSA bacteremia with purulent cellultiis IV vancomycin, 4 wk from clear BCx date of 02/04 [thus end date of 03/04], PICC placed 02/07, TTE 02/03 without vegetations, Surgery removed packing 02/07 and recommends dry 4x4 gauze with paper tape, changed bid weakness will check ct head polysubstance dependence with withdrawal -continue methadone as per Addiction Medicine HCV/HIV negative, screen for HBV negative 0.5 cm epidydimal cyst outpt Uro consult, not urgent mood disorder increased bupropion 150->300 mg daily 02/08 mild intermittent asthma not in acute exac prn albuterol VTE ppx LMWH reason for continued hospitalization:awaiting auth Total time managing care of this patient today: 35 minutes. Quality Stroke Does the patient have a stroke diagnosis?: No VTE Prior VTE?: No VTE Risk Level:: Medical - moderate - high VTE Device Contraindication: Treatment Not Indicated VTE Drug Contraindication: N/A - Med Ordered
[2024-02-11] MEDS: hydrOXYzine HCL 25 MG TABLET PO (12:29)
--- NOTE | 2024-02-11 13:33 | MHC.CM.PN ---
[facility] states that guest dosing is not arranged. Notified the recovery nurse. She states that Info was sent to [facility] on Sunday. She is attempting to connect with [facility]. . Unlikely discharge today; because guest dose set up can not be confirmed by [place].
--- NOTE | 2024-02-11 14:45 | MHC.CM.PN ---
[facility]. The recovery nurse has been notified. She reports all documentation re methadone maintenance was faxed Sunday. She has not been able to reach [facility] today. Discharge is unlikely today. Sanjay will follow up with [facility] again tomorrow.
[2024-02-11 16:00] VITALS: BP 152/99; PULSE 60; RESP 14; TEMP 36.4; O2SAT 99
[2024-02-11] MEDS: ALPRAZolam 0.25 MG TABLET PO (16:26)
[2024-02-11 19:02] VITALS: BP 153/90; PULSE 69; RESP 18; TEMP 36.2; O2SAT 100
[2024-02-11 20:43] VITALS: BP 153/90
[2024-02-11] MEDS: hydrOXYzine HCL 50 MG TABLET 100 MG PO (20:43)
[2024-02-12 03:20] VITALS: BP 110/68; PULSE 64; RESP 18; TEMP 36.7; O2SAT 99
[2024-02-12] MEDS: vancomycin HCL 1,500 MG in 0.9 % Sodium Chloride 500 ML 333.33 MG IV (03:41)
[2024-02-12 06:56] LABS: Creatinine Clr Calc Pharmacy 119.3; Estimated Glomerular Filt Rate > 60
[2024-02-12 08:00] VITALS: BP 124/76; PULSE 57; RESP 17; TEMP 36.3; O2SAT 97
--- NOTE | 2024-02-12 08:41 | HO.PM.IMPN ---
Subjective Subjective Date of Service: 02/12/24 Interval History: no new complaints Physical Exam Vital Signs: Vital Signs: Last Vital Signs Temp 97.4 F 02/12/24 08:00 Pulse 57 02/12/24 08:00 Resp 17 02/12/24 08:00 BP 124/76 02/12/24 08:00 Pulse Ox 97 02/12/24 08:00 O2 Del Method Room Air 02/12/24 08:00 BMI result Body Mass Index 21.1 Gen: in no acute distress HEENT: sclera anicteric, moist mucus membranes Neck: supple Lungs: clear to auscultation bilaterally Heart: regular rate and rhythm, no murmurs Abd: soft, non-tender, non-distended Ext: no edema, PICC L brachial Skin: warm/well-perfused, R thigh s/p I+D, wound open and draining with no residual fluctuance Neuro: alert and oriented x3, no focal findings Psych: appropriate affect Objective Data Active Medications Acetaminophen (Acetaminophen 325 Mg Tablet) 975 mg PO Q6H PRN PRN Reason: mild pain, headache or fever Last Admin: 02/07/24 21:28 Dose: 975 mg Documented By: DOLLY Albuterol Sulfate (Albuterol Sulfate 90 Mcg 8 Gm Inhaler) 2 puff INHALE QID PRN PRN Reason: wheezing Bupropion HCl (Bupropion Hcl Xl 300 Mg Tab.Er.24h) 300 mg PO DAILY [facility] Last Admin: 02/11/24 08:32 Dose: 300 mg Documented By: CHUY Clonidine HCl (Clonidine Hcl 0.1 Mg Tablet) 0.1 mg PO BID [facility]; Protocol Last Admin: 02/11/24 20:43 Dose: 0.1 mg Documented By: OTIS Enoxaparin Sodium (Enoxaparin Sodium 40 Mg/0.4 Ml Syringe) 40 mg SUBCUT Q24H [facility] Last Admin: 02/12/24 04:32 Dose: Not Given Documented By: OTIS Non-Admin Reason: Patient Refused Hydroxyzine HCl (Hydroxyzine Hcl 50 Mg Tablet) 100 mg PO BEDTIME [facility] Last Admin: 02/11/24 20:43 Dose: 100 mg Documented By: OTIS Hydroxyzine HCl (Hydroxyzine Hcl 25 Mg Tablet) 25 mg PO Q8H PRN PRN Reason: Anxiety Last Admin: 02/11/24 12:29 Dose: 25 mg Documented By: CHUY Vancomycin HCl 1,500 mg/ (Sodium Chloride) 500 mls @ 333.333 mls/hr IV Q12H [facility] Last Infusion: 02/12/24 05:12 Dose: Infused Documented By: OTIS Ibuprofen (Ibuprofen 400 Mg Tablet) 400 mg PO TIDWM [facility] Last Admin: 02/11/24 16:26 Dose: 400 mg Documented By: TRUNG Melatonin (Melatonin 3 Mg Tablet) 6 mg PO BEDTIME PRN PRN Reason: Insomnia Last Admin: 02/08/24 22:33 Dose: 6 mg Documented By: DOLLY Methadone HCl (Methadone Hcl 20 Mg/2 Ml Oral.Conc) 30 mg PO DAILY [facility] Last Admin: 02/11/24 08:32 Dose: 30 mg Documented By: CHUY Nicotine (Nicotine 21 Mg Patch.Td24) 21 mg TRANSDERMA DAILY [facility] Last Admin: 02/11/24 08:33 Dose: 21 mg Documented By: CHUY Ondansetron HCl (Ondansetron Hcl 4 Mg/2 Ml Vial) 4 mg IVPUSH Q8H PRN PRN Reason: Nausea and Vomiting Oxycodone HCl (Oxycodone Hcl Immed Release 5 Mg Tablet) 5 mg PO Q6H PRN PRN Reason: Pain, Severe (Pain Scale 7-10) Last Admin: 02/11/24 16:26 Dose: 5 mg Documented By: TRUNG Pharmacy Consult (Consult Rx Vancomycin Dosing) 1 each MISCELLANE DAILY PRN PRN Reason: Consult order Sodium Chloride (0.9 % Sodium Chloride Flush 3 Ml Syringe) 3 ml IVFLUSH QSHIFT [facility] Last Admin: 02/12/24 01:22 Dose: Not Given Documented By: OTIS Non-Admin Reason: pt has a picc line Sodium Chloride (0.9 % Sodium Chloride Flush 10 Ml Syringe) 5 ml IVFLUSH TID [facility] Last Admin: 02/11/24 23:17 Dose: 5 ml Documented By: OTIS Labs 02/07/24 10:33 02/12/24 05:52 Labs: Laboratory Results - last 24 hr 02/12/24 05:52 Hold Purple Top SEE NOTE Estim Creat Clear Calc 119.3 Estimated GFR > 60 Assessment and Plan (1) Staphylococcus aureus bacteremia: Status: Acute Plan d9 38yo M with mild intermittent asthma, polysubstance abuse presenting with fever + R thigh abscess found to have sepsis due to MRSA bacteremia + purulent cellulitis, I+D done in ED 02/02 then admitted to medical-surgical unit sepsis due to MRSA bacteremia with purulent cellultiis IV vancomycin, 4 wk from clear BCx date of 02/04 [thus end date of 03/04], PICC placed 02/07, TTE 02/03 without vegetations, Surgery removed packing 02/07 and recommends dry 4x4 gauze with paper tape, changed bid chronic hearing loss possibility of chronic otomastoiditis and an underlying cholesteatoma - outpatient ENT follow up polysubstance dependence with withdrawal -continue methadone as per Addiction Medicine HCV/HIV negative, screen for HBV negative 0.5 cm epidydimal cyst outpt Uro consult, not urgent mood disorder increased bupropion 150->300 mg daily 02/08 mild intermittent asthma not in acute exac prn albuterol VTE ppx LMWH reason for continued hospitalization:awaiting auth Total time managing care of this patient today: 35 minutes. Quality Stroke Does the patient have a stroke diagnosis?: No VTE Prior VTE?: No VTE Risk Level:: Medical - moderate - high VTE Device Contraindication: Treatment Not Indicated VTE Drug Contraindication: N/A - Med Ordered
--- NOTE | 2024-02-12 09:09 | MHC.RECOVRN ---
Pts referral sent to [facility] on 02/07. Voicemail left to confirm receipt and follow up. No return call. Voicemail left x 2 on 02/10. No return call. Voicemail left this morning, awaiting return call.
[2024-02-12] MEDS: methADONE HCl 20 MG/2 ML ORAL.CONC 30 MG PO (09:12)
--- NOTE | 2024-02-12 09:12 | MHC.RECOVRN ---
Pts referral sent to [facility] on 02/06. Voicemail left to confirm receipt and follow up, no return call. Voicemail left x 2 on 02/07, no return call. Voicemail left x 2 on 02/10, no return call. Voicemail left this morning, awaiting return call.
[2024-02-12] MEDS: buPROPion HCl XL 300 MG TAB.ER.24H PO (09:13)
[2024-02-12] MEDS: Ibuprofen 400 MG TABLET PO ×3 (09:13→17:54)
[2024-02-12] MEDS: Nicotine 21 MG PATCH.TD24 TRANSDERMA (09:13)
[2024-02-12] MEDS: 0.9 % Sodium Chloride Flush 10 ML SYRINGE 5 ML IVFLUSH ×3 (09:14→20:58)
[2024-02-12 09:16] VITALS: BP 144/89
[2024-02-12] MEDS: cloNIDine HCL 0.1 MG TABLET PO ×2 (09:16→20:57)
[2024-02-12] MEDS: hydrOXYzine HCL 25 MG TABLET PO (09:21)
[2024-02-12] MEDS: ALPRAZolam 0.25 MG TABLET PO (13:11)
[2024-02-12 14:29] LABS: Vancomycin Random 16.3 mcg/mL (15-20)
[2024-02-12] MEDS: vancomycin HCL 1,500 MG in 0.9 % Sodium Chloride 500 ML 333 MG IV (15:37)
[2024-02-12 16:00] VITALS: BP 132/90; PULSE 68; RESP 13; TEMP 36.4; O2SAT 99
[2024-02-12 19:16] VITALS: BP 155/94; PULSE 56; RESP 18; TEMP 36.7; O2SAT 98
[2024-02-12] MEDS: Melatonin 3 MG TABLET 6 MG PO (20:54)
[2024-02-12] MEDS: hydrOXYzine HCL 50 MG TABLET 100 MG PO (20:54)
[2024-02-12] MEDS: oxyCODONE HCl Immed Release 5 MG TABLET PO (21:17)
--- NOTE | 2024-02-12 21:46 | P.CDIM_ITS ---
PROVIDER RESPONSE TEXT: To clarify, the appropriate diagnosis supported by the clinical indicators: I & D right lateral thigh: Please see addendum for procedural note QUERY TEXT: PHYSICIAN'S DOCUMENTATION REQUEST Date of Query: 02/12/2024 12:47 PM EDT Patient Name: Maurice Cabrera Admit Date: 02/03/2024 Dear Vic Singleton, MEDICAL QUERY A review of the medical record indicates additional documentation may be needed. Please review below and update the documentation accordingly. Clinical Indicators: ED 02/02 Procedure: I&D: Right lateral thigh Technique: Incised with blade I did incise and drain the abscess and only a small amount of purulent material was expressed from th e incision. I did open up the incision site and more deeply explored the wound with hemostats and was not able to get more purulent material our of the wound. The wound was packed, patient was ordered to get Zosyn 4.5 g IV and vancomycin 1750 mg IV. Could you provide, in the Progress Notes, further clarification regarding the type and nature of the I & D: I & D right lateral thigh Please specify - non-excisional, excisional, depth: skin, subcutaneous tissue and fat etc. Other (explain) Clinically unable to determine (explain) Thank you, Clementina Lee, CCS, CDIS Use of terms such as suspected, likely, concern for, or probable (associated with a specific diagnosi s that is being evaluated, monitored, or treated as if it exists) are acceptable and can be coded in the inpatient se tting, when documented at the time of discharge. Please use your independent medical judgment in providing your response. THIS QUERY IS PART OF THE PERMANENT MEDICAL RECORD
[2024-02-13 03:14] VITALS: BP 111/65; PULSE 54; RESP 18; TEMP 36.1; O2SAT 100
[2024-02-13] MEDS: vancomycin HCL 1,500 MG in 0.9 % Sodium Chloride 500 ML 333.33 MG IV ×2 (03:32→16:10)
[2024-02-13] MEDS: oxyCODONE HCl Immed Release 5 MG TABLET PO (06:05)
[2024-02-13 06:28] LABS: Creatinine Clr Calc Pharmacy 119.3; Estimated Glomerular Filt Rate > 60
[2024-02-13 07:36] VITALS: BP 114/68; PULSE 55; RESP 18; TEMP 36.6; O2SAT 98
[2024-02-13 08:52] VITALS: BP 114/68
[2024-02-13] MEDS: buPROPion HCl XL 300 MG TAB.ER.24H PO (08:52)
[2024-02-13] MEDS: cloNIDine HCL 0.1 MG TABLET PO ×2 (08:52→21:10)
[2024-02-13] MEDS: Nicotine 21 MG PATCH.TD24 TRANSDERMA (08:52)
[2024-02-13] MEDS: Ibuprofen 400 MG TABLET PO ×3 (08:52→16:10)
[2024-02-13] MEDS: methADONE HCl 20 MG/2 ML ORAL.CONC 30 MG PO (08:52)
--- NOTE | 2024-02-13 09:02 | P.PNIM_ITS ---
Subjective Subjective Date of Service: 02/13/24 Interval History: no new complaints Physical Exam 2 Vital Signs: Vital Signs: Last Vital Signs Temp 97.9 F 02/13/24 07:36 Pulse 55 02/13/24 07:36 Resp 18 02/13/24 07:36 BP 114/68 02/13/24 08:52 Pulse Ox 98 02/13/24 07:36 O2 Del Method Room Air 02/13/24 07:36 BMI result Body Mass Index 21.1 Gen: in no acute distress HEENT: sclera anicteric, moist mucus membranes Neck: supple Lungs: clear to auscultation bilaterally Heart: regular rate and rhythm, no murmurs Abd: soft, non-tender, non-distended Ext: no edema, PICC L brachial Skin: warm/well-perfused, R thigh s/p I+D, wound open and draining with no residual fluctuance Neuro: alert and oriented x3, no focal findings Psych: appropriate affect Objective Data Active Medications Acetaminophen (Acetaminophen 325 Mg Tablet) 975 mg PO Q6H PRN PRN Reason: mild pain, headache or fever Last Admin: 02/07/24 21:28 Dose: 975 mg Documented By: DOLLY Albuterol Sulfate (Albuterol Sulfate 90 Mcg 8 Gm Inhaler) 2 puff INHALE QID PRN PRN Reason: wheezing Bupropion HCl (Bupropion Hcl Xl 300 Mg Tab.Er.24h) 300 mg PO DAILY [facility] Last Admin: 02/13/24 08:52 Dose: 300 mg Documented By: ARTURO Clonidine HCl (Clonidine Hcl 0.1 Mg Tablet) 0.1 mg PO BID [facility]; Protocol Last Admin: 02/13/24 08:52 Dose: 0.1 mg Documented By: ARTURO Enoxaparin Sodium (Enoxaparin Sodium 40 Mg/0.4 Ml Syringe) 40 mg SUBCUT Q24H [facility] Last Admin: 02/13/24 03:13 Dose: Not Given Documented By: ALESSANDRO Non-Admin Reason: Patient Refused Hydroxyzine HCl (Hydroxyzine Hcl 50 Mg Tablet) 100 mg PO BEDTIME [facility] Last Admin: 02/12/24 20:54 Dose: 100 mg Documented By: ALESSANDRO Hydroxyzine HCl (Hydroxyzine Hcl 25 Mg Tablet) 25 mg PO Q8H PRN PRN Reason: Anxiety Last Admin: 02/12/24 09:21 Dose: 25 mg Documented By: CHUY Vancomycin HCl 1,500 mg/ (Sodium Chloride) 500 mls @ 333.333 mls/hr IV Q12H [facility] Last Infusion: 02/13/24 04:51 Dose: Infused Documented By: ALESSANDRO Ibuprofen (Ibuprofen 400 Mg Tablet) 400 mg PO TIDWM [facility] Last Admin: 02/13/24 08:52 Dose: 400 mg Documented By: ARTURO Melatonin (Melatonin 3 Mg Tablet) 6 mg PO BEDTIME PRN PRN Reason: Insomnia Last Admin: 02/12/24 20:54 Dose: 6 mg Documented By: ALESSANDRO Methadone HCl (Methadone Hcl 20 Mg/2 Ml Oral.Conc) 30 mg PO DAILY [facility] Last Admin: 02/13/24 08:52 Dose: 30 mg Documented By: ARTURO Nicotine (Nicotine 21 Mg Patch.Td24) 21 mg TRANSDERMA DAILY [facility] Last Admin: 02/13/24 08:52 Dose: 21 mg Documented By: ARTURO Ondansetron HCl (Ondansetron Hcl 4 Mg/2 Ml Vial) 4 mg IVPUSH Q8H PRN PRN Reason: Nausea and Vomiting Pharmacy Consult (Consult Rx Vancomycin Dosing) 1 each MISCELLANE DAILY PRN PRN Reason: Consult order Sodium Chloride (0.9 % Sodium Chloride Flush 3 Ml Syringe) 3 ml IVFLUSH QSHIFT [facility] Last Admin: 02/13/24 08:56 Dose: Not Given Documented By: ARTURO Non-Admin Reason: PICC Sodium Chloride (0.9 % Sodium Chloride Flush 10 Ml Syringe) 5 ml IVFLUSH TID [facility] Last Admin: 02/12/24 20:58 Dose: 5 ml Documented By: ALESSANDRO Labs 02/07/24 10:33 02/13/24 06:06 Labs: Laboratory Results - last 24 hr 02/12/24 02/13/24 13:58 06:06 Hold Purple Top SEE NOTE Estim Creat Clear Calc 119.3 Estimated GFR > 60 Random Vancomycin 16.3 Assessment and Plan (1) Staphylococcus aureus bacteremia: Status: Acute Plan 38yo M with mild intermittent asthma, polysubstance abuse presenting with fever + R thigh abscess found to have sepsis due to MRSA bacteremia + purulent cellulitis, I+D done in ED 02/02 then admitted to medical-surgical unit sepsis due to MRSA bacteremia with purulent cellultiis IV vancomycin, 4 wk from clear BCx date of 02/04 [thus end date of 03/04/24], PICC placed 02/07, TTE 02/03 without vegetations, Surgery removed packing 02/07 and recommends dry 4x4 gauze with paper tape, changed bid chronic hearing loss possibility of chronic otomastoiditis and an underlying cholesteatoma - outpatient ENT follow up polysubstance dependence with withdrawal -continue methadone as per Addiction Medicine HCV/HIV negative, screen for HBV negative 0.5 cm epidydimal cyst outpt Uro consult, not urgent mood disorder increased bupropion 150->300 mg daily 02/08 mild intermittent asthma not in acute exac prn albuterol VTE ppx LMWH reason for continued hospitalization:awaiting auth Total time managing care of this patient today: 35 minutes. Quality Stroke Does the patient have a stroke diagnosis?: No VTE Prior VTE?: No VTE Risk Level:: Medical - moderate - high VTE Device Contraindication: Treatment Not Indicated VTE Drug Contraindication: N/A - Med Ordered
--- NOTE | 2024-02-13 11:33 | MHC.RECOVRN ---
Spoke with JOHNNY Sweeney, at [facility]. Pt is all set to dose. [facility] is closed tomorrow, 02/13, however, will reopen on 02/14. Pt is able to begin dosing 02/14. [facility] will need last dose letter and discharge paperwork faxed to [phone]. CM aware.
--- NOTE | 2024-02-13 15:09 | MHC.CM.PN ---
per rounds pt ready for dc per [facility] cant get auth as ins is closed today due to the holiday
[2024-02-13 15:33] VITALS: BP 117/68; PULSE 58; RESP 18; TEMP 36.3; O2SAT 99
[2024-02-13] MEDS: hydrOXYzine HCL 25 MG TABLET PO (16:10)
[2024-02-13] MEDS: 0.9 % Sodium Chloride Flush 10 ML SYRINGE 5 ML IVFLUSH ×2 (16:12→21:12)
[2024-02-13 18:48] VITALS: BP 147/94; PULSE 64; RESP 18; TEMP 36.4; O2SAT 98
[2024-02-13] MEDS: hydrOXYzine HCL 50 MG TABLET 100 MG PO (21:10)
[2024-02-13] MEDS: Acetaminophen 325 MG TABLET 975 MG PO (21:11)
[2024-02-14 03:00] VITALS: BP 111/59; PULSE 55; RESP 16; TEMP 36.3; O2SAT 99
[2024-02-14] MEDS: vancomycin HCL 1,500 MG in 0.9 % Sodium Chloride 500 ML 333.33 MG IV ×2 (04:08→15:56)
[2024-02-14] MEDS: Ketorolac Tromethamine 30 MG/ML VIAL IVPUSH (05:46)
[2024-02-14 07:00] LABS: Estimated Glomerular Filt Rate > 60
[2024-02-14 08:00] VITALS: BP 118/61; PULSE 54; RESP 17; TEMP 36.3; O2SAT 97
[2024-02-14] MEDS: Nicotine 21 MG PATCH.TD24 TRANSDERMA (08:29)
[2024-02-14 08:30] VITALS: BP 118/61
[2024-02-14] MEDS: buPROPion HCl XL 300 MG TAB.ER.24H PO (08:30)
[2024-02-14] MEDS: Ibuprofen 400 MG TABLET PO ×3 (08:30→15:54)
[2024-02-14] MEDS: cloNIDine HCL 0.1 MG TABLET PO ×2 (08:30→21:26)
[2024-02-14] MEDS: 0.9 % Sodium Chloride Flush 10 ML SYRINGE 5 ML IVFLUSH ×3 (08:31→21:28)
[2024-02-14] MEDS: 0.9 % Sodium Chloride Flush 3 ML SYRINGE IVFLUSH ×2 (08:31→15:55)
[2024-02-14] MEDS: methADONE HCl 20 MG/2 ML ORAL.CONC 30 MG PO (08:32)
[2024-02-14] MEDS: hydrOXYzine HCL 25 MG TABLET PO (11:58)
--- NOTE | 2024-02-14 12:13 | P.PNIM_ITS ---
Subjective Subjective Date of Service: 02/14/24 Interval History: seen and evaluated this morning wound improved no fever or chills no complaints Review of Systems Review of Systems: Yes all other systems are reviewed and are negative Physical Exam 2 Vital Signs: Vital Signs: Last Vital Signs Temp 97.3 F 02/14/24 08:00 Pulse 54 02/14/24 08:00 Resp 17 02/14/24 08:00 BP 118/61 02/14/24 08:30 Pulse Ox 97 02/14/24 08:00 O2 Del Method Room Air 02/14/24 08:00 BMI result Body Mass Index 21.1 Const: Other: Constitutional : Awake, interactive, not in distress Neck : Normal inspection, Supple Cardiovascular : RRR, no JVP, no lower extremity edema Respiratory : good bilateral air entry, no crackles, wheezes or rhonchi Gastrointestinal: soft, lax, Normal bowel sounds, Non tender Skin : Warm, Dry, improved right thigh wound, less indurated, no tenderness Neurological : Alert & oriented x3, No focal deficit Objective Data Active Medications Acetaminophen (Acetaminophen 325 Mg Tablet) 975 mg PO Q6H PRN PRN Reason: mild pain, headache or fever Last Admin: 02/13/24 21:11 Dose: 975 mg Documented By: ALESSANDRO Albuterol Sulfate (Albuterol Sulfate 90 Mcg 8 Gm Inhaler) 2 puff INHALE QID PRN PRN Reason: wheezing Bupropion HCl (Bupropion Hcl Xl 300 Mg Tab.Er.24h) 300 mg PO DAILY [facility] Last Admin: 02/14/24 08:30 Dose: 300 mg Documented By: YANIRA Clonidine HCl (Clonidine Hcl 0.1 Mg Tablet) 0.1 mg PO BID [facility]; Protocol Last Admin: 02/14/24 08:30 Dose: 0.1 mg Documented By: YANIRA Enoxaparin Sodium (Enoxaparin Sodium 40 Mg/0.4 Ml Syringe) 40 mg SUBCUT Q24H [facility] Last Admin: 02/14/24 04:07 Dose: Not Given Documented By: ALESSANDRO Non-Admin Reason: Patient Refused Hydroxyzine HCl (Hydroxyzine Hcl 50 Mg Tablet) 100 mg PO BEDTIME [facility] Last Admin: 02/13/24 21:10 Dose: 100 mg Documented By: ALESSANDRO Hydroxyzine HCl (Hydroxyzine Hcl 25 Mg Tablet) 25 mg PO Q8H PRN PRN Reason: Anxiety Last Admin: 02/14/24 11:58 Dose: 25 mg Documented By: YANIRA Vancomycin HCl 1,500 mg/ (Sodium Chloride) 500 mls @ 333.333 mls/hr IV Q12H [facility] Last Infusion: 02/14/24 05:48 Dose: Infused Documented By: ALESSANDRO Ibuprofen (Ibuprofen 400 Mg Tablet) 400 mg PO TIDWM [facility] Last Admin: 02/14/24 11:55 Dose: 400 mg Documented By: YANIRA Melatonin (Melatonin 3 Mg Tablet) 6 mg PO BEDTIME PRN PRN Reason: Insomnia Last Admin: 02/12/24 20:54 Dose: 6 mg Documented By: ALESSANDRO Methadone HCl (Methadone Hcl 20 Mg/2 Ml Oral.Conc) 30 mg PO DAILY [facility] Last Admin: 02/14/24 08:32 Dose: 30 mg Documented By: YANIRA Nicotine (Nicotine 21 Mg Patch.Td24) 21 mg TRANSDERMA DAILY [facility] Last Admin: 02/14/24 08:29 Dose: 21 mg Documented By: YANIRA Ondansetron HCl (Ondansetron Hcl 4 Mg/2 Ml Vial) 4 mg IVPUSH Q8H PRN PRN Reason: Nausea and Vomiting Pharmacy Consult (Consult Rx Vancomycin Dosing) 1 each MISCELLANE DAILY PRN PRN Reason: Consult order Sodium Chloride (0.9 % Sodium Chloride Flush 3 Ml Syringe) 3 ml IVFLUSH QSHIFT [facility] Last Admin: 02/14/24 08:31 Dose: 3 ml Documented By: YANIRA Sodium Chloride (0.9 % Sodium Chloride Flush 10 Ml Syringe) 5 ml IVFLUSH TID [facility] Last Admin: 02/14/24 08:31 Dose: 5 ml Documented By: YANIRA Labs 02/07/24 10:33 02/14/24 05:35 Labs: Laboratory Results - last 24 hr 02/14/24 05:35 Hold Purple Top SEE NOTE Estim Creat Clear Calc 125.0 Estimated GFR > 60 Assessment and Plan (1) MRSA bacteremia: Status: Acute (2) Abscess of right thigh: Status: Acute Plan 38yo M with mild intermittent asthma, polysubstance abuse presenting with fever + R thigh abscess found to have sepsis due to MRSA bacteremia + purulent cellulitis, I+D done in ED 02/02 then admitted to medical-surgical unit sepsis due to MRSA bacteremia with purulent cellultiis IV vancomycin, 4 wk from clear BCx date of 02/04 [thus end date of 03/04/24], PICC placed 02/07, TTE 02/03 without vegetations Surgery removed packing 02/07 and recommends dry 4x4 gauze with paper tape, changed bid chronic hearing loss possibility of chronic otomastoiditis and an underlying cholesteatoma - outpatient ENT follow up polysubstance dependence with withdrawal -continue methadone as per Addiction Medicine HCV/HIV negative, screen for HBV negative 0.5 cm epidydimal cyst outpt Uro consult, not urgent mood disorder increased bupropion 150->300 mg daily 02/08 mild intermittent asthma not in acute exac prn albuterol VTE ppx LMWH reason for continued hospitalization:awaiting auth Quality Stroke Does the patient have a stroke diagnosis?: No VTE Prior VTE?: No VTE Risk Level:: Medical - moderate - high VTE Device Contraindication: Treatment Not Indicated VTE Drug Contraindication: N/A - Med Ordered
[2024-02-14 14:31] LABS: Vancomycin Random 15.6 mcg/mL (15-20)
[2024-02-14 15:25] VITALS: BP 134/82; PULSE 67; RESP 18; TEMP 36.5; O2SAT 99
[2024-02-14 18:22] VITALS: BP 131/87; PULSE 62; RESP 18; TEMP 36.8; O2SAT 98
[2024-02-14] MEDS: hydrOXYzine HCL 50 MG TABLET 100 MG PO (18:55)
--- NOTE | 2024-02-14 18:59 | PC.NURSE ---
patient mother called unit c/o patient having anxiety. RN to room prior to 19:00 to assess the situation (RN shift start at 19:00). patient found to be shakey, in tears. RN spoke with patient and with permission from Dr. Martínez RN able to give atarax dose before schedule. Patient and RN spoke and after some therapeutic communication/care patient is calm and states that he is depressed and anxious, but now feels heard and appreciated the care. RN let patient know that they will check in more frequently with patient and to please call out if at any time the patient feels unsafe or unwell. Patient states there is no plan to hurt self or anyone else.
[2024-02-15 02:32] VITALS: BP 123/67; PULSE 62; RESP 14; TEMP 36.2; O2SAT 97
[2024-02-15] MEDS: vancomycin HCL 1,500 MG in 0.9 % Sodium Chloride 500 ML 333.33 MG IV (04:04)
[2024-02-15] MEDS: hydrOXYzine HCL 25 MG TABLET PO (04:05)
[2024-02-15] MEDS: Acetaminophen 325 MG TABLET 975 MG PO (04:05)
[2024-02-15 07:10] VITALS: BP 125/77; PULSE 58; RESP 18; TEMP 36.2; O2SAT 96
[2024-02-15 07:18] LABS: Creatinine Clr Calc Pharmacy 134.8; Estimated Glomerular Filt Rate > 60
[2024-02-15 08:03] VITALS: BP 125/77
[2024-02-15] MEDS: cloNIDine HCL 0.1 MG TABLET PO (08:03)
[2024-02-15] MEDS: buPROPion HCl XL 300 MG TAB.ER.24H PO (08:03)
[2024-02-15] MEDS: Ibuprofen 400 MG TABLET PO ×2 (08:03→12:26)
[2024-02-15] MEDS: Nicotine 21 MG PATCH.TD24 TRANSDERMA (08:04)
[2024-02-15] MEDS: methADONE HCl 20 MG/2 ML ORAL.CONC 30 MG PO (08:04)
[2024-02-15] MEDS: 0.9 % Sodium Chloride Flush 3 ML SYRINGE IVFLUSH (08:04)
[2024-02-15] MEDS: 0.9 % Sodium Chloride Flush 10 ML SYRINGE 5 ML IVFLUSH (08:04)
--- NOTE | 2024-02-15 11:22 | MHC.CM.PN ---
PT TO BE DCD TODAY TO [facility] JON[facility] BOOKED FOR 1 PT TO TELL [facility]ILY [facility]
--- NOTE | 2024-02-15 11:48 | PM.DS ---
DS: Providers Provider Date of Service: 02/15/24 Date of admission: 02/03/24 04:12 Primary care physician: None Physician Consults: 02/03/24 04:13 Addiction Medicine Routine Consulting Provider: Addiction Covering Reason for consultation: polysusbstance use disorder 02/03/24 15:52 Consult to Wound Care Routine Reason for consultation: right thigh wound 02/04/24 09:09 Consult to Infectious Diseases Routine [place] [facility] [place] [facility] Reason for consultation: staph aureus bacteremia 02/06/24 09:39 Consult to General Surgery Routine Consulting Provider[place] [facility] [place] [facility] Reason for consultation: Right thigh wound , needs drainage? DS: Diagnosis Discharge Diagnosis (1) MRSA bacteremia: Status: Acute (2) Abscess of right thigh: Status: Acute (3) Sepsis: Status: Acute (4) Opioid use disorder: Status: Acute (5) Cellulitis of right thigh: Status: Acute DS: Summary Hospital Course Hospital Course: From the history and physical by the admitting hospitalist, Ayaan Neumann MD, 02/03/24: This is a 38-year-old male with pertinent history of mild intermittent asthma not on home oxygen, Polysubstance use disorder who presents to the emergency department for concerns of right thigh infection. Patient states this has been ongoing for a while. Initially he noticed red spot on his right upper thigh with subsequently became larger. It is associated with warmth and is painful to touch. Patient has difficulty walking and hence presented to the ER on the day of presentation. He denies history of skin infections in the past. Endorses generalized malaise and fatigability. Patient does endorse that he picks at his skin. Smoked fentanyl mixed with crack cocaine on the day of presentation. No fever, chills, chest discomfort, palpitations, shortness of breath, abdominal pain, changes in urinary or bowel habits. In the emergency department, patient was found to be septic. Right thigh abscess drained by ER provider with foul-smelling purulent drainage Hospital course: 38yo M with mild intermittent asthma, polysubstance abuse, and depression [place] [facility] [place] with fever + R thigh abscess; found to have sepsis due to MRSA bacteremia + purulent cellulitis; I+D done in ED 02/02 then admitted to medical-surgical unit. Echocardiogram negative for vegetations and blood cultures cleared as of 6/11. Infectious Disease recommended 4 weeks of IV vancomycin, thus end date of 03/04. PICC placed 02/07. Abscess packing removed 02/07 and recommend bid dressing changes with dry 4x4 gauze + paper tape. Weekly vancomycin trough and creatinine while on vancomycin IV. Methadone continued. HCV/HIV screen negative. Incidental 0.5 cm epididymal cyst that can followed with an outpatient Urology consult. For depression, bupropion dose increased from 150 to 300 mg daily. He was discharged to [facility] for IV antibiotic treatment of Vancomycin with a plan to finish by 03/04/2024. Discharge plan IV vancomycin via PICC until 03/04/24 then remove PICC weekly SCr + vancomycin trough while on vancomycin continue methadone avoid drug use Recommend follow-up ENT evaluation to guide further management. Time Attestation Discharge Coordination Time (in mins): 44 Quality: Safe Use of Opioids Does Pt have an Active Cancer Diagnosis on the Problem List?: No Quality: Stroke Does the patient have a stroke diagnosis?: No Physical Exam Vital Signs: Vital Signs: Last Vital Signs Temp 97.2 F 02/15/24 07:10 Pulse 58 02/15/24 07:10 Resp 18 02/15/24 07:10 BP 125/77 02/15/24 08:03 Pulse Ox 96 02/15/24 07:10 O2 Del Method Room Air 02/15/24 07:10 BMI result Body Mass Index 21.1 Const: Other: Constitutional : Awake, interactive, not in distress Neck : Normal inspection, Supple Cardiovascular : RRR, no JVP, no lower extremity edema Respiratory : good bilateral air entry, no crackles, wheezes or rhonchi Gastrointestinal: soft, lax, Normal bowel sounds, Non tender Skin : Warm, Dry, improved right thigh wound, less indurated, no tenderness Neurological : Alert & oriented x3, No focal deficit DS: Data Data Completed and Pending Labs on day of discharge: Laboratory Results - last 24 hr 02/14/24 02/15/24 14:00 05:43 Hold Purple Top SEE NOTE Creatinine 0.77 Estim Creat Clear Calc 134.8 Estimated GFR > 60 Random Vancomycin 15.6 Imaging Chest x-ray: Radiologist's impression: ITS Impressions Femur CT 02/03/24 04:07 IMPRESSION: 1. Marked skin thickening and subjacent subcutaneous fat stranding of the right anterolateral proximal thigh, in keeping with the provided history of skin/soft tissue infection. No discrete, rim-enhancing fluid collection identified or evidence of extension into the thigh musculature/osseous involvement. 2. Small, 2 cm focus of subcutaneous packing material centered near the location of greatest skin thickening, likely correlates to location of recent drainage. 3. Mildly enlarged right inguinal lymph nodes, likely reactive. Scrotum Ultrasound 02/04/24 15:18 IMPRESSION: 1. 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 2. A 0.5 cm cyst in the right epididymal head. 3. A small echogenic focus in the left scrotum may represent a scrotal colin. This study was presented today February 05, 2024 for interpretation. Stat results provided at this time as requested by referring provider. Head CT 02/11/24 10:20 IMPRESSION: No acute intracranial pathology. Mild disproportionate prominence of the lateral ventricles may be developmental. No obvious obstructing lesion visible. Adenoid tonsillar hypertrophy. Fluid level in the aditus ad antrum with soft tissue opacification of the left mastoid air cells. Areas of osseous thinning in the tegmen mastoideum as well. Additional soft tissue density at the expected site of the reported short process of the incus in the epitympanum of the left middle ear cavity. Perceived retraction of the tympanic membrane. The possibility of chronic otomastoiditis and an underlying cholesteatoma cannot be ruled out. Recommend follow-up ENT evaluation to guide further management. Discharge Plan Discharge Anticipated Discharge Date/Time: 02/11/24 16:36 Patient Disposition: Xfer [facility] Discharge Diagnosis: sepsis due to MRSA bacteremia with purulent cellulitis/abscess of thigh Referrals: [facility] [place] Primary Horacio Phillips [Provider Group] - 1 Week [facility] [Outside] - 1 Week Torrey Silva [Physician] - 1 Week (he possibility of chronic otomastoiditis and an underlying cholesteatoma cannot be ruled out) PhysicianLuis [Primary Care Provider] - 1 Week Discharge Medications: New vancomycin 1.5 gram recon soln 1.5 g IV Q12H nicotine 21 mg/24 hr Patch 24 Hour 21 mg transdermal DAILY Qty: 30 0RF acetaminophen 325 mg Tablet 975 mg PO Q6H PRN (Reason: mild pain, headache or fever) Qty: 1 0RF methadone [Methadose] 10 mg/mL Concentrate 30 mg PO DAILY Qty: 1 0RF Rx Instructions: Partial Fill upon patient request. oxycodone 5 mg Tablet 5 mg PO Q8H PRN (Reason: Pain, Severe (Pain Scale 7-10)) Qty: 10 0RF Rx Instructions: Partial Fill upon patient request. bupropion HCl 300 mg Tablet Extended Release 24 Hr 300 mg PO DAILY Qty: 1 0RF hydroxyzine HCl 25 mg Tablet 25 mg PO Q8H PRN (Reason: Anxiety) Qty: 30 0RF Continued hydroxyzine pamoate 100 mg capsule 100 mg PO BEDTIME clonidine HCl 0.1 mg tablet 0.1 mg PO BID albuterol sulfate [Ventolin HFA] 90 mcg/actuation HFA aerosol inhaler 2 puff inhalation QID PRN (Reason: wheezing) Discontinued bupropion HCl 150 mg tablet extended release 24 hr 150 mg PO QAM Discharge Orders: Discharge Order (Routine); Ordered 02/15/24 Ordered By: Madeline Martínez Diet: Advance to usual diet Activity on Discharge: As tolerated Stand Alone Forms: Patient Portal Discharge page Print Language: Congolese Care Plan Goals: IV vancomycin via PICC until 03/04/24 then remove PICC weekly SCr + vancomycin trough while on vancomycin continue methadone avoid drug use Recommend follow-up ENT evaluation to guide further management. establish primary care [facility] Concerns: sepsis due to MRSA bacteremia with purulent cellulitis/abscess of thigh Plan of Treatment: Read below Assessment: See Discharge Summary.
[2024-02-15] MEDS: ALPRAZolam 0.25 MG TABLET PO (12:26)
== END 2024-02-15 13:45 | disposition skilled nursing facility (03) | DRG 720 ==
LOC: HO.ED 03:37 → HO.EDOVER 04:16 → HO.S3 13:04
PROVIDERS: Family Medicine; Internal Medicine; Nurse Practitioner Psychiatric/Mental Health; Admitting Provider Student in an Organized Health Care Education/Training Program; Emergency Provider Emergency Medicine Emergency Medical Services; Visit Provider Student in an Organized Health Care Education/Training Program
DX: A41.02 Sepsis due to Methicillin resistant Staphylococcus aureus (principal); L02.415 Cutaneous abscess of right lower limb; B95.62 Methicillin resistant Staphylococcus aureus infection as the cause of diseases classified elsewhere; F11.23 Opioid dependence with withdrawal; F17.210 Nicotine dependence, cigarettes, uncomplicated; N50.3 Cyst of epididymis; H70.12 Chronic mastoiditis, left ear; F19.230 Other psychoactive substance dependence with withdrawal, uncomplicated; F32.A Depression, unspecified; H71.92 Unspecified cholesteatoma, left ear; L03.115 Cellulitis of right lower limb; J45.20 Mild intermittent asthma, uncomplicated; Z71.6 Tobacco abuse counseling; Z79.899 Other long term (current) drug therapy
CPT/HCPCS: 36415; 36573; 70450; 73701; 76870; 80048; 80053; 80202; 80307; 82565; 83605; 85025; 85027; 85652; 86140; 86704; 86706; 86803; 87040; 87070; 87077; 87186; 87205; 87340; 87389; 93306; 99285; C1751; C1894; J1650; J1885; J2543; J3370; J3371; Q9967

== ENCOUNTER 2024-02-03 04:12 | Outpatient (BNV) | payer OTHER, SELFPAY | END 2024-02-04 07:00 | PROVIDERS: Admitting Provider Student in an Organized Health Care Education/Training Program; Emergency Provider Emergency Medicine Emergency Medical Services; Visit Provider Internal Medicine | DX: I36.1 Nonrheumatic tricuspid (valve) insufficiency (principal) | CPT/HCPCS: 93306 ==

== ENCOUNTER → 2024-02-03 04:12 | Outpatient (BNV) | payer OTHER, SELFPAY | PROVIDERS: Admitting Provider Student in an Organized Health Care Education/Training Program; Emergency Provider Emergency Medicine Emergency Medical Services; Visit Provider Internal Medicine | DX: F11.90 Opioid use, unspecified, uncomplicated (principal); L03.115 Cellulitis of right lower limb; R78.81 Bacteremia; B95.61 Methicillin susceptible Staphylococcus aureus infection as the cause of diseases classified elsewhere | CPT/HCPCS: 99222 ==

== ENCOUNTER → 2024-02-03 04:12 | Outpatient (BNV) | payer OTHER, SELFPAY | PROVIDERS: Admitting Provider Student in an Organized Health Care Education/Training Program; Emergency Provider Emergency Medicine Emergency Medical Services; Visit Provider Surgery | DX: L02.415 Cutaneous abscess of right lower limb (principal) | CPT/HCPCS: 99222; 99232 ==

== ENCOUNTER → 2024-02-03 04:12 | Outpatient (BNV) | payer OTHER, SELFPAY | PROVIDERS: Admitting Provider Student in an Organized Health Care Education/Training Program; Emergency Provider Emergency Medicine Emergency Medical Services; Visit Provider Student in an Organized Health Care Education/Training Program | DX: L03.115 Cellulitis of right lower limb (principal); A41.9 Sepsis, unspecified organism; B95.62 Methicillin resistant Staphylococcus aureus infection as the cause of diseases classified elsewhere; R78.81 Bacteremia; F11.90 Opioid use, unspecified, uncomplicated | CPT/HCPCS: 99222; 99232; 99239; 99499 ==

== ENCOUNTER → 2024-02-03 04:12 | Outpatient (BNV) | payer OTHER, SELFPAY | PROVIDERS: Admitting Provider Student in an Organized Health Care Education/Training Program; Emergency Provider Emergency Medicine Emergency Medical Services; Visit Provider Nurse Practitioner Psychiatric/Mental Health | DX: F11.90 Opioid use, unspecified, uncomplicated (principal) | CPT/HCPCS: 99232 ==